=== PATIENT | male | born 1955 | race Caucasian/White ===

== ENCOUNTER → 2018-02-06 | Outpatient (CLI) | payer OTHER ==
[~2018-02-06] MED LIST: BENA10 PO; ESCI5 PO; LIDO5TP TOP; ONDA4 PO; OXYACE5T PO; POTCHL10ER PO
[2018-02-06 11:26] LABS: Microalbumin, Random Urine 10.8 mg/L (0.000-20.000)
[2018-02-06 11:27] LABS: Microalb/Creat Ratio UR, Rand 5.482 mg/g (0.000-30.000)
== END | disposition home or self-care (01) ==
LOC: LAB SHORT 08:08 → LAB EV 08:08
PROVIDERS: Hospitalist
DX: E78.4 Other hyperlipidemia (principal); R73.02 Impaired glucose tolerance (oral); I10 Essential (primary) hypertension
CPT/HCPCS: 82043; 82570

== ENCOUNTER → 2019-01-29 | Outpatient (CLI) | payer OTHER | END | disposition home or self-care (01) | LOC: LAB SHORT 16:41 → LAB 16:41 | DX: F19.10 Other psychoactive substance abuse, uncomplicated (principal) ==

== ENCOUNTER 2019-04-22 02:05 | Observation (INO) | payer OTHER ==
[~2019-04-22] VITALS: Ht 182.9 cm; Wt 154.0 kg
[~2019-04-22 02:05] MED LIST changes: -BENA10 PO; +ESCI20 PO; -ESCI5 PO; +Lotensin40 MG PO
[2019-04-22 03:53] LABS: BASOPHILS ABSOLUTE AUTO 0.05 K/mm3 (0.00-0.23); BASOPHILS PERCENT AUTO 0 % (0-2); EOSINOPHILS ABSOLUTE AUTO 0.26 K/mm3 (0.00-0.68); EOSINOPHILS PERCENT AUTO 2 % (0-6); Hematocrit 33.7 % (37.0-53.0); Hemoglobin 10.6 g/dL (13.5-17.5); IMMATURE GRAN ABSOLUTE AUTO 0.04 K/mm3 (0.00-0.10); IMMATURE GRAN PERCENT AUTO 0 % (0-1); LYMPHOCYTES ABSOLUTE AUTO 1.16 K/mm3 (0.84-5.20); LYMPHOCYTES PERCENT AUTO 10 % (21-46); MONOCYTES ABSOLUTE AUTO 0.83 K/mm3 (0.16-1.47); MONOCYTES PERCENT AUTO 7 % (4-13); Mean Corpuscular HGB 29.9 pg (26.0-34.0); Mean Corpuscular HGB Conc 31.5 g/dL (31.5-36.5); Mean Corpuscular Volume 95 fL (80-100); Mean Platelet Volume 9.9 fL (9.1-12.4); NEUTROPHILS ABSOLUTE AUTO 9.36 K/mm3 (1.96-9.15); NEUTROPHILS PERCENT AUTO 80 % (41-73); Platelet Count 256 K/mm3 (150-400); RDW Coefficient Variation 13.3 % (11.7-14.2); RDW Standard Deviation 47.3 fL (35.1-46.3); Red Blood Cell Count 3.54 M/mm3 (4.30-5.90)
[2019-04-22 04:17] LABS: Alanine Aminotransfer (ALT/SGP 21 U/L (12-78); Albumin/Globulin Ratio 0.9 (0.8-1.8); Alk Phos 89 U/L (50-136); Anion Gap 5 mmol/L (6-16); Aspartate Aminotrans (AST/SGOT 64 U/L (12-37); Bilirubin, Total 0.4 mg/dL (0.1-1.0); Blood Urea Nitrogen 15 mg/dL (8-24); Bun/Creatinine Ratio 16.8 (12.0-20.0); CO2, Blood 28 mmol/L (21-32); Calcium, Blood 8.6 mg/dL (8.5-10.1); Chloride, Blood 108 mmol/L (98-108); Creatinine, Blood 0.89 mg/dL (0.60-1.20); Globulin, Blood 3.3 g/dL (2.2-4.0); Glomerular Filtration Rate >60 (60-); Glucose, Blood 114 mg/dL (70-99); Potassium, Blood 4.9 mmol/L (3.5-5.5); Sodium, Blood 141 mmol/L (136-145); Total Protein, Blood 6.3 g/dL (6.4-8.2); Troponin I 0.015 ng/mL (0.000-0.040)
[2019-04-22 07:40] LABS: Source, Urine Clean Catch
[2019-04-22 07:45] LABS: Bilirubin, Urine Neg (Neg); Blood, Urine Neg (Neg); Glucose Qualitative, Urine Neg (Neg); Ketones, Urine Neg (Neg); Leukocyte Esterase, Urine 1+ (Neg); Nitrite, Urine Neg (Neg); Protein, Urine 1+ (Neg); Specific Gravity, Urine 1.015 (1.003-1.022); Urobilinogen, Urine NORM (Normal)
[2019-04-22 07:52] LABS: Appearance, Urine Clear (Clear); Color, Urine Yellow (P-Yellow)
[2019-04-22 07:54] LABS: Red Blood Cells, Urine 0-2 /hpf (0-2)
[2019-04-22 07:55] LABS: Bacteria Rare /hpf; Squamous Epithelial Cells Rare /hpf (Few)
--- NOTE | 2019-04-22 14:42 | NUR ---
PT. SITTING ON EDGE OF BED, DRESSING ON LUMBAR SURGICAL INCISION STARTING TO ROLL UP. STRAIGHTENED IT OUT AND REINFORCED THE BOTTOM OF DRESSING. DSG ON DRAIN SITE SATURATED WITH ROSS FLUID. REMOVED DRESSING AND CLEANED AREA WITH SKINTEGRITY AND REPLACED WITH MEPILEX DRSG.
--- NOTE | 2019-04-22 18:16 | NUR ---
PT. OUT WALKING IN MONREAL WITH CANE, TOLERATING WELL . PT. HAS BACK BRACE IN PLACE. NO NOTEABLE CHANGES THIS SHIFT. RT HAS CHECKED OUT HIS CPAP AND SET IT UP.
[2019-04-23 05:07] LABS: BASOPHILS ABSOLUTE AUTO 0.02 K/mm3 (0.00-0.23); BASOPHILS PERCENT AUTO 0 % (0-2); EOSINOPHILS ABSOLUTE AUTO 0.56 K/mm3 (0.00-0.68); EOSINOPHILS PERCENT AUTO 7 % (0-6); Hematocrit 29.4 % (37.0-53.0); IMMATURE GRAN ABSOLUTE AUTO 0.03 K/mm3 (0.00-0.10); IMMATURE GRAN PERCENT AUTO 0 % (0-1); LYMPHOCYTES ABSOLUTE AUTO 1.15 K/mm3 (0.84-5.20); LYMPHOCYTES PERCENT AUTO 13 % (21-46); MONOCYTES ABSOLUTE AUTO 0.53 K/mm3 (0.16-1.47); MONOCYTES PERCENT AUTO 6 % (4-13); Mean Corpuscular HGB 29.7 pg (26.0-34.0); Mean Corpuscular HGB Conc 30.6 g/dL (31.5-36.5); Mean Corpuscular Volume 97 fL (80-100); NEUTROPHILS ABSOLUTE AUTO 6.27 K/mm3 (1.96-9.15); NEUTROPHILS PERCENT AUTO 73 % (41-73); Platelet Count 245 K/mm3 (150-400); RDW Coefficient Variation 13.4 % (11.7-14.2); RDW Standard Deviation 48.1 fL (35.1-46.3); Red Blood Cell Count 3.03 M/mm3 (4.30-5.90); White Blood Cell Count 8.56 K/mm3 (4.00-11.30)
[2019-04-23 05:30] LABS: Anion Gap 5 mmol/L (6-16); Blood Urea Nitrogen 15 mg/dL (8-24); Bun/Creatinine Ratio 16.3 (12.0-20.0); CO2, Blood 28 mmol/L (21-32); Chloride, Blood 107 mmol/L (98-108); Creatinine, Blood 0.92 mg/dL (0.60-1.20); Glomerular Filtration Rate >60 (60-); Glucose, Blood 119 mg/dL (70-99); Potassium, Blood 4.4 mmol/L (3.5-5.5); Sodium, Blood 140 mmol/L (136-145)
--- NOTE | 2019-04-23 06:27 | NUR ---
SHIFT SUMMARY PATIENT IS ALERT AND ORIENTED. AMBULATED THROUGH THE MONREAL WITH BACK BRACE ON. PATIENT DID NOT BEND, TWIST OR LIFT ANYTHING HEAVIER THAN 5LBS. PATIENT DID COMPLAIN OF PAIN AND INFORMED ME THAT THE SURGEON WANTED HIM TO BE GETTING HIS PAIN MEDICATIONS Q3 FOR 11 DAYS. PATIENTS ORDERS WERE FOR Q4H. HOSPITALIST CHANGED THIS TO Q3H. PATIENT SLEPT WITH CPAP ON. USES CALL LIGHT APPROPRIATELY. INDEPENDENT IN ROOM. NO NEW CHANGES THROUGHOUT THE NIGHT. VITALS STABLE. NO COMPLAINTS OF CHEST PAIN OR SOB THROUGHOUT SHIFT. DID COMPLAIN OF RIGHT SHOULDER PAIN THAT IS CHRONIC.
--- NOTE | 2019-04-23 18:44 | NUR ---
PT. SITTING ON EDGE OF BED EATING DINNER. FAMILY AT BEDSIDE. PT. PUT ON A FLUID RESTRICITON TODAY OF 1500 ML. HAS BEEN UP AMBULATING IN MONERAL WITH P.T. AND A CANE. BRACE IN PLACE. NO NOTEABLE CHANGES THIS SHIFT.
[2019-04-23 21:23] LABS: Vancomycin, Trough 18.9 ug/mL (5.0-10.0)
--- NOTE | 2019-04-24 05:32 | NUR ---
SHIFT SUMMARY: 63 Y/O OBESE MALE RESTED COMFORTABLY ALL SHIFT WHILE WEARING C-PAP. PTS VOICED ADEQUATE PAIN CONTROL WITH OXYCODONE FOR BACK DISCOMFORT. PT ALERT AND ORIENTED X 4; ABLE SWALLOW ALL MEDICAITIONS WITHOUT ISSUE. PT WEARING BACK BRACE ALL SHIFT WITH BACK DRESSINGS DRY AND INTACT. TELEMETRY REFLECTS NSR. PTS VANCOMYCIN TROUGH LEVEL WAS 18.9 WITH NEXT LEVEL DUE 04/24. PTS BED LOW POSITION, CALL LIGHT AT SIDE.
[2019-04-24 08:32] LABS: BASOPHILS ABSOLUTE AUTO 0.03 K/mm3 (0.00-0.23); BASOPHILS PERCENT AUTO 1 % (0-2); EOSINOPHILS ABSOLUTE AUTO 0.68 K/mm3 (0.00-0.68); EOSINOPHILS PERCENT AUTO 10 % (0-6); Hemoglobin 9.5 g/dL (13.5-17.5); IMMATURE GRAN ABSOLUTE AUTO 0.02 K/mm3 (0.00-0.10); IMMATURE GRAN PERCENT AUTO 0 % (0-1); LYMPHOCYTES ABSOLUTE AUTO 1.07 K/mm3 (0.84-5.20); LYMPHOCYTES PERCENT AUTO 16 % (21-46); MONOCYTES ABSOLUTE AUTO 0.65 K/mm3 (0.16-1.47); MONOCYTES PERCENT AUTO 10 % (4-13); Mean Corpuscular HGB 29.4 pg (26.0-34.0); Mean Corpuscular HGB Conc 30.6 g/dL (31.5-36.5); Mean Corpuscular Volume 96 fL (80-100); Mean Platelet Volume 9.5 fL (9.1-12.4); NEUTROPHILS ABSOLUTE AUTO 4.06 K/mm3 (1.96-9.15); NEUTROPHILS PERCENT AUTO 62 % (41-73); Platelet Count 275 K/mm3 (150-400); RDW Coefficient Variation 13.2 % (11.7-14.2); Red Blood Cell Count 3.23 M/mm3 (4.30-5.90); White Blood Cell Count 6.51 K/mm3 (4.00-11.30)
[2019-04-24 08:50] LABS: Anion Gap 5 mmol/L (6-16); Blood Urea Nitrogen 10 mg/dL (8-24); Bun/Creatinine Ratio 10.4 (12.0-20.0); CO2, Blood 29 mmol/L (21-32); Calcium, Blood 8.4 mg/dL (8.5-10.1); Chloride, Blood 107 mmol/L (98-108); Creatinine, Blood 0.97 mg/dL (0.60-1.20); Glomerular Filtration Rate >60 (60-); Glucose, Blood 123 mg/dL (70-99); Potassium, Blood 4.2 mmol/L (3.5-5.5); Sodium, Blood 141 mmol/L (136-145)
[2019-04-24] MEDS ORDERED: FLUT1DIS5 INH (08:55)
[2019-04-24] MEDS ORDERED: AMLO5 PO (08:57)
[2019-04-24] MEDS ORDERED: COMBIVENT RESPIM4 GM INH (08:58)
[2019-04-24] MEDS ORDERED: CYCL10 PO (08:59)
[2019-04-24] MEDS ORDERED: FURO40 PO (08:59)
[2019-04-24] MEDS ORDERED: FOLI1 PO (08:59)
[2019-04-24] MEDS ORDERED: GABA300 PO (09:00)
[2019-04-24] MEDS ORDERED: METO25ER PO (09:01)
[2019-04-24] MEDS ORDERED: K-Tab10 MEQ PO (09:02)
[2019-04-24] MEDS ORDERED: Percocet 7.5-31 EACH PO (09:02)
[2019-04-24] MEDS ORDERED: AMOCLA500 PO (11:10)
--- NOTE | 2019-04-24 17:51 | NUR ---
DISCHARGE SUMMARY PATIENT A&O X4. C/O PAIN T/O SHIFT. MEDICATED PER E DEC. DENIES SOB OR NAUSEA. SURGICAL DRESSING IN PLACE TO LOWER BACK, WNL. MEPILEX DRESSING TO OLD DRAIN SITE CHANGE THIS SHIFT, C/D/I NO DRAINAGE PRESENT. ALL DISCHARGE INSTRUCTIONS REVIEWED WITH THE PATIENT. MEDICATIONS FAXED. PATIENT EDUCATION PROVIDED. IV D/C, WNL. PATIENT SENT HOME ON AN 1,800 ML FLUID RESTRICTION. MAGISTRATE JUDGE ESCORTED PATIENT OUT, ALL BELONGINGS IN HAND.
== END 2019-04-24 13:28 | disposition home or self-care (01) ==
LOC: ER 02:05 → MEDS 02:06 → ER 06:39 → MEDS 06:39 → ENPENDDIS 04-24 10:17 → MEDS 04-24 13:28
PROVIDERS: Emergency Medicine; Internal Medicine; ADMIT Hospitalist
DX: J18.1 Lobar pneumonia, unspecified organism (principal); E66.9 Obesity, unspecified; R60.0 Localized edema; G47.33 Obstructive sleep apnea (adult) (pediatric); I10 Essential (primary) hypertension; Z79.899 Other long term (current) drug therapy; Z98.890 Other specified postprocedural states; Z88.5 Allergy status to narcotic agent; Z91.040 Latex allergy status; Z99.89 Dependence on other enabling machines and devices
CPT/HCPCS: 36415; 71046; 71260; 80048; 80053; 80202; 81001; 83690; 83880; 84484; 85025; 87086; 93005; 93010; 93306; 94762; 96365-59; 96366; 96367; 96372; 96375; 96375-59; 96376; 97116; 97161; 97530; 99285-25; G0378; J0456; J0696; J1170; J1650; J1940; J2405; J2543; J3370; J7040; J7050; Q9967

== ENCOUNTER → 2019-07-23 | Outpatient (CLI) | payer OTHER ==
[~2019-07-23] MED LIST changes: +AMLO5 PO; +AMOCLA500 PO; +COMBIVENT RESPIM4 GM INH; +CYCL10 PO; +FLUT1DIS5 INH; +FOLI1 PO; +FURO40 PO; +GABA300 PO; +K-Tab10 MEQ PO; +METO25ER PO; +Percocet 7.5-31 EACH PO
[2019-07-23 16:06] LABS: BASOPHILS ABSOLUTE AUTO 0.08 K/mm3 (0.00-0.23); BASOPHILS PERCENT AUTO 1 % (0-2); EOSINOPHILS ABSOLUTE AUTO 0.46 K/mm3 (0.00-0.68); EOSINOPHILS PERCENT AUTO 6 % (0-6); Hematocrit 36.9 % (37.0-53.0); Hemoglobin 11.5 g/dL (13.5-17.5); IMMATURE GRAN ABSOLUTE AUTO 0.02 K/mm3 (0.00-0.10); IMMATURE GRAN PERCENT AUTO 0 % (0-1); LYMPHOCYTES ABSOLUTE AUTO 2.17 K/mm3 (0.84-5.20); LYMPHOCYTES PERCENT AUTO 26 % (21-46); MONOCYTES ABSOLUTE AUTO 0.82 K/mm3 (0.16-1.47); MONOCYTES PERCENT AUTO 10 % (4-13); Mean Corpuscular HGB 25.9 pg (26.0-34.0); Mean Corpuscular HGB Conc 31.2 g/dL (31.5-36.5); Mean Corpuscular Volume 83 fL (80-100); Mean Platelet Volume 9.4 fL (9.1-12.4); NEUTROPHILS ABSOLUTE AUTO 4.79 K/mm3 (1.96-9.15); NEUTROPHILS PERCENT AUTO 58 % (41-73); Platelet Count 287 K/mm3 (150-400); RDW Coefficient Variation 15.7 % (11.7-14.2); RDW Standard Deviation 47.2 fL (35.1-46.3); Red Blood Cell Count 4.44 M/mm3 (4.30-5.90); White Blood Cell Count 8.34 K/mm3 (4.00-11.30)
[2019-07-23 16:18] LABS: Anion Gap 7 mmol/L (6-16); Blood Urea Nitrogen 10 mg/dL (8-24); Bun/Creatinine Ratio 11.4 (12.0-20.0); CO2, Blood 28 mmol/L (21-32); Calcium, Blood 8.1 mg/dL (8.5-10.1); Chloride, Blood 106 mmol/L (98-108); Creatinine, Blood 0.88 mg/dL (0.60-1.20); Glomerular Filtration Rate >60 (60-); Glucose, Blood 97 mg/dL (70-99); Potassium, Blood 3.8 mmol/L (3.5-5.5); Sodium, Blood 141 mmol/L (136-145); Troponin I <0.017 ng/mL (0.000-0.040)
== END | disposition home or self-care (01) ==
LOC: LAB SHORT 16:02 → LAB EV 16:02
PROVIDERS: Physician Assistant Surgical
DX: R06.00 Dyspnea, unspecified (principal)
CPT/HCPCS: 80048; 83880; 84484; 85025

== ENCOUNTER → 2020-03-10 | Outpatient (CLI) | payer OTHER | END | disposition home or self-care (01) | LOC: LAB 14:14 → LAB SHORT 14:14 | DX: J45.909 Unspecified asthma, uncomplicated (principal) | CPT/HCPCS: 87070; 87077; 87186; 87205 ==

== ENCOUNTER → 2020-03-31 | Outpatient (CLI) | payer OTHER | END | disposition home or self-care (01) | LOC: LAB 08:37 → LAB SHORT 08:37 | DX: J44.9 Chronic obstructive pulmonary disease, unspecified (principal) | CPT/HCPCS: 87070; 87077; 87186; 87205 ==

== ENCOUNTER 2022-07-29 19:04 | Emergency (ER) | payer OTHER ==
[~2022-07-29] VITALS: Ht 182.9 cm; Wt 136.1 kg
== END 2022-07-29 19:52 | disposition home or self-care (01) ==
LOC: ER 19:04
DX: S01.01XA Laceration without foreign body of scalp, initial encounter (principal); I10 Essential (primary) hypertension; W22.09XA Striking against other stationary object, initial encounter; Z91.040 Latex allergy status; Z88.5 Allergy status to narcotic agent; Z79.899 Other long term (current) drug therapy; Z96.649 Presence of unspecified artificial hip joint; Z96.612 Presence of left artificial shoulder joint; Z87.891 Personal history of nicotine dependence
CPT/HCPCS: 12001; 99282-25

== ENCOUNTER → 2022-11-23 | Outpatient (CLI) | payer OTHER ==
[2022-11-23 12:56] LABS: Creatinine, Urine Random 29.1 mg/dL (27.00-270.00)
[2022-11-23 12:59] LABS: Microalb/Creat Ratio UR, Rand 82.131 mg/g (0.000-30.000); Microalbumin, Random Urine 23.9 mg/L (0.000-20.000)
== END | disposition home or self-care (01) ==
LOC: LAB 08:47 → LAB SHORT 08:47
PROVIDERS: Hospitalist
DX: I10 Essential (primary) hypertension (principal); R60.9 Edema, unspecified
CPT/HCPCS: 82043; 82570

== ENCOUNTER 2022-12-13 21:31 | Inpatient (IN) | payer OTHER ==
[~2022-12-13] VITALS: Ht 182.9 cm; Wt 145.2 kg
[2022-12-13 23:14] LABS: BASOPHILS ABSOLUTE AUTO 0.08 K/mm3 (0.00-0.23); BASOPHILS PERCENT AUTO 1 % (0-2); EOSINOPHILS ABSOLUTE AUTO 0.29 K/mm3 (0.00-0.68); EOSINOPHILS PERCENT AUTO 3 % (0-6); Hematocrit 47.7 % (37.0-53.0); Hemoglobin 15.8 g/dL (13.5-17.5); IMMATURE GRAN ABSOLUTE AUTO 0.07 K/mm3 (0.00-0.10); IMMATURE GRAN PERCENT AUTO 1 % (0-1); LYMPHOCYTES ABSOLUTE AUTO 3.59 K/mm3 (0.84-5.20); LYMPHOCYTES PERCENT AUTO 38 % (21-46); MONOCYTES ABSOLUTE AUTO 1.06 K/mm3 (0.16-1.47); MONOCYTES PERCENT AUTO 11 % (4-13); Mean Corpuscular HGB Conc 33.1 g/dL (31.5-36.5); Mean Corpuscular Volume 100 fL (80-100); Mean Platelet Volume 9.6 fL (9.1-12.4); NEUTROPHILS ABSOLUTE AUTO 4.37 K/mm3 (1.96-9.15); NEUTROPHILS PERCENT AUTO 46 % (41-73); Platelet Count 247 K/mm3 (150-400); RDW Coefficient Variation 14.5 % (11.7-14.2); RDW Standard Deviation 53.6 fL (35.1-46.3); Red Blood Cell Count 4.79 M/mm3 (4.30-5.90); White Blood Cell Count 9.46 K/mm3 (4.00-11.30)
[2022-12-13 23:36] LABS: Magnesium, Blood 2.6 mg/dL (1.6-2.4)
[2022-12-13 23:38] LABS: Base Excess Venous 1.1 mmol/L; Bicarbonate Venous 24.1 mmol/L (24.0-30.0); pH Blood Venous 7.32 (7.34-7.37)
[2022-12-14 00:14] LABS: Albumin, Blood 3.5 g/dL (3.4-5.0); Albumin/Globulin Ratio 0.9 (0.8-1.8); Bilirubin, Total 0.5 mg/dL (0.1-1.0); Bun/Creatinine Ratio 27.2 (12.0-20.0); Calcium, Blood 8.6 mg/dL (8.5-10.1); Creatinine, Blood 0.96 mg/dL (0.60-1.20); Globulin, Blood 4.1 g/dL (2.2-4.0); Potassium, Blood 4.2 mmol/L (3.5-5.5); Total Protein, Blood 7.6 g/dL (6.4-8.2)
[2022-12-14 00:59] LABS: Influenza A, PCR NEGATIVE (NEGATIVE); Influenza B, PCR NEGATIVE (NEGATIVE); Resp Syncytial Virus, PCR NEGATIVE (NEGATIVE); SARS-Cov-2 (COVID-19) PCR, MMC NEGATIVE (NEGATIVE)
[2022-12-14 05:48] LABS: BASOPHILS ABSOLUTE AUTO 0.08 K/mm3 (0.00-0.23); BASOPHILS PERCENT AUTO 1 % (0-2); EOSINOPHILS ABSOLUTE AUTO 0.18 K/mm3 (0.00-0.68); EOSINOPHILS PERCENT AUTO 2 % (0-6); Hematocrit 44.6 % (37.0-53.0); Hemoglobin 14.4 g/dL (13.5-17.5); IMMATURE GRAN ABSOLUTE AUTO 0.07 K/mm3 (0.00-0.10); IMMATURE GRAN PERCENT AUTO 1 % (0-1); LYMPHOCYTES PERCENT AUTO 27 % (21-46); MONOCYTES ABSOLUTE AUTO 1.07 K/mm3 (0.16-1.47); MONOCYTES PERCENT AUTO 12 % (4-13); Mean Corpuscular HGB 32.1 pg (26.0-34.0); Mean Corpuscular HGB Conc 32.3 g/dL (31.5-36.5); Mean Corpuscular Volume 100 fL (80-100); Mean Platelet Volume 9.3 fL (9.1-12.4); NEUTROPHILS ABSOLUTE AUTO 5.02 K/mm3 (1.96-9.15); NEUTROPHILS PERCENT AUTO 57 % (41-73); Platelet Count 235 K/mm3 (150-400); RDW Coefficient Variation 14.7 % (11.7-14.2); RDW Standard Deviation 53.9 fL (35.1-46.3); Red Blood Cell Count 4.48 M/mm3 (4.30-5.90); White Blood Cell Count 8.82 K/mm3 (4.00-11.30)
--- NOTE | 2022-12-14 06:00 | NUR ---
END OF SHIFT NURSING REPORT - PM Patient admitted for acute respiratory failure with eTOH 363 and states drinking wiskey last night. CIWA 7 and medicated with Librium. BP 180/74 , medicated with hydralazine as ordered. Hx of sleep apnea, facility provided CPAP initiated upon arrival. He declines pain, but states headache and feeling anxious. 2 nurse skin assessment completed. Abdomen round and distended, abdominal sounds active in all quadrants. Opted IN for Flu Vaccine and administered to left deltoid.
[2022-12-14 07:24] LABS: Albumin, Blood 3.3 g/dL (3.4-5.0); Albumin/Globulin Ratio 0.8 (0.8-1.8); Bilirubin, Total 0.3 mg/dL (0.1-1.0); Bun/Creatinine Ratio 27.7 (12.0-20.0); Calcium, Blood 8.2 mg/dL (8.5-10.1); Creatinine, Blood 0.83 mg/dL (0.60-1.20); Potassium, Blood 4.1 mmol/L (3.5-5.5); Total Protein, Blood 7.3 g/dL (6.4-8.2)
[2022-12-14] MEDS ORDERED: FORMOTEROL20 MCG/2 M INH (10:45)
[2022-12-14] MEDS ORDERED: BUDESONIDE1 MG/2 M1 INH (10:46)
[2022-12-14] MEDS ORDERED: ATROVENT HFA12.9 GM INH (10:47)
[2022-12-14] MEDS ORDERED: BUPRENO-NALOX1 EACH SL (11:08)
[2022-12-14] MEDS ORDERED: INDERAL XL80 MG PO (11:09)
[2022-12-14] MEDS ORDERED: POTCHL10ER PO (11:10)
[2022-12-14] MEDS ORDERED: IBUP800 PO (11:14)
[2022-12-14] MEDS ORDERED: MAGNESIUM OXID500 MG PO (11:14)
[2022-12-14] MEDS ORDERED: Prinivil10 MG PO (11:15)
[2022-12-14] MEDS ORDERED: PANT40 PO (11:16)
[2022-12-14] MEDS ORDERED: AMOX-CLAV 875-1 EAC5 PO (11:17)
[2022-12-14] MEDS ORDERED: ALPR.25 PO (11:18)
[2022-12-14] MEDS ORDERED: ESCI20 PO (11:19)
[2022-12-14] MEDS ORDERED: ALBU90OI INH (11:19)
[2022-12-14] MEDS ORDERED: GABA300 PO (11:20)
[2022-12-14] MEDS ORDERED: XARELTO20 MG PO (11:21)
[2022-12-14] MEDS ORDERED: Buspirone HCl15 MG PO (11:22)
[2022-12-14] MEDS ORDERED: CYCL10 PO (11:23)
[2022-12-14] MEDS ORDERED: CATAPRES0.1 MG PO (11:40)
[2022-12-14] MEDS ORDERED: LASIX40 MG PO (11:41)
[2022-12-14] MEDS ORDERED: SPIR50 PO (11:42)
[2022-12-14] MEDS ORDERED: OLME20 PO (11:42)
--- NOTE | 2022-12-14 17:03 | NUR ---
PT IS A/OX4, PLEASANT AND COOPERATIVE. FLUSHED LOOK. PT IS UP WITH ASSIST TO THE BATHROOM. PT IS SHAKEY AND HAS MILD HALUCINATIONS AT TIMES. ATIVAN AND LIBRIUM GIVEN FOR WD SYMPTOMS. THE PT WAS GIVEN PRN HYDRAZOLINE FOR ELEVATED BP TODAY. PT IS ON TELE. PT MEDICATED FOR PAIN X2 SO FAR TODAY. CALL LIGHT IN REACH. WILL CONTINUE TO MONITOR AND ASSESS FOR CHANGES.
--- NOTE | 2022-12-15 05:41 | NUR ---
PT IS A&O4, SB TO THE BR, USES CPAP @NIGHT, CIWAS <7 OVERNIGHT, PT STATES FEELS MUCH BETTER, NO COMPLAINTS OF PAIN OR DISCOMFORT,CONTINUE POC
--- NOTE | 2022-12-15 18:15 | NUR ---
PT IS A/OX4, PLEASANT AND COOPERATIVE. THE PT IS UP IND IN HIS ROOM TO THE BATHROOM. TODAY THE PT SEEMED TO HAVE LESS TREMOR COMPARED TO YESTERDAY. THE PT DENIED ANY HALUCINATIONS TODAY. PT WAS GIVEN LIBRIUM X2 SO FAR TODAT. PT WAS MEDICATED FOR CHRONIC BACK PAIN X3 SO FAR TODAY. PT RECIEVED BREATHING TX'S T/O THE DAY. PT IS ON 02 1L/MIN PT WERE CPAP WHILE NAPPING. CALL LIGHT IN REWACH. WILL CONTINUE TO MONITOR AND ASSESS FOR CHANGES
[2022-12-16 04:48] LABS: BASOPHILS ABSOLUTE AUTO 0.01 K/mm3 (0.00-0.23); BASOPHILS PERCENT AUTO 0 % (0-2); EOSINOPHILS PERCENT AUTO 0 % (0-6); Hematocrit 45.6 % (37.0-53.0); Hemoglobin 15.2 g/dL (13.5-17.5); IMMATURE GRAN ABSOLUTE AUTO 0.07 K/mm3 (0.00-0.10); IMMATURE GRAN PERCENT AUTO 1 % (0-1); LYMPHOCYTES PERCENT AUTO 12 % (21-46); MONOCYTES ABSOLUTE AUTO 0.59 K/mm3 (0.16-1.47); MONOCYTES PERCENT AUTO 6 % (4-13); Mean Corpuscular HGB 32.8 pg (26.0-34.0); Mean Corpuscular HGB Conc 33.3 g/dL (31.5-36.5); Mean Corpuscular Volume 98 fL (80-100); Mean Platelet Volume 9.9 fL (9.1-12.4); NEUTROPHILS ABSOLUTE AUTO 8.57 K/mm3 (1.96-9.15); NEUTROPHILS PERCENT AUTO 82 % (41-73); Platelet Count 234 K/mm3 (150-400); RDW Coefficient Variation 14.2 % (11.7-14.2); RDW Standard Deviation 51.5 fL (35.1-46.3); Red Blood Cell Count 4.64 M/mm3 (4.30-5.90); White Blood Cell Count 10.44 K/mm3 (4.00-11.30)
[2022-12-16 05:09] LABS: Albumin, Blood 3.5 g/dL (3.4-5.0); Albumin/Globulin Ratio 0.9 (0.8-1.8); Bilirubin, Direct 0.1 mg/dL (0.0-0.3); Bilirubin, Indirect 0.6 mg/dL (0.1-0.7); Bilirubin, Total 0.7 mg/dL (0.1-1.0); Bun/Creatinine Ratio 41.7 (12.0-20.0); Calcium, Blood 8.9 mg/dL (8.5-10.1); Creatinine, Blood 0.98 mg/dL (0.60-1.20); Globulin, Blood 3.9 g/dL (2.2-4.0); Phosphorus, Blood 3.9 mg/dL (2.5-4.9); Potassium, Blood 4.9 mmol/L (3.5-5.5); Total Protein, Blood 7.4 g/dL (6.4-8.2)
--- NOTE | 2022-12-16 06:12 | NUR ---
SHIFT SUMMARY; NO ACUTE CHANGES OVERNIGHT. THE PT IS AXO X4 AND INDEPENDENT TO THE BATHROOM. THE PT USES CPAP AT NIGHT WITH 3L BLEED IN, O2 SATS WERE >92%. TELE IS IN PLACE, SINUS MOHIT IN THE 50'S T/O THE NIGHT. THE OPT REQUESTED PRN PAIN MEDICATION TWICE FOR CHRONIC PAIN LAST NIGHT. THE PT WAS HYPERTENSIVE LAST, HYDRALAZINE WAS GIVEN TWICE. THIS AM THE PTS B/P REMAINED UNCHANGED FROM RECIEVEING HYDRALAZINE. CURRENTLY THE PT IS RESTING IN BED WITH NO ACUTE COMPLAINTS, THE BED IS IN THE LOWEST POSITION AND THE CALL LIGHT IS AT BEDSIDE.
--- NOTE | 2022-12-16 14:59 | NUR ---
O2 OFF. PER MD ORDER, TURNED PT'S O2 OFF TO TRIAL ON RA WHILE IN BED RESTING. O2 SATS ARE REMAINING >95% ON RA WHILE IN BED RESTING.
--- NOTE | 2022-12-16 18:54 | NUR ---
SHIFT SUMMARY A&O X 4. VSS. INDEPENDENT IN THE ROOM FOR RESTROOM USE. MEDICATED FOR C/O CHRONIC BACK PAIN PER EMAR WITH GOOD RELIEF STATED BY PT. PT IS MAINTAINING O2 SATS >95% ON RA. WEARS C-PAP AT NOC WITH 2 L'S O2 BLEED IN. NEW PIV STARTED IN L AC WITH 20 G X 1 ATTEMPT. PIV IN R AC LEAKING, DC'D WITH CATH TIP INTACT, NO REDNESS OE SWELLING NOTED. PT PLEASANT & COOPERATIVE WITH ALL CARE.
[2022-12-17 04:57] LABS: BASOPHILS ABSOLUTE AUTO 0.01 K/mm3 (0.00-0.23); BASOPHILS PERCENT AUTO 0 % (0-2); EOSINOPHILS PERCENT AUTO 0 % (0-6); Hematocrit 42.4 % (37.0-53.0); Hemoglobin 14.2 g/dL (13.5-17.5); IMMATURE GRAN ABSOLUTE AUTO 0.08 K/mm3 (0.00-0.10); IMMATURE GRAN PERCENT AUTO 1 % (0-1); LYMPHOCYTES PERCENT AUTO 12 % (21-46); MONOCYTES ABSOLUTE AUTO 0.29 K/mm3 (0.16-1.47); MONOCYTES PERCENT AUTO 4 % (4-13); Mean Corpuscular HGB 32.9 pg (26.0-34.0); Mean Corpuscular HGB Conc 33.5 g/dL (31.5-36.5); Mean Corpuscular Volume 98 fL (80-100); Mean Platelet Volume 10.3 fL (9.1-12.4); NEUTROPHILS ABSOLUTE AUTO 7.01 K/mm3 (1.96-9.15); NEUTROPHILS PERCENT AUTO 84 % (41-73); Platelet Count 211 K/mm3 (150-400); RDW Coefficient Variation 14.1 % (11.7-14.2); RDW Standard Deviation 51.4 fL (35.1-46.3); Red Blood Cell Count 4.31 M/mm3 (4.30-5.90); White Blood Cell Count 8.39 K/mm3 (4.00-11.30)
[2022-12-17 05:20] LABS: Albumin, Blood 3.2 g/dL (3.4-5.0); Anion Gap 5 mmol/L (6-16); Blood Urea Nitrogen 56 mg/dL (8-24); Bun/Creatinine Ratio 49.1 (12.0-20.0); CO2, Blood 24 mmol/L (21-32); Calcium, Blood 8.3 mg/dL (8.5-10.1); Chloride, Blood 103 mmol/L (98-108); Creatinine, Blood 1.14 mg/dL (0.60-1.20); Glomerular Filtration Rate 71 (60-); Glucose, Blood 218 mg/dL (70-99); Phosphorus, Blood 4.5 mg/dL (2.5-4.9); Potassium, Blood 4.9 mmol/L (3.5-5.5); Sodium, Blood 132 mmol/L (136-145)
--- NOTE | 2022-12-17 06:45 | NUR ---
LYING IN SEMI FOWLERS WITH EYES OPEN WHILE EATING A SNACK AND WATCHING TV. HAS RESTED MINIMALLY THIS SHIFT. HE WAS ABLE TO SLEEP FROM 11M TO 5AM. ONCE HE WOKE UP HE WAS UPSET THAT NURSING DIDN'T WAKE HIM UP TO MEDICATE HIM FOR PAIN. NURSING REITERATED THAT PRN MEDS ARE GIVEN WHEN ASKED FOR AND SCHEDULED MEDS ARE GIVEN WHEN SCHEDULED. AND THAT HIS PAIN MEDS ARE PRN. HE VOICED UNDERSTANDING FOR THE SECOND TIME, BUT STATED THAT HE BELIEVED THAT HIS PAIN MEDS SHOULD BE SCHEDULED. CONTINENT OF BOWEL AND BLADDER, ABLE TO AMBULATE TO BATHROOM. CURRENTLY DENIES PAIN, DISCOMFORT, OR FURTHER NEEDS. SAFETY MEASURES IN PLACE. WILL GIVE HAND OFF TO ONCOMING SHIFT USING SBAR DURING BEDSIDE REPORT. WILL CONTINUE TO MONITOR AND ADDRESS NEEDS THEY ARISE.
--- NOTE | 2022-12-17 18:19 | NUR ---
SHIFT SUMMARY PT HAS NOT HAD A BM FOR 4 DAYS, BOWEL CARE ONGOING SINCE YESTERDAY WITH NO RESULTS. PROVIDED MORE ORDERS FOR MOM & MAG CITRATE WELL SENOKOT, COLACE & MIRALAX. PT HAS BEEN UP & AMBULATING HALLS. IS ON RA WITH SATS MAINTAINING >94%. WEARS C-PAP AT [facility] WITH BLEED IN OF 2 L'S O2. CONT BI-OX IS WORN AT [facility]. PT IS A&O X 4, INDEPENDENT, IS PLEASANT & COOPERATIVE WITH ALL CARE.
--- NOTE | 2022-12-18 04:14 | NUR ---
SHIFT SUMMARY; NO ACUTE CHANGES OVERNIGHT. THE PT RESTED IN BED T/O THE NIGHT. THE PT IS AXO X4 AND INDEPENDENT IN THE ROOM. THE PT WAS MEDICATED WITH FLEXIRIL AND PERCOCET FOR CHRONIC PAIN OVER THE NIGHT. TELE IS IN PLACE, SINUS MOHIT 40/50'S T/O THE NIGHT. THE PT SLEPT WITH HIS CPAP ON, 2L BLEED IN WITH O2 SATS >95%. CURRENTLY THE PT IS RESTING IN BED WITH THE BED IN THE LOWEST POSITION AND THE CALL LIGHT AT BEDSIDE.
[2022-12-18 05:22] LABS: BASOPHILS ABSOLUTE AUTO 0.02 K/mm3 (0.00-0.23); BASOPHILS PERCENT AUTO 0 % (0-2); EOSINOPHILS ABSOLUTE AUTO 0.01 K/mm3 (0.00-0.68); EOSINOPHILS PERCENT AUTO 0 % (0-6); Hematocrit 42.6 % (37.0-53.0); Hemoglobin 14.2 g/dL (13.5-17.5); IMMATURE GRAN ABSOLUTE AUTO 0.09 K/mm3 (0.00-0.10); IMMATURE GRAN PERCENT AUTO 1 % (0-1); LYMPHOCYTES ABSOLUTE AUTO 2.19 K/mm3 (0.84-5.20); LYMPHOCYTES PERCENT AUTO 20 % (21-46); MONOCYTES ABSOLUTE AUTO 1.31 K/mm3 (0.16-1.47); MONOCYTES PERCENT AUTO 12 % (4-13); Mean Corpuscular HGB 32.8 pg (26.0-34.0); Mean Corpuscular HGB Conc 33.3 g/dL (31.5-36.5); Mean Corpuscular Volume 98 fL (80-100); Mean Platelet Volume 10.1 fL (9.1-12.4); NEUTROPHILS ABSOLUTE AUTO 7.24 K/mm3 (1.96-9.15); NEUTROPHILS PERCENT AUTO 67 % (41-73); Platelet Count 200 K/mm3 (150-400); RDW Coefficient Variation 14.1 % (11.7-14.2); RDW Standard Deviation 51.3 fL (35.1-46.3); Red Blood Cell Count 4.33 M/mm3 (4.30-5.90); White Blood Cell Count 10.86 K/mm3 (4.00-11.30)
[2022-12-18 05:42] LABS: Albumin, Blood 3.1 g/dL (3.4-5.0); Anion Gap 2 mmol/L (6-16); Blood Urea Nitrogen 49 mg/dL (8-24); CO2, Blood 27 mmol/L (21-32); Calcium, Blood 8.5 mg/dL (8.5-10.1); Chloride, Blood 107 mmol/L (98-108); Creatinine, Blood 1.02 mg/dL (0.60-1.20); Glomerular Filtration Rate 82 (60-); Glucose, Blood 158 mg/dL (70-99); Phosphorus, Blood 3.8 mg/dL (2.5-4.9); Potassium, Blood 5.2 mmol/L (3.5-5.5); Sodium, Blood 136 mmol/L (136-145)
--- NOTE | 2022-12-18 09:37 | NUR ---
SIMRAN ELDER GAVE VERBAL OK TO GIVE ALL AM MEDS. MD MORRIS PT'S HR WAS 52.
[2022-12-18] MEDS ORDERED: BUPR150ER PO (18:20)
[2022-12-18] MEDS ORDERED: PRED20 PO (18:21)
[2022-12-18] MEDS ORDERED: ACAMPROSATE CA333 MG PO (18:22)
[2022-12-18] MEDS ORDERED: Percocet 10-321 EACH PO (18:22)
--- NOTE | 2022-12-18 18:49 | NUR ---
PT BROUGHT DOWN TO ER ENTRANCE AND PICKED UP BY JOSÉ MIGUEL-FRIEND TO BRING HIM HOME. PT STABLE. PT LEFT WITH ALL BELONGINGS AND SIGNED ALL REQUIRED PAPERWORK.
== END 2022-12-18 19:09 | disposition home or self-care (01) | DRG 189 ==
LOC: ER 21:31 → MEDS 12-14 02:52
PROVIDERS: Internal Medicine Endocrinology, Diabetes & Metabolism; Student in an Organized Health Care Education/Training Program; ADMIT Internal Medicine
PROC: 3E02340 Introduction of Influenza Vaccine into Muscle, Percutaneous Approach (ICD-10-PCS; principal; 2022-12-14)
PROC: 5A09457 Assistance with Respiratory Ventilation, 24-96 Consecutive Hours, Continuous Positive Airway Pressure (ICD-10-PCS; 2022-12-14)
DX: J96.01 Acute respiratory failure with hypoxia (principal); J82.83 Eosinophilic asthma; F10.239 Alcohol dependence with withdrawal, unspecified; J45.901 Unspecified asthma with (acute) exacerbation; E87.29 Other acidosis; E87.1 Hypo-osmolality and hyponatremia; R65.10 Systemic inflammatory response syndrome (SIRS) of non-infectious origin without acute organ dysfunction; R74.01 Elevation of levels of liver transaminase levels; I10 Essential (primary) hypertension; F41.1 Generalized anxiety disorder; R94.31 Abnormal electrocardiogram [ECG] [EKG]; I48.0 Paroxysmal atrial fibrillation; F41.0 Panic disorder [episodic paroxysmal anxiety]; G89.4 Chronic pain syndrome; K59.00 Constipation, unspecified; G47.33 Obstructive sleep apnea (adult) (pediatric); B96.20 Unspecified Escherichia coli [E. coli] as the cause of diseases classified elsewhere; B96.1 Klebsiella pneumoniae [K. pneumoniae] as the cause of diseases classified elsewhere; Z20.822 Contact with and (suspected) exposure to COVID-19; Z96.643 Presence of artificial hip joint, bilateral; Z96.612 Presence of left artificial shoulder joint; Z98.890 Other specified postprocedural states; Z87.891 Personal history of nicotine dependence; Z23 Encounter for immunization; Z88.5 Allergy status to narcotic agent; Z91.040 Latex allergy status; Z79.899 Other long term (current) drug therapy; Z79.52 Long term (current) use of systemic steroids; Z79.01 Long term (current) use of anticoagulants; Z79.891 Long term (current) use of opiate analgesic; Z79.2 Long term (current) use of antibiotics; Z99.81 Dependence on supplemental oxygen
CPT/HCPCS: 0241U; 36415; 71045; 76705; 80053; 80069; 82248; 82803; 83605; 83735; 83880; 84100; 84145; 84484; 85025; 87040; 87070; 87077; 87186; 87205; 90686; 93005; 93010; 94640; 94644; 94645; 94660; 94664; 94760; 94762; 96365; 96375; 99285-25; A9270; G0480; J0360; J0456; J0696; J1650; J2060; J2920; J2930; J3475; J7030; J7050; J7060; J7626

== ENCOUNTER 2023-05-23 21:51 | Emergency (ER) | payer SELFPAY ==
[~2023-05-23] VITALS: Ht 175.3 cm; Wt 145.2 kg
[~2023-05-23 21:51] MED LIST changes: +ACAMPROSATE CA333 MG PO; +ALBU90OI INH; +ALPR.25 PO; +AMOX-CLAV 875-1 EAC5 PO; +ATROVENT HFA12.9 GM INH; +BUDESONIDE1 MG/2 M1 INH; +BUPR150ER PO; +BUPRENO-NALOX1 EACH SL; +Buspirone HCl15 MG PO; +CATAPRES0.1 MG PO; +FORMOTEROL20 MCG/2 M INH; +IBUP800 PO; +INDERAL XL80 MG PO; +LASIX40 MG PO; +MAGNESIUM OXID500 MG PO; +OLME20 PO; +PANT40 PO; +PRED20 PO; +Percocet 10-321 EACH PO; +Prinivil10 MG PO; +SPIR50 PO; +XARELTO20 MG PO
[2023-05-23 22:12] LABS: Base Excess Venous -0.2 mmol/L; Bicarbonate Venous 23.4 mmol/L (24.0-30.0); PCO2 Venous 52.4 mmHg (38-42); pH Blood Venous 7.31 (7.34-7.37)
[2023-05-23 22:13] LABS: BASOPHILS ABSOLUTE AUTO 0.05 K/mm3 (0.00-0.23); BASOPHILS PERCENT AUTO 1 % (0-2); EOSINOPHILS ABSOLUTE AUTO 0.24 K/mm3 (0.00-0.68); EOSINOPHILS PERCENT AUTO 3 % (0-6); Hematocrit 38.8 % (37.0-53.0); Hemoglobin 12.2 g/dL (13.5-17.5); IMMATURE GRAN ABSOLUTE AUTO 0.02 K/mm3 (0.00-0.10); IMMATURE GRAN PERCENT AUTO 0 % (0-1); LYMPHOCYTES ABSOLUTE AUTO 2.37 K/mm3 (0.84-5.20); LYMPHOCYTES PERCENT AUTO 31 % (21-46); MONOCYTES PERCENT AUTO 9 % (4-13); Mean Corpuscular HGB Conc 31.4 g/dL (31.5-36.5); Mean Corpuscular Volume 102 fL (80-100); Mean Platelet Volume 9.4 fL (9.1-12.4); NEUTROPHILS ABSOLUTE AUTO 4.25 K/mm3 (1.96-9.15); NEUTROPHILS PERCENT AUTO 56 % (41-73); Platelet Count 229 K/mm3 (150-400); RDW Coefficient Variation 16.9 % (11.7-14.2); RDW Standard Deviation 62.2 fL (35.1-46.3); Red Blood Cell Count 3.81 M/mm3 (4.30-5.90); White Blood Cell Count 7.63 K/mm3 (4.00-11.30)
[2023-05-23 22:56] LABS: Bilirubin, Total 0.3 mg/dL (0.1-1.0); Calcium, Blood 7.6 mg/dL (8.5-10.1); Creatinine, Blood 1.62 mg/dL (0.60-1.20); Potassium, Blood 3.8 mmol/L (3.5-5.5)
[2023-05-24 01:30] VITALS: BP 155/126
== END 2023-05-24 02:11 | disposition home or self-care (01) ==
LOC: ER 21:51
PROVIDERS: Student in an Organized Health Care Education/Training Program
DX: J44.1 Chronic obstructive pulmonary disease with (acute) exacerbation (principal); N17.9 Acute kidney failure, unspecified; R14.0 Abdominal distension (gaseous); I10 Essential (primary) hypertension; Z91.040 Latex allergy status; Z88.5 Allergy status to narcotic agent; Z79.52 Long term (current) use of systemic steroids; Z79.51 Long term (current) use of inhaled steroids; Z79.01 Long term (current) use of anticoagulants; Z79.899 Other long term (current) drug therapy; Z87.891 Personal history of nicotine dependence
CPT/HCPCS: 71046; 80053; 82803; 83880; 84484; 85025; 93005; 93010; 94640; 94664; 96374; 99284-25; J2930

== ENCOUNTER 2023-07-15 16:49 | Inpatient (IN) | payer MEDICARE ==
[~2023-07-15] VITALS: Ht 182.9 cm; Wt 160.2 kg
[2023-07-15 17:41] LABS: BASOPHILS ABSOLUTE AUTO 0.08 K/mm3 (0.00-0.23); BASOPHILS PERCENT AUTO 1 % (0-2); EOSINOPHILS ABSOLUTE AUTO 0.02 K/mm3 (0.00-0.68); EOSINOPHILS PERCENT AUTO 0 % (0-6); Hematocrit 42.2 % (37.0-53.0); Hemoglobin 14.7 g/dL (13.5-17.5); IMMATURE GRAN ABSOLUTE AUTO 0.08 K/mm3 (0.00-0.10); IMMATURE GRAN PERCENT AUTO 1 % (0-1); LYMPHOCYTES PERCENT AUTO 25 % (21-46); MONOCYTES ABSOLUTE AUTO 0.93 K/mm3 (0.16-1.47); MONOCYTES PERCENT AUTO 10 % (4-13); Mean Corpuscular HGB 35.6 pg (26.0-34.0); Mean Corpuscular HGB Conc 34.8 g/dL (31.5-36.5); Mean Corpuscular Volume 102 fL (80-100); NEUTROPHILS ABSOLUTE AUTO 5.64 K/mm3 (1.96-9.15); NEUTROPHILS PERCENT AUTO 62 % (41-73); NRBC ABSOLUTE 0.03 K/mm3 (0.00-0.02); NRBC Auto 0.3 /100 WBC (0.0-0.2); Platelet Count 285 K/mm3 (150-400); RDW Coefficient Variation 18.6 % (11.7-14.2); RDW Standard Deviation 69.2 fL (35.1-46.3); Red Blood Cell Count 4.13 M/mm3 (4.30-5.90); White Blood Cell Count 9.05 K/mm3 (4.00-11.30)
[2023-07-15 18:14] LABS: Albumin, Blood 3.5 g/dL (3.4-5.0); Albumin/Globulin Ratio 0.9 (0.8-1.8); Bilirubin, Total 0.6 mg/dL (0.1-1.0); Bun/Creatinine Ratio 14.6 (12.0-20.0); Calcium, Blood 8.7 mg/dL (8.5-10.1); Creatinine, Blood 0.89 mg/dL (0.60-1.20); Globulin, Blood 3.8 g/dL (2.2-4.0); Potassium, Blood 2.4 mmol/L (3.5-5.5); Total Protein, Blood 7.3 g/dL (6.4-8.2)
[2023-07-15] MEDS ORDERED: TORSE20 PO (18:16)
[2023-07-15] MEDS ORDERED: LAMO25 PO (18:17)
[2023-07-15] MEDS ORDERED: OXYACE7.5T PO (18:18)
[2023-07-15] MEDS ORDERED: FLUT1DIS2 BC (18:23)
[2023-07-15 22:22] LABS: Magnesium, Blood 2.8 mg/dL (1.6-2.4)
[2023-07-15 22:44] LABS: Potassium, Blood 2.4 mmol/L (3.5-5.5)
--- NOTE | 2023-07-15 22:47 | NUR ---
CALLED ED AND RECEIVED REPORT FROM CARRIE FRANKLIN.
--- NOTE | 2023-07-15 23:09 | NUR ---
PT'S HOME MEDS SENT TO PHARMACY PER ED NURSE.
--- NOTE | 2023-07-15 23:15 | NUR ---
PT ARRIVED TO 351 VIA GURNEY FROM THE ER. A/O X 4. ABLE TO TRANSFER SELF TO BED. PT CAN STAND AND MOVE INDEPENDENTLY. WILL CONTINUE TO PROVIDE CARE T/O SHIFT. CALL LT IN REACH.
[2023-07-15 23:18] VITALS: BP 195/115
[2023-07-16] VITALS (12 sets, daily range): BP systolic 125–186; BP diastolic 82–137
--- NOTE | 2023-07-16 02:23 | NUR ---
CPAP IN PLACE. CONT OXIMETER ON, SATS 93%. NS INFUSING AT 100 MLS/HR, FOLIC ACID INFUSING, KCL IVPB INFUSING. CALL LT IN REACH.
--- NOTE | 2023-07-16 04:15 | NUR ---
NOTIFIED DR THAT PT WAS UNABLE TO VOID AND REQUEST A PENA CATHETER. ORDER GIVEN. 16 COUDE PENA PLACED FOR RETENTION USING STERILE TECHNIQUE. IMMEDIATELY AFTER INSERTION GREAT RETURN OF YELLOW URINE FLOWED INTO BAG. PT STATES FEELING RELIEF. PT HAD TRIED TO VOID BEFORE CATHETER PLACEMENT AND HEART RATE BECAME ELEVATED. DR WAS NOTIFIED OF ELEVATED HEART RATE. ORDER TO DO AN EKG WAS RECEIVED WELL IV LOPRESSOR. PT IS ON TELE.
[2023-07-16 05:28] LABS: U Amphetamine Screen Not Detected; U Barbituate Screen Not Detected; U Benzodiazapine Screen DETECTED; U Methamphetamine Screen Not Detected; U Oxycodone Screen DETECTED
[2023-07-16 05:29] LABS: U Buprenorphine Screen Not Detected; U Cannabinoids Screen Not Detected; U Cocaine Screen Not Detected; U Methadone Screen Not Detected; U Opiates Screen Not Detected; U Phencyclidine Screen Not Detected; U Propoxyphene Screen Not Detected
--- NOTE | 2023-07-16 05:47 | NUR ---
AFTER GIVING 5 MG IV LOPRESSOR FOR HR SUSTAINED ABOVE 120 PT IS NOW 80'S SINUS RHYTHM.
[2023-07-16 06:13] LABS: BASOPHILS ABSOLUTE AUTO 0.02 K/mm3 (0.00-0.23); BASOPHILS PERCENT AUTO 0 % (0-2); EOSINOPHILS PERCENT AUTO 0 % (0-6); Hematocrit 40.4 % (37.0-53.0); Hemoglobin 13.6 g/dL (13.5-17.5); IMMATURE GRAN ABSOLUTE AUTO 0.04 K/mm3 (0.00-0.10); IMMATURE GRAN PERCENT AUTO 1 % (0-1); LYMPHOCYTES ABSOLUTE AUTO 0.63 K/mm3 (0.84-5.20); LYMPHOCYTES PERCENT AUTO 9 % (21-46); MONOCYTES ABSOLUTE AUTO 0.19 K/mm3 (0.16-1.47); MONOCYTES PERCENT AUTO 3 % (4-13); Mean Corpuscular HGB 34.9 pg (26.0-34.0); Mean Corpuscular HGB Conc 33.7 g/dL (31.5-36.5); Mean Corpuscular Volume 104 fL (80-100); Mean Platelet Volume 8.8 fL (9.1-12.4); NEUTROPHILS ABSOLUTE AUTO 5.79 K/mm3 (1.96-9.15); NEUTROPHILS PERCENT AUTO 87 % (41-73); Platelet Count 242 K/mm3 (150-400); RDW Coefficient Variation 18.7 % (11.7-14.2); RDW Standard Deviation 70.7 fL (35.1-46.3); White Blood Cell Count 6.67 K/mm3 (4.00-11.30)
[2023-07-16 06:27] LABS: Source, Urine Foley catheter
[2023-07-16 06:31] LABS: Appearance, Urine Clear (Clear); Bilirubin, Urine Neg (Neg); Blood, Urine Neg (Neg); Color, Urine Yellow (P-Yellow); Glucose Qualitative, Urine Neg (Neg); Ketones, Urine 4+ (Neg); Leukocyte Esterase, Urine Neg (Neg); Nitrite, Urine Neg (Neg); Protein, Urine 2+ (Neg); Urobilinogen, Urine NORM (Normal)
[2023-07-16 06:38] LABS: Albumin, Blood 3.2 g/dL (3.4-5.0); Albumin/Globulin Ratio 0.9 (0.8-1.8); Bilirubin, Total 0.8 mg/dL (0.1-1.0); Bun/Creatinine Ratio 17.3 (12.0-20.0); Calcium, Blood 8.3 mg/dL (8.5-10.1); Creatinine, Blood 0.87 mg/dL (0.60-1.20); Globulin, Blood 3.6 g/dL (2.2-4.0); Potassium, Blood 2.7 mmol/L (3.5-5.5); Total Protein, Blood 6.8 g/dL (6.4-8.2)
[2023-07-16 06:40] LABS: Bacteria Not Seen /hpf; Mucus Light (0-Heavy); Red Blood Cells, Urine 0-2 /hpf (0-2); Squamous Epithelial Cells Not Seen /hpf (Few); White Blood Cells, Urine 0-2 /hpf (0-5)
[2023-07-16 06:41] LABS: Transitional Epithelial Cells Rare /hpf (0-Rare)
[2023-07-16 07:20] LABS: Adenovirus Not Detected (NOT DETECT); Bordetella pertussis Not Detected (NOT DETECT); Chlamydophila pneumoniae Not Detected (NOT DETECT); Coronavirus 229E Not Detected (NOT DETECT); Coronavirus HKU1 Not Detected (NOT DETECT); Coronavirus NL63 Not Detected (NOT DETECT); Coronavirus OC43 Not Detected (NOT DETECT); Human Metapneumovirus Not Detected (NOT DETECT); Human Rhinovirus/Enterovirus Not Detected (NOT DETECT); Influenza A/2009-H1 Not Detected (NOT DETECT); Influenza A/H1 Not Detected (NOT DETECT); Influenza A/H3 Not Detected (NOT DETECT); Influenza B Not Detected (NOT DETECT); Mycoplasma pneumoniae Not Detected (NOT DETECT); Parainfluenza Virus 1 Not Detected (NOT DETECT); Parainfluenza Virus 2 Not Detected (NOT DETECT); Parainfluenza Virus 3 Not Detected (NOT DETECT); Parainfluenza Virus 4 Not Detected (NOT DETECT); Respiratory Syncytial Virus Not Detected (NOT DETECT); SARS-Cov-2 (COVID-19), BioFire Not Detected (NOT DETECT)
--- NOTE | 2023-07-16 10:53 | NUR ---
NOTE: NOTIFED BY TELE OF PT SUSTAINING 130'S-160'S, PROVIDER NOTIFIED. IV LOPRESSOR ADMINISTERED, PT'S HR NOW AT 87.
--- NOTE | 2023-07-16 11:50 | NUR ---
TRANSFER NOTE TRANSFERRED TO PCU 4, REPORT GIVEN AT THE BS TO PCU NURSE.
--- NOTE | 2023-07-16 12:20 | NUR ---
ASSUMPTION OF CARE PT ARRIVED TO UNIT VIA HOSPITAL BED AT APPROX 1145. BEDSIDE REPORT COMPLETED. AOX4, COOPERATIVE W/ CARE AND RECEPTIVE TO EDUCATION. ACUTE ETOH, DENIES VISUAL HALLUCINATIONS AT THIS TIME. BED ALARM ON. SEE WITHDRAWAL DOCUMENTATION. VSS. TELEMETRY SHOWING SR 70'S. DENIES CP/PRESSURE. CURRENTLY ON RM AIR, SATS >90%. BIPAP PRESENT AT BEDSIDE. PT AMBULATES W/ SBA FWW TO RESTROOM, REPORTS CONSTIPATION, PROVIDED PRUNE JUICE. WILL CONTINUE TO MONITOR. PENA CATHETER IN PLACE DRAINING TO GRAVITY, DRAINING CHELSEA URINE. IS ABLE TO INDEPENDENTLY CHANGE POSITION IN BED. CALL LIGHT IN REACH.
--- NOTE | 2023-07-16 17:25 | NUR ---
SHIFT SUMMARY VSS. ON RM AIR, SATS >90%. TELEMETRY SHOWING SR 80'S. NO REPORT OF CHEST PAIN/PRESSURE. AOX3-4. CIWA'S RANGING 4-18. CURRENTLY EXPERIENCING ANXIETY AND VISUAL HALLUCINATIONS. BED ALARM IN PLACE. ADMINISTERED TOTAL OF 4MG IV ATIVAN AND 50MG LIBRIUM. WILL CONTINUE TO MONITOR. PT REPORTED ONGOING CONSTIPATION, DESPITE ORAL SOFTENERS ADMINISTERED PRIOR TO TRANSFER TO UNIT. PRUNE JUICE PROVIDED W/ NO RELIEF. AT PT REQUEST, ADMINISTERED DULCALOX PER EMAR, MULTIPLE LOOSE BM'S SINCE. AMBULATING TO RESTROOM W/ SBA FWW. CATHETER IN PLACE DRAINING CHELSEA, RED-TINGED URINE. WILL REPORT TO ONCOMING RN.
[2023-07-16 22:17] LABS: Magnesium, Blood 2.6 mg/dL (1.6-2.4)
[2023-07-16 22:18] LABS: Calcium, Blood 8.5 mg/dL (8.5-10.1); Potassium, Blood 2.6 mmol/L (3.5-5.5)
[2023-07-17] VITALS (40 sets, daily range): BP systolic 117–197; BP diastolic 56–108
--- NOTE | 2023-07-17 00:11 | NUR ---
AOC: PATIENT ON ASSUMPTION WAS MINIMALLY WITHDRAWALING, THEN THE SHIFT PROGRESSED AROUND 1999 STARTED TO GO THROUGH INCREASED MENTATION, WITH UNSAFE BEHAVIORS, LEAVING THE BED, TRYING TO FALL OFF THE RAILING. PULLING AT LINES, CORDS, PENA. VISUALIZED PATIENT HAVING HALLUCINATIONS. PATIENT ALERT TO SELF AND PLACE( AT TIMES ), CHRONIC FOEY WAS PINK DUE TO HIM PULLING AT CATH, SITTING ON CATHETER, PULLING. IS STARTING TO MINIMALLY LIGHTENING TO CHELSEA. PATIENT SINCE THE BEGINNING OF THE SHIFT HAS RECIEVED 50 OF LIBRIUM AND 14mg OF ATIVAN, PATIENT I DO NOT BELIEVE WOULD BE CAPABLE OF ALERTLY SWALLOWING. PATIENT RUPA IS WEARING CPAP, SPO2 >94% BED ALARM ON PALLET SORTER HAS ALREADY INSPECTED PATIENT. POWERGLIDE WAS PLACED. PATIENT STILL PREFORMING UNSAFE BEHAVIORS SOON THE ATIVAN WEARS OFF.
--- NOTE | 2023-07-17 06:53 | NUR ---
EOS: PATIENT WITH MUCH IMPROVEMENT WITH ALMOST MAXED OUT ATIVAN FOR 24 HOUR, URINE CHELSEA LESSENING PINK. CURRENLTY ON CPAP OR BIPAP RT INVOLVED WITH SATURATING WELL. PATIENT WAS BATHED PLACED ON GREEN LIFT SHEET, AND WAS EDUCTED, AND ALMOST 1:1 FOR MULTIPLE HOURS THROUGH THE NIGHT, CURRENTLY RESTING WELL SATURATING WELL. VSS IMPROVING CLONIDINE .1mg PATCH PLACED CHARLINE. HYPERTENSIVE AND MODERATELY IMPROVED THIS AM.
--- NOTE | 2023-07-17 07:45 | NUR ---
PT TRANSFERRED TO ICU VIA BED D/T WORSENING WITHDRAWAL, BEDSIDE REPORT GIVEN TO ACCEPTING RN.
--- NOTE | 2023-07-17 08:23 | NUR ---
ASSUMED CARE PATIENT ARRIVED TO ICU FROM PCU @ 0740. PATIENT IS LAYING IN BED WITH EYES CLOSED ON ROOM AIR. SPO2 GREATER THAN 90%. PATIENT ANSWERS QUESTIONS WITH SLURRED SPEECH AND WHISPERING. NO FAMILY AT BEDSIDE. BELONGINGS PALCED IN CUPBOARD IN ROOM. CIWA 14 AT TIME OF ARRIVAL, PRECEDEX STARTED @ 0.3MCG/KG/HR. PADDING APPLIED TO BED SIDERAILS FOR SEIZRURE PRECAUTIONS AND SUCTION AT BEDSIDE. PENA PATENT AND DRAINING DARK ORANGE URINE TO GRAVITY. BEDSIDE REPORT RECEIVED FROM CARRIE JACINTO.
[2023-07-17 08:43] LABS: Albumin, Blood 2.8 g/dL (3.4-5.0); Albumin/Globulin Ratio 0.8 (0.8-1.8); Bilirubin, Total 0.8 mg/dL (0.1-1.0); Bun/Creatinine Ratio 31.1 (12.0-20.0); Calcium, Blood 7.3 mg/dL (8.5-10.1); Creatinine, Blood 0.64 mg/dL (0.60-1.20); Globulin, Blood 3.5 g/dL (2.2-4.0); Potassium, Blood 4.2 mmol/L (3.5-5.5); Total Protein, Blood 6.3 g/dL (6.4-8.2)
[2023-07-17 08:47] LABS: BASOPHILS ABSOLUTE AUTO 0.02 K/mm3 (0.00-0.23); BASOPHILS PERCENT AUTO 0 % (0-2); EOSINOPHILS PERCENT AUTO 0 % (0-6); Hematocrit 40.2 % (37.0-53.0); Hemoglobin 13.5 g/dL (13.5-17.5); IMMATURE GRAN ABSOLUTE AUTO 0.07 K/mm3 (0.00-0.10); IMMATURE GRAN PERCENT AUTO 1 % (0-1); LYMPHOCYTES ABSOLUTE AUTO 1.26 K/mm3 (0.84-5.20); LYMPHOCYTES PERCENT AUTO 8 % (21-46); MONOCYTES ABSOLUTE AUTO 0.91 K/mm3 (0.16-1.47); MONOCYTES PERCENT AUTO 6 % (4-13); Mean Corpuscular HGB 35.7 pg (26.0-34.0); Mean Corpuscular HGB Conc 33.6 g/dL (31.5-36.5); Mean Corpuscular Volume 106 fL (80-100); Mean Platelet Volume 10.1 fL (9.1-12.4); NEUTROPHILS ABSOLUTE AUTO 12.69 K/mm3 (1.96-9.15); NEUTROPHILS PERCENT AUTO 85 % (41-73); NRBC ABSOLUTE 0.02 K/mm3 (0.00-0.02); NRBC Auto 0.1 /100 WBC (0.0-0.2); Platelet Count 202 K/mm3 (150-400); RDW Coefficient Variation 18.9 % (11.7-14.2); RDW Standard Deviation 74.5 fL (35.1-46.3); Red Blood Cell Count 3.78 M/mm3 (4.30-5.90); White Blood Cell Count 14.95 K/mm3 (4.00-11.30)
--- NOTE | 2023-07-17 09:14 | NUR ---
PROLONGED QTC. PATIENT QTC ON MONITOR SHOWS PROLONGATION OVER 600. EKG COMPLETED AND SHOWED QTC OF 652. PRECEDEX PLACED ON SB AND CALL PLACED TO DR. FELIPE TO NOTIFY. DR. FELIPE TO COME SEE PATIENT AT BEDSIDE.
--- NOTE | 2023-07-17 13:14 | NUR ---
ATIVAN ORDERS CURRENT CIWA 15. ORDERS IN EMAR ARE FOR PO ATIVAN BUT PATIENT IS AN ASPIRATION RISK R/T AMS. CALL MADE TO DR. FELIPE FOR UPDATED ATIVAN ORDERS TO BE IV. TELEPHONE ORDERS RECEIVED.
--- NOTE | 2023-07-17 13:38 | NUR ---
EKG RECHECK EKG PERFORMED TO RECHECK QTC AFTER CALCIUM GLUCONATE INF. NEW QTC 554MS DOWN FROM 652MS THIS MORNING. DR. FELIPE NOTIFIED.
--- NOTE | 2023-07-17 18:48 | NUR ---
SHIFT SUMMARY PATIENT REMAINED OFF PRECEDEX FOR MOST OF THE SHIFT D/T PROLONGED QTC AND CIWA APPROPRIATE FOR ATIVAN. MEDICATED WITH ATIVAN PER EMAR. PATIENT HAD ONE RUN OF SVT BUT CONVERTED BACK TO SINUS RHYTHM. PERIODS OF IRREGULAR TACHY RHYTHM ON MONITOR. METOPROLOL 5MG IV PUSH Q5M X [address] DOS[address] BY [address] FELIPE IF NEEDED. BIPAP PLACED ON PATIENT AT 16/7 WITH SPO2 LOW TO MID 90'S. PENA PATENT AND DRAINING TO GRAVITY. NO OTHER CHANGES DURING SHIFT.
--- NOTE | 2023-07-17 21:03 | NUR ---
PATIENT RESTLESS AND MOANING, OPENS EYES TO VERBAL, MOANING WHEN ASKED QUESTIONS, BIPAP OFF AND ORAL CARE DONE PATIENT RESP 30'S AND CONTINUES TO BE RESTLESS. PRECEDEX 0.2 STARTED AND ORDER FOR IV PAIN CONTROL OBTAINED DUE TO ASPIRATION RISK.
[2023-07-18] VITALS (78 sets, daily range): BP systolic 107–178; BP diastolic 52–139
--- NOTE | 2023-07-18 01:29 | NUR ---
AFTER REPOSITIONING PATIENT VERBALIZED I NEED TO GET UP, SAYING YES TO PAIN. PT UNABLE TO EXPLAIN WHERE HE WAS HURTING. PATIENT RELAXING AFTER FENTANYL IV. PRECEDEX 0.2 CONTINUES
--- NOTE | 2023-07-18 06:19 | NUR ---
SUMMARY PATIENT MORE AWAKE NIGHT PROGRESSED. ABLE TO FOLLOW SIMPLE DIRECTIONS, BUT HAVING CONFUSED CONVERSATIONS. PRECEDEX 0.2 MCG INFUSING. FENTANYL GIVEN FOR PAIN AND ATIVAN GIVEN WHEN HAVING INCREASED AGITATION, AND ANXIETY. ATTEMPTING TO PROVIDE MINIMAL SEDATION DUE TO PROLONGED QT. HOLDING PO MEDICATIONS DUE TO ASPIRATION RISK. PENA REMAINS IN PLACE DRAINING DARK ORANGE URINE HAS LIGHTENED SLIGHTLY NIGHT PROGRESSED.
[2023-07-18 11:54] LABS: BASOPHILS ABSOLUTE AUTO 0.02 K/mm3 (0.00-0.23); BASOPHILS PERCENT AUTO 0 % (0-2); EOSINOPHILS ABSOLUTE AUTO 0.02 K/mm3 (0.00-0.68); EOSINOPHILS PERCENT AUTO 0 % (0-6); Hematocrit 40.1 % (37.0-53.0); Hemoglobin 13.7 g/dL (13.5-17.5); IMMATURE GRAN ABSOLUTE AUTO 0.14 K/mm3 (0.00-0.10); IMMATURE GRAN PERCENT AUTO 1 % (0-1); LYMPHOCYTES ABSOLUTE AUTO 1.52 K/mm3 (0.84-5.20); LYMPHOCYTES PERCENT AUTO 11 % (21-46); MONOCYTES ABSOLUTE AUTO 0.79 K/mm3 (0.16-1.47); MONOCYTES PERCENT AUTO 6 % (4-13); Mean Corpuscular HGB Conc 34.2 g/dL (31.5-36.5); Mean Corpuscular Volume 105 fL (80-100); Mean Platelet Volume 9.6 fL (9.1-12.4); NEUTROPHILS ABSOLUTE AUTO 11.91 K/mm3 (1.96-9.15); NEUTROPHILS PERCENT AUTO 83 % (41-73); Platelet Count 169 K/mm3 (150-400); RDW Coefficient Variation 18.8 % (11.7-14.2); RDW Standard Deviation 74.1 fL (35.1-46.3); Red Blood Cell Count 3.81 M/mm3 (4.30-5.90)
[2023-07-18 12:20] LABS: Albumin, Blood 2.6 g/dL (3.4-5.0); Albumin/Globulin Ratio 0.7 (0.8-1.8); Bilirubin, Total 1.3 mg/dL (0.1-1.0); Bun/Creatinine Ratio 16.8 (12.0-20.0); Calcium, Blood 7.4 mg/dL (8.5-10.1); Creatinine, Blood 0.84 mg/dL (0.60-1.20); Globulin, Blood 3.5 g/dL (2.2-4.0); Total Protein, Blood 6.1 g/dL (6.4-8.2)
[2023-07-18 15:57] LABS: Potassium, Blood 2.4 mmol/L (3.5-5.5)
--- NOTE | 2023-07-18 19:20 | NUR ---
SHIFT SUMMARY PATIENT PRECEDEX TITRATED UP TO 0.3MCG/KG/HR AND NS @ 100ML/HR. MEDICATED WITH ATIVAN FOR CIWA 14-15 PER EMAR. KCL 40MEQ INF NOW FOR POTASSIUM OF 2.4. ADDITIONAL 20MEQ ORDERED FOR A TOTAL OF 60MEQ TO BE GIVEN. PATIENT WAS ABLE TO CONVERSE WITH STAFF, BUT IS STILL CONFUSED AND NOT ORIENTED. BIPAP UTILIZED INTERMITTENTLY T/O DAY. PATIENT FREQUENTLY PULLING OFF MASK. PATIENT REMAINS NPO D/T ASP RISK. NO BM THIS SHIFT. 2L OUT OF PENA. NO OTHER CHANGES DURING SHIFT.
--- NOTE | 2023-07-18 21:08 | NUR ---
ASSESSMENT: PT CONFUSED AND ORIENTED ONLY TO SELF. SPEECH IS GARBLED WITH SOME SENSICAL WORDS, BUT PHRASES DON'T PERTAIN TO THE QUESTION ASKED. LS DIMINISHED T/O WITH BIOX 93-97% ON RA. KEPT PULLING AT BIPAP MASK; SO KEPT IT OFF FOR NOW, WILL TRY AGAIN LATER. HEART SOUNDS IRREGULAR WITH MONITOR SHOWING SR WITH PAC'S WITH HR 90-110. SKIN PINK, WARM AND DRY. PPP BILAT AND STRONG. BILAT RADIAL PULSES STRONG. 20G IV LFA FLUSHED AND S/L. POWERGLIDE CHARLINE WITH PRECEDEX AT 11.4CC/HR= 0.3MCG/KG/HR WITH A NS @ 10CC/HR. POWERGLIDE DRAWS BACK BLOOD. ABD R/D AND FIRM WITH HYPO BTX4. PENA DRAINING DARK YELLOW URINE.
[2023-07-19] VITALS (72 sets, daily range): BP systolic 134–206; BP diastolic 67–161
[2023-07-19 05:31] LABS: BASOPHILS ABSOLUTE AUTO 0.03 K/mm3 (0.00-0.23); BASOPHILS PERCENT AUTO 0 % (0-2); EOSINOPHILS ABSOLUTE AUTO 0.15 K/mm3 (0.00-0.68); EOSINOPHILS PERCENT AUTO 1 % (0-6); Hematocrit 39.5 % (37.0-53.0); Hemoglobin 13.3 g/dL (13.5-17.5); IMMATURE GRAN ABSOLUTE AUTO 0.08 K/mm3 (0.00-0.10); IMMATURE GRAN PERCENT AUTO 1 % (0-1); LYMPHOCYTES ABSOLUTE AUTO 1.15 K/mm3 (0.84-5.20); LYMPHOCYTES PERCENT AUTO 8 % (21-46); MONOCYTES ABSOLUTE AUTO 1.05 K/mm3 (0.16-1.47); MONOCYTES PERCENT AUTO 7 % (4-13); Mean Corpuscular HGB 36.2 pg (26.0-34.0); Mean Corpuscular HGB Conc 33.7 g/dL (31.5-36.5); Mean Corpuscular Volume 108 fL (80-100); Mean Platelet Volume 10.1 fL (9.1-12.4); NEUTROPHILS ABSOLUTE AUTO 12.42 K/mm3 (1.96-9.15); NEUTROPHILS PERCENT AUTO 84 % (41-73); Platelet Count 168 K/mm3 (150-400); RDW Coefficient Variation 18.3 % (11.7-14.2); RDW Standard Deviation 73.7 fL (35.1-46.3); Red Blood Cell Count 3.67 M/mm3 (4.30-5.90); White Blood Cell Count 14.88 K/mm3 (4.00-11.30)
--- NOTE | 2023-07-19 05:47 | NUR ---
SHIFT SUMMARY: PT HAS BEEN CONFUSED AND RESTLESS THORUGHOUT THE NIGHT. NOT REALLY TOLERATING THE BIPAP UNTIL THIS AM. HAS BEEN MEDICATED WITH ATIVAN TWICE THROUGHOUT THE NIGHT; PRECEDEX CONTINUES TO RUN. UNABLE TO TAKE PO MEDICATIONS SAFELY. EKG OBTAINED THIS AM SHOWS IMPROVED QT 388 AND QTC 466.
[2023-07-19 05:57] LABS: Albumin, Blood 2.4 g/dL (3.4-5.0); Albumin/Globulin Ratio 0.6 (0.8-1.8); Bilirubin, Total 1.2 mg/dL (0.1-1.0); Bun/Creatinine Ratio 17.6 (12.0-20.0); Calcium, Blood 7.1 mg/dL (8.5-10.1); Creatinine, Blood 0.74 mg/dL (0.60-1.20); Globulin, Blood 3.9 g/dL (2.2-4.0); Potassium, Blood 2.7 mmol/L (3.5-5.5); Total Protein, Blood 6.3 g/dL (6.4-8.2)
--- NOTE | 2023-07-19 07:35 | NUR ---
TACHYCARDIA PATIENT WAS LYING IN BED @ 0719 WHEN HE CONVERTED INTO A POSSIBLE SVT RHYTHM. RATE 160'S AT HIGHEST, QRS 0.07. PATIENT WOULD NOT VERBALLY RESPOND TO STAFF. SPO2 MAINTAINED. PATIENT BED SAT UPRIGHT AND BIPAP REMOVED. PATIENT WAS ORALLY SUCTIONED BY ANOTHER NURSE AND WAS CONVERTED BACK TO SINUS RHYTHM WITH RATE 90'S. DR. FELIPE NOTIFIED OF EVENT AND MORNING LABS SHOWING POTASSIUM OF 2.7, CALCIUM 7.1, AND ALBUMIN OF 2.4. ORDERS RECEIVED FOR TOOL SPECIALIST CONSULT, MAG BLOOD CHECK. AWAITING FOR CALCIUM AND POTASSIUM REPLACEMENTS.
--- NOTE | 2023-07-19 18:27 | NUR ---
SHIFT SUMMARY NO ACUTE EVENTS THIS SHIFT AFTER MORNING EPISODE OF SVT. PATIENT RECEIVED A TOTAL OF 80 MEQ POTASSIUM IV, 1G CALCIUM GLUCONATE IV, AND 2G MAG SULFATE IV. REPEAT POTASSIUM LAB DRAWN, BUT NOT RESULTED YET. PRECEDEX TITRATED OFF. PATIENT PASSED BEDSIDE SWALLOW EVAL AND IS NOW ABLE TO TAKE PO MEDS. MEDICATED WITH ATIVAN, LIBRIUM, AND OXYCODONE TODAY PER EMAR. PATIENT IS A&O X 3. INTERMITTENTLY CONFUSED ON PREVIOUS CONVERSATIONS HAD, BUT KNOWS PLACE, YEAR, AND SITUATION. REMAINS ON 2LPM VIA NC T/O SHIFT WITH SPO2 HIGH 90'S AND NO APNEIC OR OBSTRUCTIVE EPISODES. PENA PATENT AND DRAINED OVER 1600ML URINE. NO BM THIS SHIFT. ECHO COMPLETED.
--- NOTE | 2023-07-19 21:25 | NUR ---
SHIFT ASSESSMENT: PT A&O X4. HAS SOME CONFUSED CONVERSATION, BUT HE'S APPROPRIATE WITH CARE. C/O PAIN IN SHOULDERS AND BACK; STATES HE'S USED TO WALKING AND NOT BEING IN A BED ALL DAY. LS CLEAR WITH WHEEZES IN UPPER LOBES, BUT DIMINISHED IN BASES WITH BIOX 98% ON 2L N/C. KEEPS C/O SOB BUT STATES HE'S NOT READY TO WEAR HIS BIPAP. HEART SOUNDS IRREGULAR WITH MONIOTR SHOWING SR WITH PAC'S WITH HR 80-120'S. PPP BILAT AND STRONG. BILAT RADIAL PULSES STRONG. POWERGLIDE CHARLINE WITH NS@ 10CC/HR. ABD R/D AND FIRM WITH HYPO BT X4. PENA DRAINING CHELSEA URINE.
[2023-07-20] VITALS (25 sets, daily range): BP systolic 124–188; BP diastolic 64–133
[2023-07-20 04:59] LABS: BASOPHILS ABSOLUTE AUTO 0.02 K/mm3 (0.00-0.23); BASOPHILS PERCENT AUTO 0 % (0-2); EOSINOPHILS ABSOLUTE AUTO 0.17 K/mm3 (0.00-0.68); EOSINOPHILS PERCENT AUTO 1 % (0-6); Hematocrit 39.9 % (37.0-53.0); Hemoglobin 13.6 g/dL (13.5-17.5); IMMATURE GRAN ABSOLUTE AUTO 0.22 K/mm3 (0.00-0.10); IMMATURE GRAN PERCENT AUTO 2 % (0-1); LYMPHOCYTES ABSOLUTE AUTO 1.16 K/mm3 (0.84-5.20); LYMPHOCYTES PERCENT AUTO 8 % (21-46); MONOCYTES ABSOLUTE AUTO 1.56 K/mm3 (0.16-1.47); MONOCYTES PERCENT AUTO 11 % (4-13); Mean Corpuscular HGB 36.2 pg (26.0-34.0); Mean Corpuscular HGB Conc 34.1 g/dL (31.5-36.5); Mean Corpuscular Volume 106 fL (80-100); Mean Platelet Volume 9.7 fL (9.1-12.4); NEUTROPHILS ABSOLUTE AUTO 10.78 K/mm3 (1.96-9.15); NEUTROPHILS PERCENT AUTO 78 % (41-73); Platelet Count 217 K/mm3 (150-400); RDW Coefficient Variation 18.5 % (11.7-14.2); RDW Standard Deviation 72.9 fL (35.1-46.3); Red Blood Cell Count 3.76 M/mm3 (4.30-5.90); White Blood Cell Count 13.91 K/mm3 (4.00-11.30)
[2023-07-20 05:21] LABS: Albumin, Blood 2.3 g/dL (3.4-5.0); Albumin/Globulin Ratio 0.6 (0.8-1.8); Bun/Creatinine Ratio 18.1 (12.0-20.0); Calcium, Blood 7.6 mg/dL (8.5-10.1); Creatinine, Blood 0.72 mg/dL (0.60-1.20); Globulin, Blood 4.1 g/dL (2.2-4.0); Potassium, Blood 2.9 mmol/L (3.5-5.5); Total Protein, Blood 6.4 g/dL (6.4-8.2)
--- NOTE | 2023-07-20 05:33 | NUR ---
SHIFT SUMMARY: PT HAS BEEN MORE ALERT AND TALKATIVE THRU THE NIGHT WITH BOUTS OF CONFUSED TALK. MULTIPLE ATTEMPTS TO PUT BIPAP ON, BUT PT KEEPS TAKING IT OFF. PT'S RHYTHM IS SO IRREGULAR THRU THE NIGHT; EKG OBTAINED AND SHOWING SR WITH PAC'S AND PVC'S. CALLED MD WITH ORDER TO GIVE CARDIZEM IVP AND TO START THE GTT. CARDIZEM GTT AT 20MG/HR. K+ LOW AGAIN THIS AM; ORDER OBTAINED FOR MORE K+ IV.
--- NOTE | 2023-07-20 16:33 | NUR ---
SHIFT SUMMARY PT INITIALLY AWAKE, AND ALERT THIS MORNING. PT WAS ABLE TO ANSWER SIMPLE QUESTIONS, BUT FORGETFUL. PT CONTINUED TO BECOME INCREASINGLY CONFUSED AND NOT ABLE TO BE REDIRECTABLE. PT MED WITH ATIVAN AND LIBRIUM PER EMAR. PRECEDEX RESTARTED THIS SHIFT AND TITRATED UP TO 0.5 MCG/KG/HR AT THIS TIME. PT IS RESTING COMFORTABLY AT THIS TIME. NS INFUSING AT 100 ML/HR. PT ABLE TO TAKE PO INTAKE THIS MORNING WHEN AWAKE. VITAL SIGNS STABLE AT THIS TIME. CARDIZEM GTT TIRATED OFF THIS AFTERNOON. PENA REMAINS IN PLACE WITH DARK YELLOW OUTPUT NOTED. PT SPOUSE UPDATED VIA PHONE THIS SHIFT. WILL CONTINUE TO MONITOR AND REPORT OFF TO ONCOMING RN.
--- NOTE | 2023-07-20 19:15 | NUR ---
ASSUMED CARE OF PT AT 1900. VITALS WNL AT THIS TIME. PRECEDEX AT 0.5 MCG. PT SLEEPING IN BED. SEE FULL ASSESSMENT FOR FURTHER INFORMATION.
--- NOTE | 2023-07-20 20:00 | NUR ---
PRECEDEX PUT ON STAND BY AT THIS TIME. PT CAN NOT WAKE UP ENOUGH TO SWALLOW PILLS. WILL MONITOR AND TRY NIGHT MEDICATIONS WHEN PT IS MORE AWAKE.
--- NOTE | 2023-07-20 23:16 | NUR ---
PT ON CPAP AT THIS TIME.
[2023-07-21] VITALS (22 sets, daily range): BP systolic 125–161; BP diastolic 60–123
[2023-07-21 03:38] LABS: BASOPHILS ABSOLUTE AUTO 0.03 K/mm3 (0.00-0.23); BASOPHILS PERCENT AUTO 0 % (0-2); EOSINOPHILS ABSOLUTE AUTO 0.17 K/mm3 (0.00-0.68); EOSINOPHILS PERCENT AUTO 2 % (0-6); Hematocrit 36.8 % (37.0-53.0); Hemoglobin 12.2 g/dL (13.5-17.5); IMMATURE GRAN PERCENT AUTO 1 % (0-1); LYMPHOCYTES ABSOLUTE AUTO 1.03 K/mm3 (0.84-5.20); LYMPHOCYTES PERCENT AUTO 10 % (21-46); MONOCYTES ABSOLUTE AUTO 1.38 K/mm3 (0.16-1.47); MONOCYTES PERCENT AUTO 14 % (4-13); Mean Corpuscular HGB 35.9 pg (26.0-34.0); Mean Corpuscular HGB Conc 33.2 g/dL (31.5-36.5); Mean Corpuscular Volume 108 fL (80-100); Mean Platelet Volume 10.2 fL (9.1-12.4); NEUTROPHILS ABSOLUTE AUTO 7.27 K/mm3 (1.96-9.15); NEUTROPHILS PERCENT AUTO 73 % (41-73); Platelet Count 216 K/mm3 (150-400); RDW Coefficient Variation 18.3 % (11.7-14.2); RDW Standard Deviation 73.7 fL (35.1-46.3); White Blood Cell Count 9.98 K/mm3 (4.00-11.30)
[2023-07-21 04:21] LABS: Albumin, Blood 2.1 g/dL (3.4-5.0); Albumin/Globulin Ratio 0.6 (0.8-1.8); Bilirubin, Total 0.5 mg/dL (0.1-1.0); Bun/Creatinine Ratio 20.8 (12.0-20.0); Calcium, Blood 7.8 mg/dL (8.5-10.1); Creatinine, Blood 0.77 mg/dL (0.60-1.20); Globulin, Blood 3.8 g/dL (2.2-4.0); Potassium, Blood 3.5 mmol/L (3.5-5.5); Total Protein, Blood 5.9 g/dL (6.4-8.2)
--- NOTE | 2023-07-21 05:02 | NUR ---
PT HAS BEEN OFF OF PRECEDEX SINCE 423 THIS MORNING. PT IS WATCHING TELEVISION AND USING CALL LIGHT APPROPRIATELY. REQUESTED BREATHING TREATMENT. RT CALLED INTO ROOM. PT BOOSTED IN BED AND GIVEN SMALL SIPS OF WATER. ANSWERING QUESTIONS APPROPRIATELY. A/O X4 AT THIS TIME.
--- NOTE | 2023-07-21 05:29 | NUR ---
END OF SHIFT SUMMARY NEURO- PT A/O X4 AT THIS TIME. CPAP WORN MOST OF THIS SHIFT UNTIL PRECEDEX WAS PUT ON SB AT 0430. CARDIAC- HR 60-80'S THROUGHOUT SHIFT. BP STABLE THROUGHOUT SHIFT WELL. AFTER PRECEDEX PUT ON SB BOTH BP AND HR INCREASED SLIGHTLY. RESP-PT NOT ON OXYGEN SUPPLEMENT AT THIS TIME AND IS HOLDING SPO2 >95%. GI,- PENA DRAINING TO GRAVITY WITH SMALL URINE OUTPUT. (SEE I/O CHARTING) IV- NS AT 100 MLS/HR TO PG IN LEFT UPPER ARM. WILL CONTINUE TO MONITOR UNTIL REPORT GIVEN TO AM RN.
--- NOTE | 2023-07-21 06:03 | NUR ---
PT REQUESTING RT FOR BREATHING TREATMENT AGAIN. PT INFORMED Q4 RT PRN TREATMENTS. PT PUT ON 2 LPM NC FOR COMFORT.
--- NOTE | 2023-07-21 15:46 | NUR ---
SHIFT SUMMARY PT HAS REMAINED CONFUSED AND FORGETFUL THROUGHOUT THE DAY. PT IS ABLE TO ANSWER SOME QUESTIONS APPROPRIATELY, BUT SPEECH IS MOSTLY NONSENSICAL. PT SEDATED WITH PRECEDEX AT 0.5 MCG/KG/HR. PT MED WITH ATIVAN AND LIBRIUM PER EMAR. NS INFUSING AT 100 ML/HR. PT ON 2L O2 NC. PT WITH SPO2 >90% ON ROOM AIR, BUT PT REPORTS SOB AND INCREASED WORK OF BREATHING ON RA. VITAL SIGNS STABLE. PENA REMAINS IN PLACE WITH CLOUDY YELLOW URINE OUTPUT NOTED. PT ABLE TO SHIFT SELF IN BED WITH MINIMAL ASSISTANCE. PT SPOUSE UPDATED VIA PHONE. WILL CONTINUE TO MONITOR AND REPORT OFF TO ONCOMING RN.
--- NOTE | 2023-07-21 19:00 | NUR ---
ASSUMED CARE OF PT AT 1900 PT AWAKE IN ROOM TALKING TO NO ONE. PT CONFUSED DURING SHIFT REPORT. VITALS WNL FOR BASELINE AT HOME. 2 LPM NC FOR COMFORT. NS AT 100 MLS/HR PRECEDEX 0.5 MCG SEE FULL ASSESSMENT FOR FURTHER INFORMATION.
--- NOTE | 2023-07-21 20:45 | NUR ---
PT NOT COMPLIANT WITH CPAP MACHINE AND MASK AT THIS TIME.
[2023-07-22] VITALS (26 sets, daily range): BP systolic 143–203; BP diastolic 57–162
[2023-07-22 03:38] LABS: Hematocrit 37.5 % (37.0-53.0); Hemoglobin 12.6 g/dL (13.5-17.5); Mean Corpuscular HGB 36.3 pg (26.0-34.0); Mean Corpuscular HGB Conc 33.6 g/dL (31.5-36.5); Mean Corpuscular Volume 108 fL (80-100); Mean Platelet Volume 10.1 fL (9.1-12.4); Platelet Count 255 K/mm3 (150-400); RDW Coefficient Variation 18.6 % (11.7-14.2); RDW Standard Deviation 74.9 fL (35.1-46.3); Red Blood Cell Count 3.47 M/mm3 (4.30-5.90); White Blood Cell Count 11.14 K/mm3 (4.00-11.30)
[2023-07-22 04:10] LABS: Albumin, Blood 2.1 g/dL (3.4-5.0); Albumin/Globulin Ratio 0.5 (0.8-1.8); Bilirubin, Total 0.6 mg/dL (0.1-1.0); Bun/Creatinine Ratio 18.6 (12.0-20.0); Creatinine, Blood 0.75 mg/dL (0.60-1.20); Globulin, Blood 4.2 g/dL (2.2-4.0); Potassium, Blood 3.6 mmol/L (3.5-5.5); Total Protein, Blood 6.3 g/dL (6.4-8.2)
[2023-07-22 04:28] LABS: BAND PERCENT MAN 14 % (0-8); BASOPHILS PERCENT MAN 0 % (0-2); EOSINOPHILS ABSOLUTE MAN 0.44 K/mm3 (0.00-0.68); EOSINOPHILS PERCENT MAN 4 % (0-6); LYMPHOCYTES ABSOLUTE MAN 0.55 K/mm3 (0.84-5.20); LYMPHOCYTES PERCENT MAN 5 % (21-46); MONOCYTES ABSOLUTE MAN 1.22 K/mm3 (0.16-1.47); MONOCYTES PERCENT MAN 11 % (4-13); NEUTROPHILS ABSOLUTE MAN 8.91 K/mm3 (1.96-9.15); SEG NEUTROPHILS PERCENT MAN 66 % (41-73); TOTAL CELLS COUNTED 100
--- NOTE | 2023-07-22 06:18 | NUR ---
END OF SHIFT SUMMARY PT RESTED MOST OF THE NIGHT ON PRECEDEX 0.5 MCG. PT WAKING UP THIS AM AND PRECEDEX ON STANDBY SINCE 0500 THIS AM. PT IS FOLLOWING COMMANDS AND HAS ASKED FOR BLANKETS HE IS FEELING COLD. CPAP WORN FOR THE LAST 5 HOURS. NS AT 100 MLS/HR. PRECEDEX SB. PENA CATHETER DC'S D/T PT PULLED TUBING OUT. PT HAS NOT ASKED TO USE URINAL. 2 BED CHANGES DONE THIS SHIFT WITH ONLY URINE SATURATION. NO BM THIS SHIFT. PLAN THIS AM IS TO HAVE PT OFF OF PRECEDEX AND BACK TO BASELINE. WILL CONTINUE TO MONITOR UNTIL DAY RN IS GIVEN REPORT.
--- NOTE | 2023-07-22 07:28 | NUR ---
ASSUMED CARE ASSUMED CARE OF THIS PATIENT AT 0715. PATIENT IS LYING IN BED WITH BIPAP IN PLACE 16/7 FIO2 21%. PRECEDEX OFF AND NS @ 100ML/HR INF. NO FAMILY OR VISITORS AT BEDSIDE. ATTENDS IN PLACE WITH NO PENA. MONITOR SHOWS SR WITH PAC'S AND PVC'S, RATE 80'S-90'S. SPO2 MID 90'S. REPORT RECEIVED FROM CARRIE LOMELI.
--- NOTE | 2023-07-22 09:51 | NUR ---
HTN PATIENT BP 196/118 MAP 142 MEDICATED WITH HYDRALAZINE 10MG IV AND BIPAP PLACED BACK ON PATIENT WHILE PATIENT IS ASLEEP.
--- NOTE | 2023-07-22 17:22 | NUR ---
SHIFT SUMMARY PATIENT MAINOR REMAINED OFF T/O SHIFT. MEDICATED WITH ATIVAN AND LIBRIUM PER EMAR FOR ETOH WITHDRAWAL. HIGHEST CIWA OF 9 THIS SHIFT. INTERMITTENT VISUAL HALLUCINATIONS AND BOUTS OF CONFUSION, BUT OVERALL MOSTLY ORIENTED KNOWING PLACE AND YEAR. PENA REMAINS OUT TO PREVENT INFECTION WITH ATTENDS IN PLACE. ONE INCONTINENT VOID THIS SHIFT. PATIENT WAS ABLE TO TAKE PO MEDS AND NUTRITION T/O SHIFT. NO BM, BOWEL CARE ADMINISTERED PER EMAR. MEDICATED WITH HYDRALAZINE FOR HTN TWICE PER EMAR. NO OTHER CHANGES THIS SHIFT.
--- NOTE | 2023-07-22 21:30 | NUR ---
SHIFT ASSESSMENT: PT A&O X4; STATES HE'S IN [place], THEN CHNAGES HIS STORY AND STATES HE'S IN [place] AND THAT HE WAS JUST JOKING. HARD TO TELL IF HE'S JOKING OR COVERING UP THAT HE'S A BIT CONFUSED STILL. LS CLEAR WITH EXP WHEEZES T/O WITH BIOX 94% ON RA. RT AT BEDSIDE TO GIVE A NEB TX. ORAL CARE DONE, THEN I PLACED BIPAP IN PT. HEART SOUNDS IRREGULAR WITH MONIOTR SHOWING SR WITH PAC'S WITH HR 90-120. PPP BILAT AND STRONG. BILAT RADIAL PULSES STRONG. POWERGLIDE CHARLINE WITH NS @ 100CC/HR. ABD R/D AND VERY FIRM. HYPO BTX4. VOIDS PER ATTNEDS; EACH VOID HE SOAKS THE ATTENDS AND THE LINENS. LINENS CHANGED.
[2023-07-23] VITALS (22 sets, daily range): BP systolic 126–184; BP diastolic 67–106
[2023-07-23 04:17] LABS: Hemoglobin 12.2 g/dL (13.5-17.5); Mean Corpuscular HGB 35.5 pg (26.0-34.0); Mean Corpuscular Volume 108 fL (80-100); Mean Platelet Volume 10.2 fL (9.1-12.4); Platelet Count 323 K/mm3 (150-400); RDW Coefficient Variation 18.7 % (11.7-14.2); RDW Standard Deviation 75.5 fL (35.1-46.3); Red Blood Cell Count 3.44 M/mm3 (4.30-5.90)
[2023-07-23 04:35] LABS: Albumin, Blood 1.8 g/dL (3.4-5.0); Albumin/Globulin Ratio 0.4 (0.8-1.8); Bilirubin, Total 0.6 mg/dL (0.1-1.0); Bun/Creatinine Ratio 14.8 (12.0-20.0); Creatinine, Blood 0.74 mg/dL (0.60-1.20); Globulin, Blood 4.1 g/dL (2.2-4.0); Potassium, Blood 3.3 mmol/L (3.5-5.5); Total Protein, Blood 5.9 g/dL (6.4-8.2)
[2023-07-23 04:47] LABS: BAND PERCENT MAN 13 % (0-8); BASOPHILS PERCENT MAN 0 % (0-2); EOSINOPHILS ABSOLUTE MAN 0.15 K/mm3 (0.00-0.68); EOSINOPHILS PERCENT MAN 1 % (0-6); LYMPHOCYTES % ATYPICAL MANUAL 1 % (0-0); LYMPHOCYTES ABSOLUTE MAN 1.37 K/mm3 (0.84-5.20); LYMPHOCYTES PERCENT MAN 8 % (21-46); MONOCYTES ABSOLUTE MAN 1.53 K/mm3 (0.16-1.47); MONOCYTES PERCENT MAN 10 % (4-13); MYELOCYTE ABSOLUTE MAN 0.15 K/mm3 (0.00-0.00); MYELOCYTE PERCENT MAN 1 % (0-0); NEUTROPHILS ABSOLUTE MAN 12.08 K/mm3 (1.96-9.15); SEG NEUTROPHILS PERCENT MAN 66 % (41-73); TOTAL CELLS COUNTED 100
--- NOTE | 2023-07-23 06:11 | NUR ---
SHIFT SUMMARY: PT SLEPT WELL ALL NIGHT; WAS MEDICATED ONCE WITH ATIVAN AND LIBRIUM. WORE BIPAP ALL NIGHT WITHOUT ANY ISSUES. ATTENDS CHANGED THROUGHOUT THE NIGHT.
--- NOTE | 2023-07-23 13:20 | NUR ---
TRANSFER NOTE- PT TRANSFERED TO MEDICAL FLOOR FROM ICU. PER REPORT THE PT HAS HAD NEGATIVE CIWAS T/O THE DAY. PT ARRIVED ON MEDICAL FLOOR ON CPAP, RT AT THE BEDSIDE SETTING UP THE BIOX AND CPAP MACHINE IN THE ROOM. PT UNRESPONSIVE TO STAFF ATTEMPTS TO COMMUICATE. PER REPORT THIS IS NOT ABNORMAL BEHAVIOR FOR THIS PT. VITALS HOW A VEWS SCORE OF 4 RESP RATE 32 ON CPAP, SATS GREATER THAN 90% TELE SINUS WITH PAC'S. NO S&S OF DISTRESS NOTED JUST A HIGHER RATE OF SHALLOW BREATHS.
--- NOTE | 2023-07-23 14:26 | NUR ---
ATTEMPTED TO MEDICATE THE PT- PT HAS ORDER FOR SPIRONOLACTONE HOWEVER HE OPENS ONE EYE WHEN STERNAL RUB IS PERFORMED, UNABLE TO ROUSE FURTHER. UNABLE TO MEDICATE D/T ASPIRATION RISK.
--- NOTE | 2023-07-23 14:53 | NUR ---
CALLED DR LEES- PT REMAINS UNRESPONSIVE TO STAFF VOICES. STERNAL RUB GARNERS A LEFT EYE CRACKED OPEN BUT NO APPEARANCE OF UNDERSTANDING. CALED DR LEES AND SPOKE TO HER ABOUT THE PT AND THE ELEVATED RESP RATE OF 32 ON LAST VITALS. RECIEVED ORDER FOR ABG NOW.
[2023-07-23 15:12] LABS: PCO2 Arterial 39.7 mmHg (35-45); PO2 Arterial 81.7 mmHg (80-100); pH Blood Arterial 7.39 (7.35-7.45)
--- NOTE | 2023-07-23 15:58 | NUR ---
CALLED DR LEES- WAITING FOR A CALL BACK- ABG RESULTS CAME BACK WITH NO ABNORMAL VALUES. PT DIDN'T FLINCH AT ALL WHEN ABG WAS PERFORMED. PT DID WAKE SEVERAL MINUTES AFTER THE ABG WAS PERFORMED AND MUMBLE CRY INTO HIS CPAP MASK, ATTEMPTED TO TAKE THE MASK OFF TO ALLOW THE PT TO COMMUNICATE, THIS DID NOT MAKE HIS SPEECH SOUND ANY MORE CLEAR THOUGH. AWAITING A CALL BACK FROM DR LEES. PT DID AGREE THAT HE HUNGRY BUT HE FELL BACK ASLEEP BEFORE STAFF COULD ATEMPT TO GIVE HIM FOOD. FOOD HELD AT THIS TIME FOR LETHARGYTO PREVENT ASPIRATION.
--- NOTE | 2023-07-23 18:18 | NUR ---
SHIFT SUMMARY- PT HAS BEEN MUMBLING INCOHERENT WORDS AND SOUNDS, STAFF ARE NOT ABLE TO UNDERSTAND HIM AT THIS TIME. MD AWARE PT HAS NOT BEEN ABLE TO EAT DUE TO BEING TOO TIRED WITH SLURRED SPEECH. MD ORDERED IVF FOR THE PT TO MAINTAIN HYDRATION WHILE HE IS NPO. PT HAD A SMALL RUN OF ELEVATED HR THIS EVENING, NO S&S OF DISTRESS, VSS. VS HAVE BEEN DONE Q2 THE PT WAS HAVING VEWS SCORE OF 4. PT HAS AN ELEVATED RESP RATE IN THE 30'S. MD IS AWARE, THIS IS NOT NEW, SEE VITALS FOR TREND. PT IN BED, BIPAP IN PLACE WITH 2L BLEED IN, ON CONT BIOX AND TELE NSR WITH PACS IN THE 80'S. NO CURRENT S&S OF DISTRESS, WILL PASS ON TO NIGHT RN IN BEDSIDE REPORT.
[2023-07-24] VITALS (13 sets, daily range): BP systolic 135–173; BP diastolic 77–104
--- NOTE | 2023-07-24 04:46 | NUR ---
SHIFT SUMMARY PT DROWSY AT TIMES, AWAKENS TO VERBAL STIMULI BUT APPEARS CONFUSED. CURRENTLY WEARING BIPAP AND SLEEPING OFF AND ON MUCH OF THE NIGHT. CONT O2 MONITORING, SATS ABOVE 92% AND PT TOLERATING WELL. INCONTINENT OF URINE WITH ATTENDS IN PLACE. POWERGLIDE IN CHARLINE. TELEMETRY: SR W/PAC'S @96. LR INFUSING @100 ML/HR. REPLACED CLONIDINE PATCH ON LEFT SHOULDER. CALL LIGHT KEPT WITHIN REACH WITH BED ALARM IN PLACE. WILL CONTINUE TO MONITOR UNTIL END OF SHIFT.
[2023-07-24 06:05] LABS: BASOPHILS ABSOLUTE AUTO 0.05 K/mm3 (0.00-0.23); BASOPHILS PERCENT AUTO 0 % (0-2); Hematocrit 38.3 % (37.0-53.0); Hemoglobin 12.8 g/dL (13.5-17.5); LYMPHOCYTES ABSOLUTE AUTO 1.48 K/mm3 (0.84-5.20); LYMPHOCYTES PERCENT AUTO 8 % (21-46); MONOCYTES ABSOLUTE AUTO 1.54 K/mm3 (0.16-1.47); MONOCYTES PERCENT AUTO 9 % (4-13); Mean Corpuscular HGB 35.7 pg (26.0-34.0); Mean Corpuscular HGB Conc 33.4 g/dL (31.5-36.5); Mean Corpuscular Volume 107 fL (80-100); Mean Platelet Volume 10.5 fL (9.1-12.4); Platelet Count 388 K/mm3 (150-400); RDW Coefficient Variation 18.1 % (11.7-14.2); RDW Standard Deviation 73.1 fL (35.1-46.3); Red Blood Cell Count 3.59 M/mm3 (4.30-5.90); White Blood Cell Count 17.58 K/mm3 (4.00-11.30)
[2023-07-24 06:11] LABS: EOSINOPHILS ABSOLUTE AUTO 0.13 K/mm3 (0.00-0.68); EOSINOPHILS PERCENT AUTO 1 % (0-6); IMMATURE GRAN ABSOLUTE AUTO 0.17 K/mm3 (0.00-0.10); IMMATURE GRAN PERCENT AUTO 1 % (0-1); NEUTROPHILS ABSOLUTE AUTO 14.21 K/mm3 (1.96-9.15); NEUTROPHILS PERCENT AUTO 81 % (41-73)
[2023-07-24 06:31] LABS: Albumin, Blood 1.8 g/dL (3.4-5.0); Albumin/Globulin Ratio 0.4 (0.8-1.8); Bilirubin, Total 0.5 mg/dL (0.1-1.0); Bun/Creatinine Ratio 18.2 (12.0-20.0); Calcium, Blood 8.3 mg/dL (8.5-10.1); Creatinine, Blood 0.72 mg/dL (0.60-1.20); Globulin, Blood 4.5 g/dL (2.2-4.0); Potassium, Blood 3.5 mmol/L (3.5-5.5); Total Protein, Blood 6.3 g/dL (6.4-8.2)
[2023-07-24 06:32] LABS: BAND PERCENT MAN 2 % (0-8); BASOPHILS PERCENT MAN 0 % (0-2); EOSINOPHILS ABSOLUTE MAN 0.35 K/mm3 (0.00-0.68); EOSINOPHILS PERCENT MAN 2 % (0-6); LYMPHOCYTES ABSOLUTE MAN 1.05 K/mm3 (0.84-5.20); LYMPHOCYTES PERCENT MAN 6 % (21-46); MONOCYTES ABSOLUTE MAN 0.87 K/mm3 (0.16-1.47); MONOCYTES PERCENT MAN 5 % (4-13); NEUTROPHILS ABSOLUTE MAN 15.29 K/mm3 (1.96-9.15); SEG NEUTROPHILS PERCENT MAN 85 % (41-73); TOTAL CELLS COUNTED 100
--- NOTE | 2023-07-24 07:52 | NUR ---
ASSUMED CARE OF PT- REPORT RECIEVED FROM NIGHT RN, PT HAS NOT BEEN AWAKE T/O THE NIGHT. HE APPEARED TO WAKE FOR A FEW MINUTES, AT WHICH TIME HE REQUESTED WATER, HE WAS ASSISTED TO SIT UP AND DRINK A SINGLE SIP OF WATER. PER REPORT HE WENT BACK TO SLEEP DIRECTLY AFTER THAT. PT LAYING IN BED, BIPAP IN PLACE AT THE TIME OF BEDSIDE REPORT. ON ASSESSMENT NOTED LUNG SOUNDS TO BE WET RALES AND RHONCHI, DIM IN THE BASES, BT VERY HYPOACTIVE. PUPIL RESPONSE SLUGGISH SMALL AMOUNT OF OCCULAR EDEMA ON THE RIGHT NOTED. BIPAP MASK MOIST ON THE INSIDE CALLED RT WHO CAME TO THE BEDSIDE. WHILE CHECKING PUPIL RESPONSE THE PT UDDERED THE FIRST CLEAR WORDS THIS RN HAS HEARD HIM SAY "NOBODY HERE BUT US REINDEER." PT RETURNED TO HIS PREVIOUS NON-VERBAL STATE. CALLED DR LEES, ABX ALREADY ORDERED WELL BLOOD, URINE AND SPUTUM CULTURES. SPOKE ABOUT WET LUNG SOUNDS AND ELEVATED RESP RATE. CHEST XRAY ORDER PENDING WELL HEAD CT. CURRENTLY PT IN BED WITH NO S&S OF DISTRESS.
--- NOTE | 2023-07-24 13:16 | NUR ---
ASSUMPTION OF CARE PT TRANSFERRED TO UNIT VIA HOSPITAL BED AT APPROX 1050. BEDSIDE REPORT PERFORMED. PT AOX1-2. LETHARGIC. AROUSABLE TO VERBAL AND PAINFUL STIMULI. PT IS VERBALLY COMMUNICATING W/ WORDS, DIFFICULTY COMMUNICATING NEEDS. THIS RN ABLE TO UNDERSTAND INTERMITTENTLY. UNABLE TO ENGAGE IN A FULL CONVERSATION. ANSWERS QUESTIONS W/ ONE WORD RESPONSES TO THE BEST OF HIS ABILITY. ORIENTED TO PERSON, BIRTHDATE, AND MONTH. REQUIRES REORIENTATION TO LOCATION. PT EXPERIENCING VISUAL HALLUCINATIONS - STATING THAT HIS WAS PRESENT AT BEDSIDE. COOPERATIVE W/ CARE. TELEMETRY SHOWING SR W/ PAC'S AND PVC'S, 80'S-90'S. INTERMITTENT EPISODES OR IRREGULARITY AND PULSE INCREASE. HR INCREASED TO 160, LASTING FOR 8 BEATS, THEN RETURNED TO BASELINE. NO FURTHER EPISODES. SBP >160 UPON ARRIVAL, SUSTAINING. IV HYDRALIZINE ADMINISTERED PER EMAR, SBP CURRENTLY <160. TRANSFERRED TO UNIT ON BIPAP, SATS >95%. ON 2L VIA NC OFF OF BIPAP, SATS >95%. ABLE TO TOLERATE FOR <5 MINUTES, THEN PT BECOMES INCREASINGLY LETHARGIC, DROWSY. CURRENTLY RESTING COMFORTABLY ON BIPAP. DURING BEDSIDE REPORT, THIS RN WAS TOLD THAT THE PT HAD NOT HAD A BM FOR 8 DAYS, WAS TOLD THAT MD IS AWARE. HYPOACTIVE BOWEL TONES AUSCULTATED, ABDOMEN IS FIRM. RCVD IN REPORT THAT PT IS INCONTINENT OF URINE, ATTENDS C/D/I UPON ARRIVAL. BLADDER SCAN PERFORMED, SHOWING 300-400ML. CONTACTED, VD ORDER FOR STRAIGHT CATH PROCEDURE. PROCEDURE PERFORMED AND UA COLLECTED. ATTENDS AND WRAP IN PLACE. SEE ASSESSMENT FOR MORE INFORMATION. WILL CONTINUE TO MONITOR.
--- NOTE | 2023-07-24 17:52 | NUR ---
SHIFT SUMMARY NO FURTHER ACUTE CHANGES SINCE ASSUMPTION OF CARE. REMAINED AOX1-2. DROWSY, SLEPT T/O THE AFTERNOON. AROUSABLE TO VERBAL STIMULI. COMMUNICATING THROUGH ONE WORD STATEMENTS. INCREASED MENTATION THIS AFTERNOON, REQUESTING WATER. W/ HEAD OF BED ELEVATED, SMALL SIPS OF WATER GIVEN VIA SPOON, PT TOLERATED WELL. PO ALDACTONE, PROPANOLOL, AND BUPROPRIONE GIVEN W/ APPLESAUCE. TELEMETRY SHOWING SR W/ PAC'S AND PVC'S, 90'S-110'S. CONTINUED INTERMITTENT EPISODES OF IRREGULARITY AND PULSE INCREASE UP TO 120, HIGHEST 160'S. PT ON BIPAP WHILE SLEEPING, SATS >95%. FAMILY AT BEDSIDE IN THE AFTERNOON, PT ABLE TO TOLERATE 2L VIA NC TO VISIT, SATS >95%. NO VOID SINCE STRAIGHT CATH PROCEDURE. BLADDER SCAN PERFORMED, RETAINING 200ML-300ML. CONTACTED PRIOR TO EVENING DOSE OF LASIX, RCVD ORDER TO PLACE PENA. STRONG URINE ODOR ASSESSED, PENA DRAINING TO GRAVITY. IV ABX INFUSING PER EMAR. PT CURRENTLY RESTING ON BIPAP. CALL LIGHT IN REACH. WILL REPORT TO ONCOMING RN.
--- NOTE | 2023-07-24 22:43 | NUR ---
PATIENT ALERT AND ORIENTED X1-2. PERRLA, GLASSES AT BEDSIDE. MUMBLED SPEECH, AT TIMES HARD TO UNDERSTAND AND FOLLOW PATIENT THOUGHT PROCESS. SPEAKING IN SMALL SENTENCES. LETHARGIC. OPENING EYES AND WAKING EASILY TO TOUCH AND VERBAL STIMULI. FOLLOWING SIMPLE COMMANDS. VERY WEAK THROUGHOUT. DENIES NUMBNESS/TINGLING. PATIENT ON 2L NASAL CANNULA AT START OF SHIFT. TRANSITIONED BACK TO BIPAP WHILE PATIENT IS SLEEPING. WEARING BIPAP AT THIS TIME. LUNGS SOUNDING COARSE AND DIM IN BASES. NO COUGH NOTED. BELLY BREATHING AT TIMES. EVEN RESPIRATIONS. TELE SHOWING SR/ST WITH PAC'S AND PVC'S. DENIES CHEST PAIN/PRESSURE/PALPITATIONS. SBP ELEVATED, PO NIGHT CARDIAC MEDS GIVEN PER EMAR. LOWER EXTREMITY AND GENERALIZED EDEMA. PPP. ABDOMIN DISTENDED, DENIES PAIN. PENA CATH IN PLACE DRAINING CLEAR/YELLOW GRAVITY, CATH CARE COMPLETED. LARGE INCONTINENCE OF STOOL AT START OF SHIFT. ATTENDS IN PLACE. CRAM APPLIED TO COCCYZ AND POSTERIOR SCROTUM. SCROTUM EDEMATOUS. NEW IV PLACED IN RIGHT AC. ABX INFUSING AT THIS TIME PER EMAR. Q2 TURNING AND NEEDED. PATIENT DENIES PAIN. CALL LIGHT IN REACH.
[2023-07-25] VITALS (7 sets, daily range): BP systolic 153–187; BP diastolic 74–98
[2023-07-25 04:08] LABS: BASOPHILS ABSOLUTE AUTO 0.07 K/mm3 (0.00-0.23); BASOPHILS PERCENT AUTO 1 % (0-2); EOSINOPHILS ABSOLUTE AUTO 0.15 K/mm3 (0.00-0.68); EOSINOPHILS PERCENT AUTO 1 % (0-6); Hematocrit 35.8 % (37.0-53.0); Hemoglobin 11.9 g/dL (13.5-17.5); IMMATURE GRAN PERCENT AUTO 1 % (0-1); LYMPHOCYTES ABSOLUTE AUTO 1.31 K/mm3 (0.84-5.20); LYMPHOCYTES PERCENT AUTO 9 % (21-46); MONOCYTES ABSOLUTE AUTO 1.29 K/mm3 (0.16-1.47); MONOCYTES PERCENT AUTO 9 % (4-13); Mean Corpuscular HGB 35.4 pg (26.0-34.0); Mean Corpuscular HGB Conc 33.2 g/dL (31.5-36.5); Mean Corpuscular Volume 107 fL (80-100); Mean Platelet Volume 10.2 fL (9.1-12.4); NEUTROPHILS ABSOLUTE AUTO 12.04 K/mm3 (1.96-9.15); NEUTROPHILS PERCENT AUTO 80 % (41-73); Platelet Count 358 K/mm3 (150-400); RDW Standard Deviation 71.3 fL (35.1-46.3); Red Blood Cell Count 3.36 M/mm3 (4.30-5.90); White Blood Cell Count 15.06 K/mm3 (4.00-11.30)
[2023-07-25 04:32] LABS: Albumin, Blood 1.6 g/dL (3.4-5.0); Albumin/Globulin Ratio 0.4 (0.8-1.8); Bilirubin, Total 0.5 mg/dL (0.1-1.0); Bun/Creatinine Ratio 16.9 (12.0-20.0); Calcium, Blood 8.2 mg/dL (8.5-10.1); Creatinine, Blood 0.65 mg/dL (0.60-1.20); Globulin, Blood 4.2 g/dL (2.2-4.0); Potassium, Blood 3.3 mmol/L (3.5-5.5); Total Protein, Blood 5.8 g/dL (6.4-8.2)
--- NOTE | 2023-07-25 05:57 | NUR ---
SHIFT SUMMARY: PATIENT REMAINS ALERT TO SELF. NO CHANGES TO NEURO. WEARING BIPAP THROUGHOUT THE NIGHT, TAKING BREAKS FOR ORAL CARE AND MEDS. PATIENT CONTINUES TO OPEN EYES AND FOLLOW SIMPLE COMMANDS. WHEN UNBOTHERED PATIENT FALLS ASLEEP QUICKLY. TELE CONTINUES TO SHOW SR/ST WITH PVC'S AND PAC'S. SMALL RUN OF NONSUSTAINED VTACH THIS AM. PATIENT NON SYMPTOMATIC. SEE SAVED TELE STRIPS. 3 MODERATE TO LARGE SOFT BOWEL MOVEMENTS THIS SHIFT. Q2 TURNING AND NEEDED. POSTERIOR SCROTUM WITH SCANT EXCORIATION AND BLEEDING, CREAM APPLIED. TAKING MEDS WHOLE WITH APPLESAUCE. IV ABX INFUSED THROUGHOUT SHIFT. CALL LIGHT IN REACH. PATIENT SLEEPING IN BED WITH LEFT HIP AND ARMS FLOATED.
--- NOTE | 2023-07-25 08:00 | NUR ---
Initial Assessment: This RN entered the room to the Bi-Pap alarming, pt pulled it off and is talking about his car not starting this morning. NC placed. Patient is oriented to self only. He thinks that he is in [place] this morning. He is easily reoriented. He is only able to answer with 1-2 words at a time. He states he is having 8/10 lower back pain, pt repositioned and tylenol given at this time. HR irreg, SR in the 70s with PACs and PVCs. LS DIM T/O with and EXP Wheeze in the right side. He has shallow tachypnec respirations. His biox is low 90s on RA. He is otherwise on the Bi-Pap with saturations in the mid 90s. He has snoring respirations even with the Bi-Pap on. BT Hypoactive, his abd is very distended. He had alot of bowel movements last night after recieving a suppository. He has a lagos cath, patent and draining clear yellow urine. He has an ulcer on the top of his foreskin. He has enlarged testicles with some excoration on the bottom of them. He has attends in place. Patient repositioned to the left side, with the assistance of 3 staff. Patient denies other needs at this time. Call light in reach, will continue to monitor.
--- NOTE | 2023-07-25 10:00 | NUR ---
Update: Dr. Chisholm to the room to have a family discussion regarding goals of care and code status. Patient is changed to DNR status. Patient denies other needs at this time. Family at bedside.
--- NOTE | 2023-07-25 14:30 | NUR ---
Update: Patient was assisted back to bed from the chair with the ceiling lift, he was yelling at staff stating, "there is a bomb in here, I need you to wheel me down the hallway and get me out of here." Shortly after he had gotten back to bed he wanted to try and walk. With the assistance of two staff members he was able to get to the edge of the bed and dangle. He was able to stand twice, but not able to march in place while standing. He was assisted to lie back down. He denies other needs at this time. Call light in reach. Blood pressure has been on the high side, MD aware awaiting new orders.
[2023-07-25 14:46] LABS: Influenza A, PCR NEGATIVE (NEGATIVE); Influenza B, PCR NEGATIVE (NEGATIVE); Resp Syncytial Virus, PCR NEGATIVE (NEGATIVE); SARS-Cov-2 (COVID-19) PCR, MMC NEGATIVE (NEGATIVE)
[2023-07-26 03:31] VITALS: BP 153/67
[2023-07-26 03:57] LABS: BASOPHILS ABSOLUTE AUTO 0.07 K/mm3 (0.00-0.23); BASOPHILS PERCENT AUTO 1 % (0-2); EOSINOPHILS ABSOLUTE AUTO 0.18 K/mm3 (0.00-0.68); EOSINOPHILS PERCENT AUTO 2 % (0-6); Hematocrit 33.8 % (37.0-53.0); Hemoglobin 11.1 g/dL (13.5-17.5); IMMATURE GRAN ABSOLUTE AUTO 0.24 K/mm3 (0.00-0.10); IMMATURE GRAN PERCENT AUTO 2 % (0-1); LYMPHOCYTES ABSOLUTE AUTO 1.37 K/mm3 (0.84-5.20); LYMPHOCYTES PERCENT AUTO 12 % (21-46); MONOCYTES ABSOLUTE AUTO 1.01 K/mm3 (0.16-1.47); MONOCYTES PERCENT AUTO 9 % (4-13); Mean Corpuscular HGB 35.2 pg (26.0-34.0); Mean Corpuscular HGB Conc 32.8 g/dL (31.5-36.5); Mean Corpuscular Volume 107 fL (80-100); Mean Platelet Volume 10.5 fL (9.1-12.4); NEUTROPHILS ABSOLUTE AUTO 8.51 K/mm3 (1.96-9.15); NEUTROPHILS PERCENT AUTO 75 % (41-73); Platelet Count 345 K/mm3 (150-400); RDW Coefficient Variation 17.6 % (11.7-14.2); Red Blood Cell Count 3.15 M/mm3 (4.30-5.90); White Blood Cell Count 11.38 K/mm3 (4.00-11.30)
[2023-07-26 04:23] LABS: Albumin, Blood 1.6 g/dL (3.4-5.0); Albumin/Globulin Ratio 0.4 (0.8-1.8); Bilirubin, Total 0.5 mg/dL (0.1-1.0); Bun/Creatinine Ratio 15.5 (12.0-20.0); Calcium, Blood 8.1 mg/dL (8.5-10.1); Creatinine, Blood 0.64 mg/dL (0.60-1.20); Globulin, Blood 4.1 g/dL (2.2-4.0); Potassium, Blood 3.1 mmol/L (3.5-5.5); Total Protein, Blood 5.7 g/dL (6.4-8.2)
--- NOTE | 2023-07-26 07:41 | NUR ---
SHIFT SUMMARY PATIENT ALERT AND ORIENTED TO SELF. PATIENT AWAKE AND CONVERSING WITH STAFF, ABLE TO FOLLOW DIRECTIONS, MUMBLES. MEDICATED PER EMAR FOR PAIN. ON ROOM AIR WHILE AWAKE AND ON CPAP WHILE SLEEPING, NO COMPLAINTS OF SHORTNESS OF BREATH, PATIENT TACHYPNIC AT TIMES, LUNGS DIMINISHED. SBP IN THE 150'S, HAD TWO RUNS OF VTACH. NO COMPLAINTS OF CHEST PAIN. WILL CONTINUE TO MONITOR. CALL LIGHT WITHIN REACH.
[2023-07-26 08:18] VITALS: BP 162/101
[2023-07-26 09:22] LABS: Vancomycin, Trough 16.3 ug/mL (5.0-10.0)
[2023-07-26 11:48] VITALS: BP 154/67
--- NOTE | 2023-07-26 12:50 | NUR ---
INCREASED TEMPERATURE PT WITH INCREASED TEMP UP TO 101.1; TYLENOL ADMINISTERED PER EMAR. RECTAL THERMOMETER IN PLACE, CURRENT TEMP 100.9. BLANKETS REMOVED, FAN ON PT.
[2023-07-26 13:31] LABS: Bun/Creatinine Ratio 13.8 (12.0-20.0); Calcium, Blood 8.3 mg/dL (8.5-10.1); Creatinine, Blood 0.72 mg/dL (0.60-1.20); Potassium, Blood 3.1 mmol/L (3.5-5.5)
[2023-07-26 15:27] VITALS: BP 155/75
--- NOTE | 2023-07-26 17:05 | NUR ---
END OF SHIFT NOTE PT ALERT AND ORIENTED TO PERSON, PLACE, TIME, AND SITUATION. NO ACUTE CHANGES THIS SHIFT. HR 70'S-90'S W/ WANDERING ATRIAL PACEMAKER AND MULTIPLE RUNS OF SVT. SBP 150-160'S, PT DENIES CP/PRESSURE. SPO2 >92% ON RA, PT DENIES SOB; NO VISIBLE DYSPNEA. RECTAL TEMP PROBE IN PLACE W/ TEMPS 100.7-101.1; TYLENOL ADMINISTERED, BLANKETS REMOVED, FAN ON PT. PENA CATH IN PLACE FOR ACCURATE I&O AND RETENTION; DRAINING CHELSEA URINE TO GRAVITY. NO BM THIS SHIFT. BED BATH COMPLETED. PT UP TO CHAIR W/ LIFT FOR MEALS AND THERAPY. REPOSITIONED T/O SHIFT. ABLE TO SWALLOW MEDS WHOLE WITH APPLESAUCE. PT DENIES OTHER NEEDS AT THIS TIME. CALL LIGHT WITHIN REACH.
[2023-07-26 20:53] VITALS: BP 123/62
[2023-07-26 23:00] VITALS: BP 121/67
[2023-07-27 04:17] LABS: BASOPHILS ABSOLUTE AUTO 0.07 K/mm3 (0.00-0.23); BASOPHILS PERCENT AUTO 1 % (0-2); EOSINOPHILS ABSOLUTE AUTO 0.31 K/mm3 (0.00-0.68); EOSINOPHILS PERCENT AUTO 3 % (0-6); Hematocrit 34.8 % (37.0-53.0); Hemoglobin 11.5 g/dL (13.5-17.5); IMMATURE GRAN ABSOLUTE AUTO 0.46 K/mm3 (0.00-0.10); IMMATURE GRAN PERCENT AUTO 4 % (0-1); LYMPHOCYTES ABSOLUTE AUTO 1.46 K/mm3 (0.84-5.20); LYMPHOCYTES PERCENT AUTO 13 % (21-46); MONOCYTES ABSOLUTE AUTO 0.75 K/mm3 (0.16-1.47); MONOCYTES PERCENT AUTO 7 % (4-13); Mean Corpuscular HGB 35.8 pg (26.0-34.0); Mean Corpuscular Volume 108 fL (80-100); Mean Platelet Volume 10.7 fL (9.1-12.4); NEUTROPHILS ABSOLUTE AUTO 8.02 K/mm3 (1.96-9.15); NEUTROPHILS PERCENT AUTO 72 % (41-73); Platelet Count 339 K/mm3 (150-400); RDW Coefficient Variation 17.4 % (11.7-14.2); RDW Standard Deviation 70.3 fL (35.1-46.3); Red Blood Cell Count 3.21 M/mm3 (4.30-5.90); White Blood Cell Count 11.07 K/mm3 (4.00-11.30)
[2023-07-27 04:37] LABS: Albumin, Blood 1.7 g/dL (3.4-5.0); Albumin/Globulin Ratio 0.4 (0.8-1.8); Bilirubin, Total 0.4 mg/dL (0.1-1.0); Bun/Creatinine Ratio 15.2 (12.0-20.0); Calcium, Blood 8.2 mg/dL (8.5-10.1); Creatinine, Blood 0.92 mg/dL (0.60-1.20); Globulin, Blood 4.2 g/dL (2.2-4.0); Potassium, Blood 2.9 mmol/L (3.5-5.5); Total Protein, Blood 5.9 g/dL (6.4-8.2)
[2023-07-27 04:45] VITALS: BP 139/92
--- NOTE | 2023-07-27 06:17 | NUR ---
SHIFT SUMMARY PATIENT ALERT AND ORIENTED TO SELF. CONFUSION INCREASED OVERNIGHT BUT REMAINED PLEASANT AND COOPORATIVE WITH CARE. PATIENT REQUESTED ON AND OFF THE BIPAP SEVERAL TIMES, OTHERWISE ON ROOM AIR WITH SPO2 IN THE HIGH 90'S. VITAL SIGNS STABLE, SINUS RHYTHM ON TELE, HAD A RUN OF VTACH. WILL CONTINUE TO MONITOR. CALL LIGHT WITHIN REACH.
[2023-07-27 07:53] VITALS: BP 141/90
[2023-07-27 12:15] VITALS: BP 121/56
--- NOTE | 2023-07-27 15:06 | NUR ---
MENTATION CHANGE THIS RN AT PT BEDSIDE TO REASSESS ORIENTATION. THIS AM, PT WAS ABLE TO STATE HIS NAME, BIRTHDATE, YEAR, AND THE PRESIDENT. HE BELIEVED HE WAS AT HOME AT THE TIME OF ASSESSMENT. THIS PM, PT IS ALERT AND ORIENTED ONLY TO HIMSELF. PT BELIEVES HIS IS IN [place] FOR BACK SURGERY/IMAGING. HE STATES THAT THE YEAR IS 1997 AND THE PRESIDENT IS SANTANA DICKSON. THIS RN ALSO OBSERVED PT CALLING FOR HIS , GIVING HER DIRECTIONS TO FOLLOW, BUT SHE WAS NOT PRESENT IN THE ROOM. PT WAS TALKING TO HIS NEPHEW AND PROVIDING INSTRUCTIONS FOR PAPERWORK, BUT HIS NEPHEW WAS NOT PRESENT IN THE ROOM. PT STATES HE IS TIRED AND WANTS TO SLEEP; BIPAP PLACED ON PT.
[2023-07-27 16:10] VITALS: BP 141/97
--- NOTE | 2023-07-27 16:33 | NUR ---
PHYSICIAN CONTACT CALL PLACED TO MD BURDEN REGARDING POTASSIUM REDRAW. ORDERS RECEIVED FOR BMP TO BE DRAWN NOW THE POTASSIUM INFUSION IS COMPLETE. ORDERS RECEIVED FOR LASIX TO BE ADMINISTERED PER EMAR IF POTASSIUM REDRAW IS ABOVE 4.0.
[2023-07-27 17:16] LABS: Bun/Creatinine Ratio 17.2 (12.0-20.0); Calcium, Blood 8.3 mg/dL (8.5-10.1); Creatinine, Blood 0.87 mg/dL (0.60-1.20); Potassium, Blood 3.2 mmol/L (3.5-5.5)
--- NOTE | 2023-07-27 18:34 | NUR ---
END OF SHIFT NOTE PT ALERT, ORIENTED X1-3; SEE PREVIOUS NOTES REGARDING MENTATION CHANGES. ABLE TO CALL APPROPRIATELY AND MAKE NEEDS KNOWN TO STAFF. COOPERATIVE WITH CARE. HR WANDERING ATRIAL PACEMAKER, RATE 70-90'S WITH INCREASES TO 130-170'S AT REST. MULTIPLE RUNS OF SVT AND VTAMD MARY AWARE. SBP 120-140'S, PT DENIES CP/PRESSURE. SPO2 >90% ON RA, BIPAP WHILE SLEEPING. AFEBRILE. PENA CATH IN PLACE DRAINING TEA-COLORED URINE TO GRAVITY; 275ML OUTPUT THIS SHIFT. 1 SMALL SMEAR BM. PT UP TO CHAIR FOR SEVERAL HOURS WITH LIFT. REPOSITIONED FREQUENTLY T/O SHIFT. CALL LIGHT WITHIN REACH, BED IN LOWEST POSITION. BED ALARM ON.
--- NOTE | 2023-07-27 18:51 | NUR ---
FAMILY UPDATE PT'S CALLED FOR UPDATE. DISCUSSED CURRENT CONDITION AND PLAN OF CARE. UPDATED ON MENTATION CHANGES AND HR MANAGEMENT. PT'S VOICED UNDERSTANDING OF THIS.
[2023-07-27 22:07] VITALS: BP 147/78
[2023-07-27 23:46] VITALS: BP 142/82
[2023-07-28 03:37] LABS: BASOPHILS ABSOLUTE AUTO 0.06 K/mm3 (0.00-0.23); BASOPHILS PERCENT AUTO 1 % (0-2); EOSINOPHILS ABSOLUTE AUTO 0.28 K/mm3 (0.00-0.68); EOSINOPHILS PERCENT AUTO 3 % (0-6); Hematocrit 30.8 % (37.0-53.0); Hemoglobin 10.1 g/dL (13.5-17.5); IMMATURE GRAN ABSOLUTE AUTO 0.28 K/mm3 (0.00-0.10); IMMATURE GRAN PERCENT AUTO 3 % (0-1); LYMPHOCYTES ABSOLUTE AUTO 1.29 K/mm3 (0.84-5.20); LYMPHOCYTES PERCENT AUTO 13 % (21-46); MONOCYTES ABSOLUTE AUTO 0.66 K/mm3 (0.16-1.47); MONOCYTES PERCENT AUTO 7 % (4-13); Mean Corpuscular HGB 35.3 pg (26.0-34.0); Mean Corpuscular HGB Conc 32.8 g/dL (31.5-36.5); Mean Corpuscular Volume 108 fL (80-100); NEUTROPHILS ABSOLUTE AUTO 7.06 K/mm3 (1.96-9.15); NEUTROPHILS PERCENT AUTO 73 % (41-73); Platelet Count 308 K/mm3 (150-400); RDW Coefficient Variation 17.5 % (11.7-14.2); RDW Standard Deviation 69.7 fL (35.1-46.3); Red Blood Cell Count 2.86 M/mm3 (4.30-5.90); White Blood Cell Count 9.63 K/mm3 (4.00-11.30)
[2023-07-28 03:40] VITALS: BP 154/101
[2023-07-28 04:26] LABS: Albumin, Blood 2.2 g/dL (3.4-5.0); Albumin/Globulin Ratio 0.6 (0.8-1.8); Bilirubin, Total 0.4 mg/dL (0.1-1.0); Calcium, Blood 8.1 mg/dL (8.5-10.1); Creatinine, Blood 0.78 mg/dL (0.60-1.20); Globulin, Blood 3.5 g/dL (2.2-4.0); Total Protein, Blood 5.7 g/dL (6.4-8.2)
[2023-07-28 04:55] LABS: Base Excess Venous 5.4 mmol/L; Bicarbonate Venous 28.8 mmol/L (24.0-30.0); PCO2 Venous 41.4 mmHg (38-42); pH Blood Venous 7.46 (7.34-7.37)
--- NOTE | 2023-07-28 06:27 | NUR ---
SHIFT SUMMARY PATIENT ALERT AND ORIENTED TO SELF ONLY. HE WAS VERY CONFUSED, HAVING DIFFICULTY FOLLOWING DIRECTIONS, HALLUCINATING, AND FREQUENTLY TRYING TO GET OUT OF BED BY HIMSELF AND AT ONE POINT ALMOST FELL ON THE FLOOR DUE TO THIS, REQUIRED BEING PLACED ON CAMERA MONITORING FOR SAFETY. PATIENT REPORTED THAT HE NEEDED TO HAVE A BOWEL MOVEMENT BUT WAS UNABLE TO, ADMINISTERED A SUPPOSITORY FOR CONSTIPATION. PATIENT DID NOT SLEEP ALL NIGHT. CALLED DR HARRISON TO NOTIFY HER OF THIS STATE OF INCREASED CONFUSION AND NOTED THAT THE PATIENT HAD NOT WORN HIS BIPAP MUCH IN THE LAST COUPLE DAYS. ASKED DR HARRISON FOR A VBG TO SEE IF THIS COULD BE THE REASON FOR THE INCREASED CONFUSION. ALSO NOTIFIED HER THAT THE PATIENT'S POTASSIUM WAS 3.0 THIS MORNING. WILL CONTINUE TO MONITOR. CALL LIGHT WITHIN REACH.
[2023-07-28 07:12] VITALS: BP 172/90
[2023-07-28 12:09] VITALS: BP 171/76
[2023-07-28 12:58] LABS: Source, Urine Foley catheter
[2023-07-28 13:05] LABS: Appearance, Urine Clear (Clear); Bilirubin, Urine Neg (Neg); Blood, Urine 4+ (Neg); Color, Urine Yellow (P-Yellow); Glucose Qualitative, Urine Neg (Neg); Ketones, Urine 1+ (Neg); Leukocyte Esterase, Urine Neg (Neg); Nitrite, Urine Neg (Neg); Protein, Urine 2+ (Neg); Specific Gravity, Urine 1.015 (1.003-1.022); Urobilinogen, Urine 1+ (Normal); pH, Urine 6.5 (5.0-8.0)
[2023-07-28 13:13] LABS: Mucus Heavy (0-Heavy)
[2023-07-28 13:14] LABS: Squamous Epithelial Cells Not Seen /hpf (Few); Transitional Epithelial Cells Few /hpf (0-Rare); White Blood Cells, Urine 0-2 /hpf (0-5)
[2023-07-28 13:15] LABS: Bacteria Few /hpf
[2023-07-28 15:39] VITALS: BP 175/76
--- NOTE | 2023-07-28 16:16 | NUR ---
NEURO UPDATE PT AWOKE AROUND 1500 AND WAS REMOVED FROM BIPAP. PT ABLE TO STATE NAME, BIRTHDATE, MONTH/YEAR, AND PRESIDENT. UNSURE OF PLACE AND WHY HE IS IN THE HOSPITAL. PT ABLE TO FOLLOW MOST COMMANDS AND PARTICIPATE IN CARE. SPEECH REMAINS SLOW. PT ABLE TO COMMUNICATE NEEDS WITH STAFF.
[2023-07-28 17:00] LABS: Bun/Creatinine Ratio 11.6 (12.0-20.0); Calcium, Blood 8.5 mg/dL (8.5-10.1); Creatinine, Blood 0.6 mg/dL (0.60-1.20); Potassium, Blood 3.5 mmol/L (3.5-5.5)
--- NOTE | 2023-07-28 17:08 | NUR ---
END OF SHIFT NOTE: PT ALERT AT TIMES BUT LETHARGIC THE MAJORITY OF SHIFT. ORIENTED TO SELF; ORIENTATION TO TIME/PLACE/SITUATION VARY T/O THE SHIFT. ABLE TO FOLLOW MOST COMMANDS AND COMMUNICATE NEEDS WITH STAFF. HR 60-80'S, WANDERING ATRIAL PACEMAKER. SBP 170'S. SPO2 >92% ON RA WHILE AWAKE; BIPAP WHILE RESTING. TEMP 100.1 THIS AM, FAN APPLIED AND BLANKETS REMOVED. AFEBRILE REMAINDER OF SHIFT. PENA CATH IN PLACE DRAINING YELLOW URINE; URINE SAMPLE COLLECTED AND SENT PER ORDERS. NO BM THIS SHIFT. REPOSITIONED T/O SHIFT. CAMERA MONITORING IN PLACE FOR PT SAFETY D/T CONFUSION. BED ALARM ON. CALL LIGHT WITHIN REACH, BED IN LOWEST POSITION.
[2023-07-28 20:45] VITALS: BP 161/91
[2023-07-29] VITALS (7 sets, daily range): BP systolic 126–183; BP diastolic 61–107
[2023-07-29 05:10] LABS: BASOPHILS ABSOLUTE AUTO 0.07 K/mm3 (0.00-0.23); BASOPHILS PERCENT AUTO 1 % (0-2); EOSINOPHILS ABSOLUTE AUTO 0.31 K/mm3 (0.00-0.68); EOSINOPHILS PERCENT AUTO 3 % (0-6); Hematocrit 33.2 % (37.0-53.0); IMMATURE GRAN ABSOLUTE AUTO 0.37 K/mm3 (0.00-0.10); IMMATURE GRAN PERCENT AUTO 4 % (0-1); LYMPHOCYTES ABSOLUTE AUTO 1.46 K/mm3 (0.84-5.20); LYMPHOCYTES PERCENT AUTO 15 % (21-46); MONOCYTES PERCENT AUTO 7 % (4-13); Mean Corpuscular HGB 35.6 pg (26.0-34.0); Mean Corpuscular HGB Conc 33.1 g/dL (31.5-36.5); Mean Corpuscular Volume 107 fL (80-100); Mean Platelet Volume 10.3 fL (9.1-12.4); NEUTROPHILS ABSOLUTE AUTO 7.14 K/mm3 (1.96-9.15); NEUTROPHILS PERCENT AUTO 71 % (41-73); Platelet Count 337 K/mm3 (150-400); RDW Coefficient Variation 17.4 % (11.7-14.2); RDW Standard Deviation 69.3 fL (35.1-46.3); Red Blood Cell Count 3.09 M/mm3 (4.30-5.90); White Blood Cell Count 10.05 K/mm3 (4.00-11.30)
[2023-07-29 05:37] LABS: Albumin, Blood 2.4 g/dL (3.4-5.0); Albumin/Globulin Ratio 0.7 (0.8-1.8); Bilirubin, Total 0.3 mg/dL (0.1-1.0); Bun/Creatinine Ratio 12.5 (12.0-20.0); Calcium, Blood 8.4 mg/dL (8.5-10.1); Creatinine, Blood 0.72 mg/dL (0.60-1.20); Globulin, Blood 3.6 g/dL (2.2-4.0); Potassium, Blood 3.5 mmol/L (3.5-5.5)
--- NOTE | 2023-07-29 06:14 | NUR ---
End of shift note. Pt has rested for much of the shift. Mentation seems to be about the same as dayshift. Pt is oriented x2, has periods of clarity. Pt was repositioned as tolerated. Oh in place. Pt is able to make needs known, call light is within reach. Camera is in place.
--- NOTE | 2023-07-29 17:47 | NUR ---
SHIFT SUMMARY: PT HAS BEEN ALERT T/OUT THE DAY, ORIENTATION IMPROVES T/OUT THE DAY, PT ANSWERING QUESTIONS APPROPRIATELY AND COOPERATIVE W/CARE, ABLE TO MAKE NEEDS KNOWN. PT DENIES SOB, O2 SATS >93% ON RA WHILE AWAKE, PT USING BIPAP AT NOC, FAINT WHEEZES HEARD THIS AM HAVE CLEARED T/OUT SHIFT. AFIB ON MONITOR W/RATE IN 80s, PT DENIES CP. INDWELLING PENA CATHETER CONTINUES PATENT, DRAINING TO GRAVITY, CATHETER CARE PROVIDED PER PROTOCOL. PT W/MULTIPLE BM ATTEMPTS TODAY W/RESULT BEING MINIMAL OUTPUT/SMEARS. PT DOES EXIT BED W/2 PERSON SBA AND FWW, SPENDS AFTERNOON IN RECLINER. AT THIS TIME, PT IS RESTING IN BED W/DINNER TRAY AND CALL LIGHT WITHIN REACH. ALL ASSESSMENTS FOR IGNITABLE SOURCES HAVE BEEN NEGATIVE. WILL CONTINUE TO MONITOR AND TREAT ACCORDINGLY UNTIL CHANGE OF SHIFT.
[2023-07-30 04:55] VITALS: BP 168/83
[2023-07-30 05:29] LABS: BASOPHILS ABSOLUTE AUTO 0.09 K/mm3 (0.00-0.23); BASOPHILS PERCENT AUTO 1 % (0-2); EOSINOPHILS ABSOLUTE AUTO 0.39 K/mm3 (0.00-0.68); EOSINOPHILS PERCENT AUTO 4 % (0-6); Hematocrit 31.4 % (37.0-53.0); Hemoglobin 10.3 g/dL (13.5-17.5); IMMATURE GRAN ABSOLUTE AUTO 0.36 K/mm3 (0.00-0.10); IMMATURE GRAN PERCENT AUTO 4 % (0-1); LYMPHOCYTES PERCENT AUTO 18 % (21-46); MONOCYTES PERCENT AUTO 8 % (4-13); Mean Corpuscular HGB 34.9 pg (26.0-34.0); Mean Corpuscular HGB Conc 32.8 g/dL (31.5-36.5); Mean Corpuscular Volume 106 fL (80-100); Mean Platelet Volume 10.3 fL (9.1-12.4); NEUTROPHILS ABSOLUTE AUTO 6.13 K/mm3 (1.96-9.15); NEUTROPHILS PERCENT AUTO 65 % (41-73); Platelet Count 339 K/mm3 (150-400); RDW Coefficient Variation 17.2 % (11.7-14.2); RDW Standard Deviation 68.7 fL (35.1-46.3); Red Blood Cell Count 2.95 M/mm3 (4.30-5.90); White Blood Cell Count 9.37 K/mm3 (4.00-11.30)
--- NOTE | 2023-07-30 05:35 | NUR ---
End of shift note. Pt has rested for much of the shift. Pt has removed CPAP multiple times and needs to be reoriented but does go back to sleep. Mentation seems to be about the same. A&Ox2 with periods of clarity. Pt is able to make needs known,call light is within reach. Bed alarm is active. Sitter camera is engaged.
[2023-07-30 06:05] LABS: Albumin, Blood 2.4 g/dL (3.4-5.0); Albumin/Globulin Ratio 0.7 (0.8-1.8); Bilirubin, Total 0.3 mg/dL (0.1-1.0); Bun/Creatinine Ratio 13.4 (12.0-20.0); Calcium, Blood 8.2 mg/dL (8.5-10.1); Creatinine, Blood 0.67 mg/dL (0.60-1.20); Globulin, Blood 3.4 g/dL (2.2-4.0); Potassium, Blood 3.7 mmol/L (3.5-5.5); Total Protein, Blood 5.8 g/dL (6.4-8.2)
[2023-07-30 07:34] VITALS: BP 158/75
--- NOTE | 2023-07-30 09:00 | NUR ---
UPDATE PT AWAKE AND ALERT. PT CONFUSED AT TIMES, BUT REDIRECTABLE. CAMERA MONITORING TURNED OFF THIS AM AND PT CALLING APPROPRIATELY. BED ALARM ON FOR SAFETY. PT REPOSITIONING IN THE BED. O2 SATS >90% ON RA. TELEMETRY DISCONTINUED. PT COMPLAINS OF MILD BACK PAIN. WILL CONTINUE TO MONITOR CLOSELY
[2023-07-30 15:45] VITALS: BP 103/45
--- NOTE | 2023-07-30 16:56 | NUR ---
SHIFT SUMMARY PT'S MENTATION REMAINS THE SAME. PT USING CALL LIGHT THIS SHIFT, BUT BED ALARM IN PLACE FOR SAFETY. VS STABLE. O2 SATS REMAIN ABOVE 90% ON RA. PT COMPLAINS OF PAIN ON AND OFF TO HIS BACK. PT ABLE TO TRANSFER TO RECLINER WITH 2 ASSIST, GB AND FWW. PT UP TO CHAIR FOR LUNCH AND AGAIN FOR DINNER. PT REPORTS FEELING WORN OUT AFTER BEING UP FOR AN HOUR. PT REPOSITIONED Q2H AND MORE OFTEN NEEDED. WILL CONTINUE TO MONITOR AND REPORT TO ONCOMING RN
[2023-07-30 17:04] VITALS: BP 167/89
[2023-07-30 20:45] VITALS: BP 164/100
[2023-07-31] VITALS (7 sets, daily range): BP systolic 131–165; BP diastolic 58–92
[2023-07-31 03:22] LABS: BASOPHILS ABSOLUTE AUTO 0.08 K/mm3 (0.00-0.23); BASOPHILS PERCENT AUTO 1 % (0-2); EOSINOPHILS ABSOLUTE AUTO 0.46 K/mm3 (0.00-0.68); EOSINOPHILS PERCENT AUTO 4 % (0-6); Hematocrit 32.3 % (37.0-53.0); Hemoglobin 10.5 g/dL (13.5-17.5); IMMATURE GRAN ABSOLUTE AUTO 0.43 K/mm3 (0.00-0.10); IMMATURE GRAN PERCENT AUTO 4 % (0-1); LYMPHOCYTES ABSOLUTE AUTO 2.15 K/mm3 (0.84-5.20); LYMPHOCYTES PERCENT AUTO 20 % (21-46); MONOCYTES ABSOLUTE AUTO 0.73 K/mm3 (0.16-1.47); MONOCYTES PERCENT AUTO 7 % (4-13); Mean Corpuscular HGB 35.2 pg (26.0-34.0); Mean Corpuscular HGB Conc 32.5 g/dL (31.5-36.5); Mean Corpuscular Volume 108 fL (80-100); NEUTROPHILS ABSOLUTE AUTO 6.92 K/mm3 (1.96-9.15); NEUTROPHILS PERCENT AUTO 64 % (41-73); Platelet Count 370 K/mm3 (150-400); RDW Coefficient Variation 17.2 % (11.7-14.2); RDW Standard Deviation 68.7 fL (35.1-46.3); Red Blood Cell Count 2.98 M/mm3 (4.30-5.90); White Blood Cell Count 10.77 K/mm3 (4.00-11.30)
[2023-07-31 03:44] LABS: Albumin, Blood 2.5 g/dL (3.4-5.0); Albumin/Globulin Ratio 0.7 (0.8-1.8); Bilirubin, Total 0.3 mg/dL (0.1-1.0); Bun/Creatinine Ratio 13.1 (12.0-20.0); Calcium, Blood 8.3 mg/dL (8.5-10.1); Creatinine, Blood 0.84 mg/dL (0.60-1.20); Globulin, Blood 3.4 g/dL (2.2-4.0); Potassium, Blood 4.2 mmol/L (3.5-5.5); Total Protein, Blood 5.9 g/dL (6.4-8.2)
--- NOTE | 2023-07-31 18:39 | NUR ---
ASSUMED CARE OF PT AT 0700 THIS AM. NO ACUTE EVENTS T/O THE SHIFT. PT WORKED WITH PT/OT AND WALKED IN THE ROOM WITH THE WALKER TO THE RESTROOM AND BACK WITH THIS RN. BATH AND SHAVE TODAY. PLAN IS TO DC TO REHAB WHEN PT IS READY AND BED AVAILABLE. BED/CHAIR ALARM FOR SAFETY. PENA REMOVED TODAY AND PT ABLE TO VOID. PT IS ABLE TO USE CALL LIGHT FOR NEEDS. REPORT CALLED TO YARI BUTLER AND PT MOVED WITH ALL BELONGINGS TO 344. PT'S NOTIFIED OF ROOM CHANGED.
[2023-08-01 03:02] VITALS: BP 187/98
--- NOTE | 2023-08-01 03:48 | NUR ---
SHIFT SUMMARY. PT HAD A FALL EARLY IN SHIFT IN BATHROOM DURING TRANSFER. COMPLETED PROCESS INTERVENTION, COMPLETED IRIS REPORT, AND NOTIFIED HOSPITALIST YELENA. NO ORDERS FROM YELENA UNLESS SPECIFIC PAIN STARTS TO PRESENT AND WE CAN DO XRAY ON THE AREA AND IF THERE ARE ANY CHANGES IN MENTATION WE CAN PERFORM CT. NO SUCH DEVELOPMENTS THUS FAR. POST FALL ASSESSMENT UNCHANGED FROM PRE-FALL. NO CHANGE IN MENTATION. AFTER THAT, PT HAS SLEPT THROUGH MOST OF SHIFT. REINFORCED IMPORTANCE OF CALLING FOR ASSISTANCE BEFORE GETTING OOB TO WHICH PT VOICED UNDERSTANDING, BED ALARM REMAINS IN PLACE FOR SAFETY. CALL LIGHT IN REACH. PT HAS WORN CPAP THROUGHOUT MOST OF SHIFT. WOKE EARLY THIS MORNING SAYING THAT "IT IS TIME FOR HIM TO GO HOME" BUT WAS EASILY REORIENTED/REDIRECTED AND IS NOW RESTING COMFORTABLY IN BED. AOX2-3 THROUGHOUT SHIFT. NO PAIN REPORTED. SATTING WELL WITH CPAP, CONTINUOUS PULSE OX IN PLACE. BED LOCKED IN LOWEST POSITION.CALL LIGHT LEFT WITHIN REACH.
[2023-08-01 06:03] LABS: BASOPHILS ABSOLUTE AUTO 0.08 K/mm3 (0.00-0.23); BASOPHILS PERCENT AUTO 1 % (0-2); EOSINOPHILS ABSOLUTE AUTO 0.55 K/mm3 (0.00-0.68); EOSINOPHILS PERCENT AUTO 5 % (0-6); Hematocrit 37.3 % (37.0-53.0); Hemoglobin 11.9 g/dL (13.5-17.5); IMMATURE GRAN ABSOLUTE AUTO 0.31 K/mm3 (0.00-0.10); IMMATURE GRAN PERCENT AUTO 3 % (0-1); LYMPHOCYTES ABSOLUTE AUTO 2.35 K/mm3 (0.84-5.20); LYMPHOCYTES PERCENT AUTO 22 % (21-46); MONOCYTES ABSOLUTE AUTO 0.82 K/mm3 (0.16-1.47); MONOCYTES PERCENT AUTO 8 % (4-13); Mean Corpuscular HGB 34.8 pg (26.0-34.0); Mean Corpuscular HGB Conc 31.9 g/dL (31.5-36.5); Mean Corpuscular Volume 109 fL (80-100); Mean Platelet Volume 10.2 fL (9.1-12.4); NEUTROPHILS ABSOLUTE AUTO 6.46 K/mm3 (1.96-9.15); NEUTROPHILS PERCENT AUTO 61 % (41-73); Platelet Count 394 K/mm3 (150-400); RDW Coefficient Variation 17.1 % (11.7-14.2); RDW Standard Deviation 69.3 fL (35.1-46.3); Red Blood Cell Count 3.42 M/mm3 (4.30-5.90); White Blood Cell Count 10.57 K/mm3 (4.00-11.30)
[2023-08-01 06:32] LABS: Albumin, Blood 2.8 g/dL (3.4-5.0); Albumin/Globulin Ratio 0.7 (0.8-1.8); Bilirubin, Total 0.4 mg/dL (0.1-1.0); Bun/Creatinine Ratio 12.3 (12.0-20.0); Creatinine, Blood 0.89 mg/dL (0.60-1.20); Globulin, Blood 3.9 g/dL (2.2-4.0); Total Protein, Blood 6.7 g/dL (6.4-8.2)
[2023-08-01 07:35] VITALS: BP 161/81
[2023-08-01 17:17] VITALS: BP 146/77
--- NOTE | 2023-08-01 17:43 | NUR ---
SHIFT SUMMARY: PT HAS BEEN PLEASANT AND COOPERATIVE WITH STAFF. HE IS ALERT AND ORIENTED TO PERSON, PLACE, TIME/DATE, AND SITUATION. HE DOES HAVE EVENTS OF CONFUSION OF SITUATION AND OVER ESTIMATES HIS OWN ABLITIES. HE CONTINUES TO GET UP OUT OF HIS BED/CHAIR TODAY WITHOUT CALLING FOR ASSISTANCE FIRST AND STATED WHEN WE WOULD ADVISE HIM TO USE HIS CALL LIGHT HE STATED THAT WHEN THE ALARMS WENT OFF THAT HIS HOW HE CALLED FOR HELP. HE PARTICIPATED WITH OT AND PT TODAY AND WOULD AMBULATE TO THE RESTROOM. HE IS IN BED, CALL LIGHT WITHIN REACH, NO SIGNS OF SYMPTOMS OF DISTRESS. PLAN OF CARE ONGOING.
[2023-08-01 19:18] VITALS: BP 122/99
--- NOTE | 2023-08-02 04:26 | NUR ---
shift summary. shift has been unremarkable. pt has slept through most of shift after med pass and shift assessment but awakes very frequently to void. steady one person assist to bathroom. does not consistently use call light but bed alarm remains in place for safety. continent thus far this shift. pt was aox3-4 at time of shift assessment but mentation has fluctuated throughout shift, easily reoriented/redirected. satting well on room air while awake and using cpap while sleeping, continuous pulse ox in place. bed locked in lowest position. call light left iwhtin reach.
[2023-08-02 05:17] VITALS: BP 163/84
[2023-08-02 06:40] LABS: BASOPHILS ABSOLUTE AUTO 0.09 K/mm3 (0.00-0.23); BASOPHILS PERCENT AUTO 1 % (0-2); EOSINOPHILS PERCENT AUTO 4 % (0-6); Hematocrit 35.1 % (37.0-53.0); Hemoglobin 11.6 g/dL (13.5-17.5); IMMATURE GRAN ABSOLUTE AUTO 0.16 K/mm3 (0.00-0.10); IMMATURE GRAN PERCENT AUTO 2 % (0-1); LYMPHOCYTES ABSOLUTE AUTO 1.97 K/mm3 (0.84-5.20); LYMPHOCYTES PERCENT AUTO 21 % (21-46); MONOCYTES ABSOLUTE AUTO 0.79 K/mm3 (0.16-1.47); MONOCYTES PERCENT AUTO 9 % (4-13); Mean Corpuscular HGB 35.4 pg (26.0-34.0); Mean Corpuscular Volume 107 fL (80-100); Mean Platelet Volume 10.1 fL (9.1-12.4); NEUTROPHILS ABSOLUTE AUTO 5.92 K/mm3 (1.96-9.15); NEUTROPHILS PERCENT AUTO 63 % (41-73); Platelet Count 416 K/mm3 (150-400); RDW Coefficient Variation 16.9 % (11.7-14.2); RDW Standard Deviation 66.8 fL (35.1-46.3); Red Blood Cell Count 3.28 M/mm3 (4.30-5.90); White Blood Cell Count 9.33 K/mm3 (4.00-11.30)
[2023-08-02 07:16] LABS: Albumin, Blood 2.8 g/dL (3.4-5.0); Albumin/Globulin Ratio 0.8 (0.8-1.8); Bilirubin, Total 0.4 mg/dL (0.1-1.0); Bun/Creatinine Ratio 11.9 (12.0-20.0); Creatinine, Blood 0.92 mg/dL (0.60-1.20); Globulin, Blood 3.6 g/dL (2.2-4.0); Potassium, Blood 4.6 mmol/L (3.5-5.5); Total Protein, Blood 6.4 g/dL (6.4-8.2)
[2023-08-02 07:19] VITALS: BP 161/85
[2023-08-02 13:48] LABS: SARS-Cov-2 (COVID-19) PCR, MMC NEGATIVE (NEGATIVE)
[2023-08-02] MEDS ORDERED: ACET325 PO (15:29)
[2023-08-02] MEDS ORDERED: CARV25 PO (15:30)
[2023-08-02] MEDS ORDERED: FOLI1 PO (15:31)
[2023-08-02] MEDS ORDERED: DOCU100 PO (15:31)
== END 2023-08-02 16:02 | DRG 896 ==
LOC: ER 16:49 → MEDS 16:50 → PCU 07-16 11:46 → ICUE 07-16 15:06 → MEDS 07-16 15:06 → PCU 07-16 15:06 → ICUE 07-17 07:21 → MEDS 07-23 13:00 → PCU 07-24 10:38 → MEDS 07-31 18:25
PROVIDERS: Emergency Medicine; Family Medicine; Hospitalist; ADMIT Internal Medicine
PROC: 5A09357 Assistance with Respiratory Ventilation, Less than 24 Consecutive Hours, Continuous Positive Airway Pressure (ICD-10-PCS; 2023-07-15)
PROC: HZ2ZZZZ Detoxification Services for Substance Abuse Treatment (ICD-10-PCS; principal; 2023-07-17)
PROC: B24BYZZ Ultrasonography of Heart with Aorta using Other Contrast (ICD-10-PCS; 2023-07-19)
PROC: 4A033R1 Measurement of Arterial Saturation, Peripheral, Percutaneous Approach (ICD-10-PCS; 2023-07-23)
DX: F10.239 Alcohol dependence with withdrawal, unspecified (principal); G93.41 Metabolic encephalopathy; J96.01 Acute respiratory failure with hypoxia; I50.33 Acute on chronic diastolic (congestive) heart failure; J18.9 Pneumonia, unspecified organism; J45.901 Unspecified asthma with (acute) exacerbation; I48.21 Permanent atrial fibrillation; Z20.822 Contact with and (suspected) exposure to COVID-19; J82.83 Eosinophilic asthma; I16.1 Hypertensive emergency; I13.0 Hypertensive heart and chronic kidney disease with heart failure and stage 1 through stage 4 chronic kidney disease, or unspecified chronic kidney disease; J44.0 Chronic obstructive pulmonary disease with (acute) lower respiratory infection; Z68.42 Body mass index [BMI] 45.0-49.9, adult; G31.2 Degeneration of nervous system due to alcohol; F41.8 Other specified anxiety disorders; M54.9 Dorsalgia, unspecified; K59.00 Constipation, unspecified; G47.33 Obstructive sleep apnea (adult) (pediatric); H10.89 Other conjunctivitis; E87.6 Hypokalemia; G89.4 Chronic pain syndrome; F41.0 Panic disorder [episodic paroxysmal anxiety]; K76.0 Fatty (change of) liver, not elsewhere classified; R60.0 Localized edema; N18.9 Chronic kidney disease, unspecified; R77.8 Other specified abnormalities of plasma proteins; J06.9 Acute upper respiratory infection, unspecified; B96.20 Unspecified Escherichia coli [E. coli] as the cause of diseases classified elsewhere; T46.5X6A Underdosing of other antihypertensive drugs, initial encounter; T44.7X6A Underdosing of beta-adrenoreceptor antagonists, initial encounter; E66.01 Morbid (severe) obesity due to excess calories; R94.31 Abnormal electrocardiogram [ECG] [EKG]; E83.51 Hypocalcemia; Y95 Nosocomial condition; Z91.138 Patient's unintentional underdosing of medication regimen for other reason; Z88.5 Allergy status to narcotic agent; Z91.040 Latex allergy status; Z79.51 Long term (current) use of inhaled steroids; Z96.643 Presence of artificial hip joint, bilateral; Z96.612 Presence of left artificial shoulder joint; Z87.891 Personal history of nicotine dependence; Z79.01 Long term (current) use of anticoagulants; Z79.52 Long term (current) use of systemic steroids
CPT/HCPCS: 0202U; 0241U; 36415; 36600; 51702; 70450; 71045; 71046; 71260; 80048; 80053; 80202; 81001; 82140; 82607; 82746; 82803; 83605; 83735; 83880; 84132; 84145; 84484; 85025; 87040; 87086; 93005; 93010; 94640; 94660; 94664; 94760; 94762; 96365; 96366; 96367; 96368; 96374-59; 96375; 96375-59; 96376; 97110; 97116; 97162; 97166; 97530; 97535; 99285-25; A9270; A9500; C8929; C9113; G0378; J0295; J0360; J0612; J1650; J1940; J2060; J2930; J3010; J3370; J3411; J3475; J3480; J7030; J7050; J7120; J7512; P9047; Q9957; Q9967; U0002

== ENCOUNTER 2024-06-20 23:41 | Emergency (ER) | payer OTHER ==
[~2024-06-20] VITALS: Ht 182.9 cm; Wt 136.1 kg
[~2024-06-20 23:41] MED LIST changes: +ACET325 PO; +ATHLETE'S FOO35.4 GM TOP; +BUSPIRONE HCL PO; +CARV25 PO; +CARV3.125 PO; +CARV6.25 PO; +DOCU100 PO; +FLUT1DIS2 BC; +JARDIANCE10 MG PO; +LAMO25 PO; +OXYACE7.5T PO; +PANTOPRAZOLE SO40 M2 PO; +TORSE20 PO
[2024-06-20] MEDS ORDERED: FentaNYL Citrate 50 MCG/ML 2 ML Injection IV ONE (23:55)
[2024-06-21 00:27] LABS: BASOPHILS ABSOLUTE AUTO 0.07 K/mm3 (0.00-0.23); BASOPHILS PERCENT AUTO 1 % (0-2); EOSINOPHILS PERCENT AUTO 4 % (0-6); Hematocrit 37.3 % (37.0-53.0); Hemoglobin 12.1 g/dL (13.5-17.5); IMMATURE GRAN ABSOLUTE AUTO 0.04 K/mm3 (0.00-0.10); IMMATURE GRAN PERCENT AUTO 0 % (0-1); LYMPHOCYTES ABSOLUTE AUTO 3.54 K/mm3 (0.84-5.20); LYMPHOCYTES PERCENT AUTO 36 % (21-46); MONOCYTES PERCENT AUTO 9 % (4-13); Mean Corpuscular HGB Conc 32.4 g/dL (31.5-36.5); Mean Corpuscular Volume 93 fL (80-100); Mean Platelet Volume 9.1 fL (9.1-12.4); NEUTROPHILS ABSOLUTE AUTO 5.02 K/mm3 (1.96-9.15); NEUTROPHILS PERCENT AUTO 50 % (41-73); Platelet Count 226 K/mm3 (150-400); RDW Coefficient Variation 12.9 % (11.7-14.2); RDW Standard Deviation 43.9 fL (35.1-46.3); Red Blood Cell Count 4.03 M/mm3 (4.30-5.90); White Blood Cell Count 9.97 K/mm3 (4.00-11.30)
[2024-06-21 00:47] LABS: Albumin, Blood 3.2 g/dL (3.4-5.0); Albumin/Globulin Ratio 0.8 (0.8-1.8); Bilirubin, Total 0.3 mg/dL (0.1-1.0); Bun/Creatinine Ratio 14.2 (12.0-20.0); Calcium, Blood 8.6 mg/dL (8.5-10.1); Creatinine, Blood 0.98 mg/dL (0.60-1.20); Globulin, Blood 3.8 g/dL (2.2-4.0); Potassium, Blood 4.4 mmol/L (3.5-5.5)
[2024-06-21 02:00] VITALS: BP 160/69
[2024-06-21] MEDS ORDERED: Lidocaine 4% 1 Patch TOP ONE (02:00)
[2024-06-21] MEDS ORDERED: Ketorolac Tromethamine 30mg Vial IV ONE (02:00)
== END 2024-06-21 02:17 | disposition home or self-care (01) ==
LOC: ER 23:41
PROVIDERS: Student in an Organized Health Care Education/Training Program
DX: M25.511 Pain in right shoulder (principal); R42 Dizziness and giddiness; R00.1 Bradycardia, unspecified; W07.XXXA Fall from chair, initial encounter; Z91.040 Latex allergy status; Z88.5 Allergy status to narcotic agent; Z79.899 Other long term (current) drug therapy; I10 Essential (primary) hypertension; G47.33 Obstructive sleep apnea (adult) (pediatric); F10.20 Alcohol dependence, uncomplicated
CPT/HCPCS: 73030; 80053; 83880; 85025; 93005; 93010; 96374; 96375; 99284; A9270; J1885; J3010

== ENCOUNTER → 2024-09-22 | Outpatient (CLI) | payer OTHER | END | disposition home or self-care (01) | LOC: LAB 22:00 → LAB SHORT 22:00 | DX: J82.83 Eosinophilic asthma (principal) | CPT/HCPCS: 87070; 87205 ==

== ENCOUNTER 2024-12-11 11:29 | Inpatient (IN) | payer OTHER ==
[~2024-12-11] VITALS: Ht 182.9 cm; Wt 140.3 kg
[2024-12-11] VITALS (15 sets, daily range): BP systolic 115–192; BP diastolic 53–95
[2024-12-11] MEDS ORDERED: Lactated Ringer's 1,000 ML IV SCH ×2 (12:00→14:10)
[2024-12-11] MEDS ORDERED: Tranexamic Acid 1,000 MG in NS 100 ML IV SCH (12:00)
[2024-12-11] MEDS ORDERED: CeFAZolin Sodium 2,000 MG in NS 100 ML IV SCH (12:00)
[2024-12-11] MEDS ORDERED: OxyCODONE HCL 10 MG TABCR PO SCH (12:00)
[2024-12-11] MEDS ORDERED: Chlorhexidine Mouth Care 15 ML UDC MT SCH (12:00)
[2024-12-11] MEDS ORDERED: Ropivacaine 0.5% HCl/Pf 123.125 MG,EPINEPHrine HCL 0.25 MG,Ketorolac Tromethamine 15 MG... INFIL SCH (12:00)
[2024-12-11] MEDS ORDERED: Acetaminophen 500 MG Tab PO SCH ×2 (12:00→16:00)
[2024-12-11] MEDS ORDERED: CeFAZolin Sodium 3,000 MG in NS 100 ML IV SCH ×2 (12:05→22:00)
[2024-12-11] MEDS ORDERED: Midazolam HCl 1MG / ML 2ML Vial ONE (12:54)
[2024-12-11] MEDS ORDERED: FentaNYL Citrate 50 MCG/ML 2 ML Injection ONE ×2 (12:54→13:24)
[2024-12-11] MEDS ORDERED: Bupivacaine HCl 0.25% 30 ML Injection ONE (12:59)
--- NOTE | 2024-12-11 13:08 | NUR ---
BRACHIAL PLEXUS BLOCK TIMEOUT [address] BURDICK START:1312 END: 1321 PT FRANCO WELL, PLACED ON 3L O2 THROUGHOUT PROCEDURE. VSS
[2024-12-11] MEDS ORDERED: propofoL 20 ML IV ONE (13:22)
[2024-12-11] MEDS ORDERED: Rocuronium Bromide 10 MG/ML 5ML Injection IV ONE ×2 (13:23)
[2024-12-11] MEDS ORDERED: FLU VACC TS2024-25(6MOS UP)/PF 45 MCG/0.5 ML SYRINGE IM SCH (14:00)
[2024-12-11] MEDS ORDERED: HYDROmorphone HCl/Pf 1MG SYR IV PRN ×2 (14:00→14:40)
[2024-12-11] MEDS ORDERED: Promethazine HCl 25 MG Tab PO PRN (14:00)
[2024-12-11] MEDS ORDERED: Dexamethasone Sod Phos 10 MG/ML 1ML VIAL ONE (14:04)
[2024-12-11] MEDS ORDERED: Ondansetron HCl 2 MG / ML 2ML Vial ONE (14:04)
[2024-12-11] MEDS ORDERED: Bisacodyl 10 MG Supp PR PRN (14:05)
[2024-12-11] MEDS ORDERED: Prochlorperazine Edisylate 10 mg Vial IV PRN ×2 (14:05→14:35)
[2024-12-11] MEDS ORDERED: DiphenhydrAMINE HCL 25 MG Cap PO PRN (14:05)
[2024-12-11] MEDS ORDERED: OxyCODONE HCL 5 MG TAB PO PRN ×2 (14:05)
[2024-12-11] MEDS ORDERED: ePHEDrine Sulfate 50 MG/ML 1ML Injection ONE (14:09)
[2024-12-11] MEDS ORDERED: Magnesium Hydroxide Conc 10 ML UDC PO PRN (14:10)
[2024-12-11] MEDS ORDERED: Metoclopramide HCl 5MG / ML 2ML Vial IV PRN (14:10)
[2024-12-11] MEDS ORDERED: Ondansetron HCl 2 MG / ML 2ML Vial IV PRN ×2 (14:10→14:40)
[2024-12-11] MEDS ORDERED: FentaNYL Citrate 50 MCG/ML 2 ML Injection IV PRN ×3 (14:35)
[2024-12-11] MEDS ORDERED: Albuterol 2.5 MG/3 ML VIAL INH PRN (14:35)
[2024-12-11] MEDS ORDERED: Atropine Sulfate 0.1 MG/ML 10ML SYR IV PRN (14:40)
[2024-12-11] MEDS ORDERED: Tranexamic Acid 100 ML IV SCH (15:00)
[2024-12-11] MEDS ORDERED: Ketorolac Tromethamine 30mg Vial ONE (16:15)
[2024-12-11] MEDS ORDERED: Sugammadex Sodium 200 MG/2ML SDV (100 MG/ML) ONE (16:15)
[2024-12-11] MEDS ORDERED: Carvedilol 3.125 MG Tab PO SCH (17:00)
[2024-12-11] MEDS ORDERED: Ketorolac Tromethamine 15mg Vial IV SCH (18:00)
--- NOTE | 2024-12-11 18:17 | NUR ---
POST-OP PATIENT ARRIVED TO ROOM 219 @ 1730. VITALS STABLE, DRESSING INTACT AND CLEAN. DENIES PAIN, DECERASED SENSATION TO RIGHT SHOULDER AND HUMERUS AREA. UNABLE TO WIGGLE FINGERS. CAP REFILL IS <3. TOLERATING PO INTAKE.CALL LIGHT IN REACH , VISITOR IN ROOM
[2024-12-11] MEDS ORDERED: buPROPion HCL 150 MG TAB.SR.12H PO SCH (21:00)
[2024-12-11] MEDS ORDERED: Docusate Sodium 100 MG Cap PO SCH (21:00)
[2024-12-12 00:36] VITALS: BP 143/63
[2024-12-12 03:43] VITALS: BP 124/57
[2024-12-12 05:44] LABS: BASOPHILS ABSOLUTE AUTO 0.02 K/mm3 (0.00-0.23); BASOPHILS PERCENT AUTO 0 % (0-2); EOSINOPHILS ABSOLUTE AUTO 0.01 K/mm3 (0.00-0.68); EOSINOPHILS PERCENT AUTO 0 % (0-6); Hematocrit 36.7 % (37.0-53.0); Hemoglobin 12.2 g/dL (13.5-17.5); IMMATURE GRAN ABSOLUTE AUTO 0.05 K/mm3 (0.00-0.10); IMMATURE GRAN PERCENT AUTO 0 % (0-1); LYMPHOCYTES ABSOLUTE AUTO 1.28 K/mm3 (0.84-5.20); LYMPHOCYTES PERCENT AUTO 8 % (21-46); MONOCYTES ABSOLUTE AUTO 0.53 K/mm3 (0.16-1.47); MONOCYTES PERCENT AUTO 3 % (4-13); Mean Corpuscular HGB 29.5 pg (26.0-34.0); Mean Corpuscular HGB Conc 33.2 g/dL (31.5-36.5); Mean Corpuscular Volume 89 fL (80-100); Mean Platelet Volume 9.2 fL (9.1-12.4); NEUTROPHILS ABSOLUTE AUTO 13.95 K/mm3 (1.96-9.15); NEUTROPHILS PERCENT AUTO 88 % (41-73); Platelet Count 307 K/mm3 (150-400); RDW Coefficient Variation 13.7 % (11.7-14.2); RDW Standard Deviation 44.5 fL (35.1-46.3); Red Blood Cell Count 4.13 M/mm3 (4.30-5.90); White Blood Cell Count 15.84 K/mm3 (4.00-11.30)
[2024-12-12] MEDS ORDERED: Pantoprazole Sodium 40 MG Tab PO SCH (06:00)
[2024-12-12 06:11] LABS: Bun/Creatinine Ratio 17.2 (12.0-20.0); Calcium, Blood 8.7 mg/dL (8.5-10.1); Creatinine, Blood 0.99 mg/dL (0.60-1.20); Magnesium, Blood 2.3 mg/dL (1.6-2.4); Potassium, Blood 4.2 mmol/L (3.5-5.5)
[2024-12-12 07:27] VITALS: BP 146/62
--- NOTE | 2024-12-12 07:35 | NUR ---
SHIFT SUMMARY POD 1 S/P RIGHT SHOULDER REPAIR. PRINEO DRESSING CDI, NO DRAINAGE NOTED. CRYO AND IMMOBILIZER IN PLACE TO RIGHT SHOULDER T/O SHIFT. PAIN MANAGED PER EMAR AND ICE THERAPY. UP IN ROOM/BATHROOM WITH CANE, GB, SBA. SPO2 ABOVE 95% ON RA, USING CPAP WHILE SLEEPING R/T CARLENE. VOID X 1 POST OP OF 100 ML CHELSEA URINE. BLADDER SCAN AND STRAIGHT CATH COMPLETED PER PROTOCOL. PT ENCOURAGED PO FLUID T/O SHIFT. DENIES N/V, FRANCO REG DIET. PLAN TO WORK WITH THERAPY TODAY. REPORT GIVEN TO DAY RN.
[2024-12-12] MEDS ORDERED: Spironolactone 25 MG Tab PO SCH (09:00)
[2024-12-12] MEDS ORDERED: Furosemide 40 MG Tab PO SCH (09:00)
[2024-12-12] MEDS ORDERED: Citalopram Hydrobromide 20 MG Tab PO SCH (09:00)
[2024-12-12] MEDS ORDERED: Losartan Potassium 50 MG Tab PO SCH (09:00)
--- NOTE | 2024-12-12 14:16 | NUR ---
DISCHARGE PATIENT VOIDIED 500 AND WAS DISCHARGED HOME WITH ALL INSTRUCTIONS, AND BELONGINGS. IV TAKEN OUT INTACT. LEAVES VIA PRIVATE VEHICLE.
== END 2024-12-12 13:46 | disposition home or self-care (01) | DRG 483 ==
LOC: ORSCMMR 11:29 → ORD 13:00 → ORSCMMR 13:00 → SURS 13:00
PROVIDERS: ADMIT Orthopaedic Surgery
PROC: 0LS30ZZ Reposition Right Upper Arm Tendon, Open Approach (ICD-10-PCS; 2024-12-11)
PROC: 0RRJ00Z Replacement of Right Shoulder Joint with Reverse Ball and Socket Synthetic Substitute, Open Approach (ICD-10-PCS; principal; 2024-12-11 13:30)
DX: M19.011 Primary osteoarthritis, right shoulder (principal); I10 Essential (primary) hypertension; Z96.649 Presence of unspecified artificial hip joint; Z79.899 Other long term (current) drug therapy; Z90.89 Acquired absence of other organs; Z87.891 Personal history of nicotine dependence; Z79.51 Long term (current) use of inhaled steroids; Z79.891 Long term (current) use of opiate analgesic; Z91.040 Latex allergy status; Z88.5 Allergy status to narcotic agent; Z91.09 Other allergy status, other than to drugs and biological substances
CPT/HCPCS: 36415; 73030; 80048; 83735; 85025; 94660; 94762; 97110; 97116; 97162; 97165; 97530; 97535; A9270; C1713; C1776; J0171; J0690; J0735; J1100; J1885; J2250; J2405; J2704; J2795; J3010; J7120

== ENCOUNTER 2024-12-19 14:55 | Inpatient (IN) | payer OTHER ==
[~2024-12-19] VITALS: Ht 182.9 cm; Wt 145.0 kg
[2024-12-19 15:39] LABS: BASOPHILS ABSOLUTE AUTO 0.06 K/mm3 (0.00-0.23); BASOPHILS PERCENT AUTO 0 % (0-2); EOSINOPHILS ABSOLUTE AUTO 0.17 K/mm3 (0.00-0.68); EOSINOPHILS PERCENT AUTO 1 % (0-6); Hematocrit 36.7 % (37.0-53.0); Hemoglobin 11.6 g/dL (13.5-17.5); IMMATURE GRAN ABSOLUTE AUTO 0.13 K/mm3 (0.00-0.10); IMMATURE GRAN PERCENT AUTO 1 % (0-1); LYMPHOCYTES ABSOLUTE AUTO 1.05 K/mm3 (0.84-5.20); LYMPHOCYTES PERCENT AUTO 7 % (21-46); MONOCYTES ABSOLUTE AUTO 1.23 K/mm3 (0.16-1.47); MONOCYTES PERCENT AUTO 8 % (4-13); Mean Corpuscular HGB 29.1 pg (26.0-34.0); Mean Corpuscular HGB Conc 31.6 g/dL (31.5-36.5); Mean Corpuscular Volume 92 fL (80-100); Mean Platelet Volume 9.5 fL (9.1-12.4); NEUTROPHILS PERCENT AUTO 83 % (41-73); Platelet Count 308 K/mm3 (150-400); RDW Coefficient Variation 14.1 % (11.7-14.2); RDW Standard Deviation 47.8 fL (35.1-46.3); Red Blood Cell Count 3.99 M/mm3 (4.30-5.90); White Blood Cell Count 15.64 K/mm3 (4.00-11.30)
[2024-12-19 15:59] LABS: Albumin, Blood 3.2 g/dL (3.4-5.0); Albumin/Globulin Ratio 0.8 (0.8-1.8); Bilirubin, Total 0.7 mg/dL (0.1-1.0); Bun/Creatinine Ratio 12.4 (12.0-20.0); Calcium, Blood 9.3 mg/dL (8.5-10.1); Creatinine, Blood 0.97 mg/dL (0.60-1.20); Globulin, Blood 4.1 g/dL (2.2-4.0); Potassium, Blood 4.7 mmol/L (3.5-5.5); Total Protein, Blood 7.3 g/dL (6.4-8.2)
[2024-12-19] MEDS ORDERED: Ipratropium/Albuterol SulF 2.5-0.5MG/3 ML Amp INH ONE (16:20)
[2024-12-19] MEDS ORDERED: Albuterol 2.5 MG/3 ML VIAL INH SCH (16:20)
[2024-12-19] MEDS ORDERED: Acetaminophen 500 MG Tab PO ONE (16:25)
[2024-12-19] MEDS ORDERED: CefTRIAXone Sodium 1,000 MG in NS 100 ML IV ONE (16:30)
[2024-12-19] MEDS ORDERED: NS 1,000 ML IV SCH (16:35)
[2024-12-19 17:21] LABS: Influenza A, PCR NEGATIVE (NEGATIVE); Influenza B, PCR NEGATIVE (NEGATIVE); Resp Syncytial Virus, PCR NEGATIVE (NEGATIVE); SARS-Cov-2 (COVID-19) PCR, MMC NEGATIVE (NEGATIVE)
[2024-12-19] MEDS ORDERED: FLU VACC TS2024-25(6MOS UP)/PF 45 MCG/0.5 ML SYRINGE IM ONE (18:35)
[2024-12-19] MEDS ORDERED: Albuterol 2.5 MG/3 ML VIAL INH PRN (18:35)
[2024-12-19] MEDS ORDERED: HydrALAZINE HCl 20 MG / ML 1ML Vial IV PRN (18:35)
[2024-12-19] MEDS ORDERED: Azithromycin 500 MG in NS 250 ML IV ONE (18:40)
[2024-12-19] MEDS ORDERED: PredniSONE 20 MG Tab PO SCH (19:00)
[2024-12-19] MEDS ORDERED: ATROVENT HFA12.9 GM INH (20:44)
[2024-12-19] MEDS ORDERED: BUSPIRONE HCL30 M1 PO (20:46)
[2024-12-19 20:47] VITALS: BP 141/72
[2024-12-19] MEDS ORDERED: GABA300 PO (20:47)
[2024-12-19] MEDS ORDERED: TORSE20 PO (20:50)
[2024-12-19] MEDS ORDERED: CATAPRES0.2 M1 PO (20:52)
[2024-12-19] MEDS ORDERED: Famotidine 20 MG Tab PO SCH (21:00)
[2024-12-19] MEDS ORDERED: Lactobacil 2-S.Thermo-Bifido 1 1 Cap PO SCH (21:00)
[2024-12-19] MEDS ORDERED: Percocet 10-321 EACH PO (21:54)
[2024-12-19] MEDS ORDERED: OxyCODONE 7.5 mg/Acetam 325 mg TABLET PO PRN (22:10)
[2024-12-19] MEDS ORDERED: OXYACE7.5T PO (22:11)
[2024-12-19 23:14] VITALS: BP 140/62
[2024-12-20 03:07] VITALS: BP 139/69
[2024-12-20 06:06] LABS: Hematocrit 36.1 % (37.0-53.0); Hemoglobin 11.2 g/dL (13.5-17.5); Mean Corpuscular HGB 29.4 pg (26.0-34.0); Mean Corpuscular Volume 95 fL (80-100); Mean Platelet Volume 9.4 fL (9.1-12.4); Platelet Count 283 K/mm3 (150-400); RDW Coefficient Variation 14.2 % (11.7-14.2); RDW Standard Deviation 49.2 fL (35.1-46.3); Red Blood Cell Count 3.81 M/mm3 (4.30-5.90); White Blood Cell Count 10.01 K/mm3 (4.00-11.30)
[2024-12-20 06:42] LABS: Bun/Creatinine Ratio 16.1 (12.0-20.0); Calcium, Blood 9.2 mg/dL (8.5-10.1); Creatinine, Blood 0.87 mg/dL (0.60-1.20); Potassium, Blood 4.6 mmol/L (3.5-5.5)
[2024-12-20 07:22] VITALS: BP 135/61
[2024-12-20] MEDS ORDERED: Nicotine Polacrilex 2 MG Gum PO PRN (08:00)
[2024-12-20 15:42] VITALS: BP 153/68
[2024-12-20] MEDS ORDERED: Ipratropium Bromide INH 0.02% 0.5 mg/2.5ML Vial INH SCH (16:10)
[2024-12-20] MEDS ORDERED: Carvedilol 3.125 MG Tab PO SCH (17:00)
[2024-12-20] MEDS ORDERED: CefTRIAXone Sodium 1,000 MG in NS 100 ML IV SCH (17:00)
[2024-12-20] MEDS ORDERED: NS 250 ML IV PRN (17:00)
--- NOTE | 2024-12-20 17:15 | NUR ---
SHIFT SUMMARY: NO EVENTS OR CHANGES WITH THE PATIENT THROUGHOUT THE SHIFT. HE IS A&OX4/INDEPENDENT, CALLS APPROPRIATELY AND IS PLEASANT AND COOPERATIVE WITH CARE. PATIENT OXYGEN SATURATION GREATER THAN 92% ON ROOM AIR, BUT FEELS MORE COMFORTABLE WEARING THE 1 LITER SO CONTINUES TO WEAR IT FOR COMFORT WHEN FEELS SHORT OF BREATH; MAINLY WITH ACTIVITY. INCENTIVE SPIROMETER AND FLUTTER VALVE PROVIDED AND EDUCATED FOR PNEUMONIA AND PHLEGM. HE IS IN BED, CALL LIGHT WITHIN REACH, NO SIGNS OR SYMPTOMS OF DISTRESS, PLAN OF CARE ONGOING.
[2024-12-20] MEDS ORDERED: buPROPion HCL 150 MG TAB.SR.12H PO SCH (18:00)
[2024-12-20 19:45] VITALS: BP 154/68
[2024-12-20] MEDS ORDERED: Gabapentin 300 MG Cap PO SCH (21:00)
[2024-12-20] MEDS ORDERED: BusPIRone HCl 10 MG Tab PO SCH (21:00)
[2024-12-20] MEDS ORDERED: CloNIDine HCl 0.2 MG Tab PO SCH (21:00)
[2024-12-21 04:16] VITALS: BP 141/73
--- NOTE | 2024-12-21 05:05 | NUR ---
SHIFT SUMMARY: PT AOX4, IND IN THE ROOM, TOLERATING MEDICATIONS WELL. PT ANXIOUS ABOUT NOT HAVING SOME OF HIS BREATHING TREATMENTS/ INHALERS THAT HE TAKES AT HOME IN THE HOSPITAL. RT VISITED WITH THE PT AND PT INSTRUCTED TO HAVE FAMILY OR FRIEND BRING IN MEDICATIONS AND THEN GET THEM VERIFIED WITH PHARMACY. ALSO INSTRUCTED TO DISCUSS THE MEDICATIONS WITH HOSPITALIST BEFORE TAKING THEM. CONCERNED ABOUT FUTURE LUNG HEALTH AND HOW HE ACQUIRED THE PNEUMONIA. PT ANXIOUS AND IN A LOT OF PAIN. MEDICATED PER EMR. STILL PLEASANT AND COOPERATIVE IN CARE. JUST UPSET ABOUT SOME OF THE HICCUPS AND PERCIEVED MISCOMMUNICATIONS. EDUCATED ON USE OF IS AND FLUTTER VALVE. PT TOLERATING MEDICATIONS AND NO ACUTE EVENTS OVERNIGHT. PT RESTING IN BED, BED IN LOWEST POSITION, CALL LIGHT IN REACH. CONTINUING CARE.
[2024-12-21 05:12] LABS: BASOPHILS ABSOLUTE AUTO 0.02 K/mm3 (0.00-0.23); BASOPHILS PERCENT AUTO 0 % (0-2); EOSINOPHILS ABSOLUTE AUTO 0.01 K/mm3 (0.00-0.68); EOSINOPHILS PERCENT AUTO 0 % (0-6); Hematocrit 31.4 % (37.0-53.0); Hemoglobin 9.9 g/dL (13.5-17.5); IMMATURE GRAN ABSOLUTE AUTO 0.14 K/mm3 (0.00-0.10); IMMATURE GRAN PERCENT AUTO 1 % (0-1); LYMPHOCYTES ABSOLUTE AUTO 1.92 K/mm3 (0.84-5.20); LYMPHOCYTES PERCENT AUTO 17 % (21-46); MONOCYTES ABSOLUTE AUTO 1.05 K/mm3 (0.16-1.47); MONOCYTES PERCENT AUTO 9 % (4-13); Mean Corpuscular HGB 29.3 pg (26.0-34.0); Mean Corpuscular HGB Conc 31.5 g/dL (31.5-36.5); Mean Corpuscular Volume 93 fL (80-100); Mean Platelet Volume 9.5 fL (9.1-12.4); NEUTROPHILS ABSOLUTE AUTO 8.12 K/mm3 (1.96-9.15); NEUTROPHILS PERCENT AUTO 72 % (41-73); Platelet Count 263 K/mm3 (150-400); RDW Coefficient Variation 14.1 % (11.7-14.2); RDW Standard Deviation 47.8 fL (35.1-46.3); Red Blood Cell Count 3.38 M/mm3 (4.30-5.90); White Blood Cell Count 11.26 K/mm3 (4.00-11.30)
[2024-12-21 05:50] LABS: Bun/Creatinine Ratio 21.6 (12.0-20.0); Creatinine, Blood 0.83 mg/dL (0.60-1.20); Potassium, Blood 4.8 mmol/L (3.5-5.5)
[2024-12-21 07:39] VITALS: BP 169/76
[2024-12-21] MEDS ORDERED: Furosemide 10 MG / ML 2ML Vial IV SCH (09:00)
[2024-12-21] MEDS ORDERED: Citalopram Hydrobromide 20 MG Tab PO SCH (09:00)
[2024-12-21] MEDS ORDERED: Losartan Potassium 50 MG Tab PO SCH (09:00)
[2024-12-21] MEDS ORDERED: Rivaroxaban 10 MG Tab PO SCH (09:00)
[2024-12-21] MEDS ORDERED: Spironolactone 25 MG Tab PO SCH (09:00)
[2024-12-21] MEDS ORDERED: Azithromycin 250 MG Tab PO ONE (14:30)
[2024-12-21] MEDS ORDERED: PRED20 PO (15:38)
[2024-12-21] MEDS ORDERED: AMOCLA875 PO (15:39)
[2024-12-21] MEDS ORDERED: AZIT250 PO (15:41)
--- NOTE | 2024-12-21 16:40 | NUR ---
PT DISCHARGED HOME. FRIEND AT BEDSIDE WILL DRIVE PT HOME. DISCHARGE INSTRUCTIONS DISCUSSED WITH PT. INSTRUCTED PT TO START NEW MEDICATIONS TOMORROW ORDERED BY DR. ELMORE. PT VERBALIZED UNDERSTANDING, NO QUESTIONS OR CONCERNS AT THIS TIME
== END 2024-12-21 16:15 | disposition home or self-care (01) | DRG 871 ==
LOC: ER 14:55 → ERHOLD 18:30 → MEDS 18:30
PROVIDERS: Internal Medicine; Student in an Organized Health Care Education/Training Program; ADMIT Internal Medicine
DX: A41.9 Sepsis, unspecified organism (principal); I50.33 Acute on chronic diastolic (congestive) heart failure; J18.9 Pneumonia, unspecified organism; J96.01 Acute respiratory failure with hypoxia; Z68.41 Body mass index [BMI] 40.0-44.9, adult; R65.20 Severe sepsis without septic shock; I48.0 Paroxysmal atrial fibrillation; I11.0 Hypertensive heart disease with heart failure; G89.29 Other chronic pain; J45.909 Unspecified asthma, uncomplicated; F41.8 Other specified anxiety disorders; G47.33 Obstructive sleep apnea (adult) (pediatric); E66.9 Obesity, unspecified; Z96.611 Presence of right artificial shoulder joint; Z96.643 Presence of artificial hip joint, bilateral; Z88.5 Allergy status to narcotic agent; Z91.040 Latex allergy status; Z22.359 Carrier of Enterobacterales, unspecified; Z79.01 Long term (current) use of anticoagulants
CPT/HCPCS: 0241U; 36415; 71046; 80048; 80053; 83605; 83880; 84484; 85025; 85027; 93005; 93010; 94640; 94644; 94664; 94760; 94761; 96361; 96374; 99285-25; A9270; J0456; J0696; J1940; J7030; J7050; J7512

== ENCOUNTER 2025-03-07 20:33 | Inpatient (IN) | payer OTHER ==
[~2025-03-07] VITALS: Ht 185.4 cm; Wt 149.5 kg
[~2025-03-07 20:33] MED LIST changes: +AMOCLA875 PO; +AZIT250 PO; +BUSPIRONE HCL30 M1 PO; +CATAPRES0.2 M1 PO
[2025-03-07] MEDS ORDERED: Ipratropium/Albuterol SulF 2.5-0.5MG/3 ML Amp INH PRN ×2 (20:45→22:45)
[2025-03-07 20:53] LABS: BASOPHILS ABSOLUTE AUTO 0.05 K/mm3 (0.00-0.23); BASOPHILS PERCENT AUTO 0 % (0-2); EOSINOPHILS ABSOLUTE AUTO 0.36 K/mm3 (0.00-0.68); EOSINOPHILS PERCENT AUTO 3 % (0-6); Hematocrit 37.9 % (37.0-53.0); Hemoglobin 12.2 g/dL (13.5-17.5); IMMATURE GRAN ABSOLUTE AUTO 0.04 K/mm3 (0.00-0.10); IMMATURE GRAN PERCENT AUTO 0 % (0-1); LYMPHOCYTES ABSOLUTE AUTO 2.03 K/mm3 (0.84-5.20); LYMPHOCYTES PERCENT AUTO 15 % (21-46); MONOCYTES ABSOLUTE AUTO 1.11 K/mm3 (0.16-1.47); MONOCYTES PERCENT AUTO 8 % (4-13); Mean Corpuscular HGB 29.6 pg (26.0-34.0); Mean Corpuscular HGB Conc 32.2 g/dL (31.5-36.5); Mean Corpuscular Volume 92 fL (80-100); NEUTROPHILS ABSOLUTE AUTO 10.16 K/mm3 (1.96-9.15); NEUTROPHILS PERCENT AUTO 74 % (41-73); Platelet Count 236 K/mm3 (150-400); RDW Coefficient Variation 13.9 % (11.7-14.2); Red Blood Cell Count 4.12 M/mm3 (4.30-5.90); White Blood Cell Count 13.75 K/mm3 (4.00-11.30)
[2025-03-07 21:18] LABS: Albumin, Blood 3.4 g/dL (3.4-5.0); Bilirubin, Total 0.4 mg/dL (0.1-1.0); Bun/Creatinine Ratio 18.9 (12.0-20.0); Calcium, Blood 8.4 mg/dL (8.5-10.1); Creatinine, Blood 1.11 mg/dL (0.60-1.20); Globulin, Blood 3.5 g/dL (2.2-4.0); Potassium, Blood 4.3 mmol/L (3.5-5.5); Total Protein, Blood 6.9 g/dL (6.4-8.2)
[2025-03-07] MEDS ORDERED: NS IV ONE (21:40)
[2025-03-07] MEDS ORDERED: Cefepime HCl 2,000 MG in NS 50 ML IV ONE (21:40)
[2025-03-07] MEDS ORDERED: VANCOMYCIN HCL IV ONE (21:40)
[2025-03-07 22:03] LABS: Magnesium, Blood 1.9 mg/dL (1.6-2.4); Phosphorus, Blood 3.4 mg/dL (2.5-4.9)
[2025-03-07] MEDS ORDERED: Vancomycin HCL 2,500 MG in NS 500 ML IV ONE (22:10)
[2025-03-07] MEDS ORDERED: Acetaminophen 325 MG TABLET PO PRN (22:40)
[2025-03-07] MEDS ORDERED: Ondansetron HCl 2 MG / ML 2ML Vial IV PRN (22:45)
[2025-03-07] MEDS ORDERED: Azithromycin 500 MG in NS 250 ML IV SCH (22:50)
[2025-03-07] MEDS ORDERED: MethylPREDNISolone Sod Succ 125 MG Vial IV SCH (23:00)
[2025-03-07] MEDS ORDERED: Enoxaparin 40 MG/0.4 ML SYR SC SCH (23:00)
[2025-03-07] MEDS ORDERED: NS 250 ML IV PRN (23:30)
[2025-03-08] VITALS (7 sets, daily range): BP systolic 118–149; BP diastolic 62–76
[2025-03-08 00:05] LABS: Influenza A, PCR NEGATIVE (NEGATIVE); Influenza B, PCR NEGATIVE (NEGATIVE); Resp Syncytial Virus, PCR NEGATIVE (NEGATIVE); SARS-Cov-2 (COVID-19) PCR, MMC NEGATIVE (NEGATIVE)
[2025-03-08] MEDS ORDERED: OxyCODONE 7.5 mg/Acetam 325 mg TABLET PO PRN (01:45)
[2025-03-08] MEDS ORDERED: Nicotine Polacrilex 2 MG Gum PO PRN ×2 (01:45→11:25)
[2025-03-08 05:43] LABS: BASOPHILS ABSOLUTE AUTO 0.03 K/mm3 (0.00-0.23); BASOPHILS PERCENT AUTO 0 % (0-2); EOSINOPHILS ABSOLUTE AUTO 0.01 K/mm3 (0.00-0.68); EOSINOPHILS PERCENT AUTO 0 % (0-6); Hematocrit 37.8 % (37.0-53.0); Hemoglobin 11.8 g/dL (13.5-17.5); IMMATURE GRAN ABSOLUTE AUTO 0.05 K/mm3 (0.00-0.10); IMMATURE GRAN PERCENT AUTO 0 % (0-1); LYMPHOCYTES ABSOLUTE AUTO 1.09 K/mm3 (0.84-5.20); LYMPHOCYTES PERCENT AUTO 10 % (21-46); MONOCYTES ABSOLUTE AUTO 0.14 K/mm3 (0.16-1.47); MONOCYTES PERCENT AUTO 1 % (4-13); Mean Corpuscular HGB 29.3 pg (26.0-34.0); Mean Corpuscular HGB Conc 31.2 g/dL (31.5-36.5); Mean Corpuscular Volume 94 fL (80-100); Mean Platelet Volume 9.5 fL (9.1-12.4); NEUTROPHILS ABSOLUTE AUTO 10.08 K/mm3 (1.96-9.15); NEUTROPHILS PERCENT AUTO 88 % (41-73); Platelet Count 220 K/mm3 (150-400); RDW Coefficient Variation 13.8 % (11.7-14.2); Red Blood Cell Count 4.03 M/mm3 (4.30-5.90)
[2025-03-08] MEDS ORDERED: CefTRIAXone Sodium 1,000 MG in NS 100 ML IV SCH (06:00)
[2025-03-08 06:06] LABS: Albumin, Blood 3.1 g/dL (3.4-5.0); Albumin/Globulin Ratio 0.9 (0.8-1.8); Bilirubin, Total 0.5 mg/dL (0.1-1.0); Bun/Creatinine Ratio 20.3 (12.0-20.0); Calcium, Blood 8.4 mg/dL (8.5-10.1); Creatinine, Blood 0.99 mg/dL (0.60-1.20); Globulin, Blood 3.6 g/dL (2.2-4.0); Potassium, Blood 4.2 mmol/L (3.5-5.5); Total Protein, Blood 6.7 g/dL (6.4-8.2)
--- NOTE | 2025-03-08 06:29 | NUR ---
308 SHIFT SUMMARY PT ARRIVED FROM ED APPROX 2357. ADMITTED FOR RLL PNA. PT USES CPAP AT NIGHT. HR DROPS TO LOW 40 S. PT STATES THIS IS NORMAL FOR HIM. PT ALSO USES 80MG NICOTINE GUM PER DAY. CALLED HOSPITALIST TO MAKE HIM AWARE. VERY LOW DOSE IN COMPARISON ORDERED FOR PT OF 2MG Q2HR FOR TOTAL OF 24MG PER DAY. DISCUSSED THIS WITH PHARMACY. PT HAS HIS 4MG NICOTINE GUM IN HIS SHIRT POCKET. PT STATED HE WOULD ONLY GIVE UP HIS GUM IF PHARMACY WAS PUTTING A LABEL ON IT TO ADMINISTER TO HIM. PT EDUCATED ON HIGH NICOTINE LEVELS. PT AGREES NOT TO TAKE HIS GUM UNTIL MATTER CAN BE RESOLVED. WILL PASS ON TO DAY SHIFT. PT SWEATING PROFUSELY.
[2025-03-08] MEDS ORDERED: Clotrimazole 1% Cream 15 GM Tube TOP PRN (06:30)
[2025-03-08] MEDS ORDERED: Ipratropium Bromide INH 0.02% 0.5 mg/2.5ML Vial INH SCH (06:35)
[2025-03-08] MEDS ORDERED: Carvedilol 3.125 MG Tab PO SCH (08:00)
[2025-03-08] MEDS ORDERED: CloNIDine HCl 0.2 MG Tab PO SCH (09:00)
[2025-03-08] MEDS ORDERED: Citalopram Hydrobromide 20 MG Tab PO SCH (09:00)
[2025-03-08] MEDS ORDERED: Losartan Potassium 50 MG Tab PO SCH (09:00)
[2025-03-08] MEDS ORDERED: BusPIRone HCl 10 MG Tab PO SCH (09:00)
[2025-03-08] MEDS ORDERED: Rivaroxaban 10 MG Tab PO SCH (09:00)
[2025-03-08] MEDS ORDERED: Gabapentin 300 MG Cap PO SCH ×2 (09:00→21:00)
[2025-03-08] MEDS ORDERED: buPROPion HCL 150 MG TAB.SR.12H PO SCH (09:00)
[2025-03-08] MEDS ORDERED: Spironolactone 50 MG Tab PO SCH (09:00)
[2025-03-08] MEDS ORDERED: Torsemide 20 MG TAB PO SCH (09:00)
[2025-03-08] MEDS ORDERED: AMLO10 PO (09:14)
--- NOTE | 2025-03-08 18:28 | NUR ---
ASSUMED CARE OF PT, A/O X 4, PT HAS BEEN VERY LOUD AND PLEASENT TODAY, NO CHANGE IN PT CONDITION AND HAS BEEN MEDICALLY STABLE, WOUNDS TO RIGHT FT AND LEFT CALF WERE CHANGED PER MD AND PT MEDICATED FOR PAIN. PT REMAIN IND IN ROOM AND HAS BEEN CALL APPROPRIATLY. TODAY PT HAD VISIT FROM AN INTERVIEWER FROM A [facility] IN [place]. WITH 2 MIN PT WAS SCREAMING AND YELLING AT INTERVIEWER . PT WAS VERY UP SET THAT INTERVIEWER WAS ACCUSING HIM OF BEING HOMELESS AND HAD HISTORY OF BEING KICKED OUT OF SEVERAL [employer] HOMES IN THE [place]. INTERVIEWER LEFT VERY UPSET AND PT CONTINUED TO EXPRESS HIS ANGER UNTIL I WAS ABLE TO CALM HIM AND REDIRECT HIS FOCUS. FOR THE NEXT SERVERAL HOURS PT WAS UPSET AND LISTENED TO MUSIC IN HIS ROOM FOR SELF SOOTHING. PT IS NOW CALM AND COOPERATIVE. CALL LIGHT WITHIN REACH
--- NOTE | 2025-03-08 18:52 | NUR ---
ASSUMED CARE OF PT. UNEVENTFUL DAY FOR PT, IND IN CALL APPROPRIATLY AND MAKES NEEDS KNOWN. PT BREATHING MUCH BETTER AND HAS BEEN MAINTAINING WNL OFF O2. PT PUT O2 ON FOR COMFORT WHEN LAYING IN BED. RT TREATMENT THROUGHOUT SHIFT. NICOTINE GUM ORDERED FOR PT. PT IS AWARE HE CAN ASK FOR THE GUM.
[2025-03-08] MEDS ORDERED: Lactobacil 2-S.Thermo-Bifido 1 1 Cap PO SCH (21:00)
[2025-03-09 03:24] VITALS: BP 130/68
[2025-03-09 05:25] LABS: BASOPHILS ABSOLUTE AUTO 0.01 K/mm3 (0.00-0.23); BASOPHILS PERCENT AUTO 0 % (0-2); EOSINOPHILS PERCENT AUTO 0 % (0-6); Hematocrit 34.5 % (37.0-53.0); Hemoglobin 11.1 g/dL (13.5-17.5); IMMATURE GRAN ABSOLUTE AUTO 0.08 K/mm3 (0.00-0.10); IMMATURE GRAN PERCENT AUTO 1 % (0-1); LYMPHOCYTES ABSOLUTE AUTO 1.52 K/mm3 (0.84-5.20); LYMPHOCYTES PERCENT AUTO 11 % (21-46); MONOCYTES PERCENT AUTO 5 % (4-13); Mean Corpuscular HGB 29.5 pg (26.0-34.0); Mean Corpuscular HGB Conc 32.2 g/dL (31.5-36.5); Mean Corpuscular Volume 92 fL (80-100); Mean Platelet Volume 9.2 fL (9.1-12.4); NEUTROPHILS ABSOLUTE AUTO 11.25 K/mm3 (1.96-9.15); NEUTROPHILS PERCENT AUTO 83 % (41-73); Platelet Count 217 K/mm3 (150-400); RDW Coefficient Variation 13.7 % (11.7-14.2); RDW Standard Deviation 46.5 fL (35.1-46.3); Red Blood Cell Count 3.76 M/mm3 (4.30-5.90); White Blood Cell Count 13.56 K/mm3 (4.00-11.30)
[2025-03-09 05:55] LABS: Bun/Creatinine Ratio 29.1 (12.0-20.0); Calcium, Blood 8.9 mg/dL (8.5-10.1); Creatinine, Blood 0.79 mg/dL (0.60-1.20); Potassium, Blood 4.6 mmol/L (3.5-5.5)
--- NOTE | 2025-03-09 06:16 | NUR ---
SHIFT SUMMARY PT PLEASANT AND COOPERATIVE. NOW INDEPENDENT IN ROOM. PT TOOK WALK UP AND DOWN HALLWAY BEFORE EVENING MED PASS. HE APPLIED HIS CPAP ONCE HE WAS READY FOR BED, AND SLEPT THROUGH SHIFT. PT PULSE OX ALARMED HR <45 MULTIPLE TIMES, BUT HELD STEADY MOSTLY IN THE LOW 50'S. PT AWAKE AND WATCHING TV CURRENTLY. REQUESTED PAIN MEDICATION. MEDICATED PER EMAR.
[2025-03-09 07:25] VITALS: BP 132/54
[2025-03-09] MEDS ORDERED: Furosemide 40 MG Tab PO SCH (09:00)
[2025-03-09] MEDS ORDERED: AmLODIPine Besylate 5 MG Tab PO SCH (09:00)
--- NOTE | 2025-03-09 10:28 | NUR ---
ASSUMED CARE PT UP TO CHAIR HAVING CONVERATION WITH SPEECH THERAPIST STATES HE FEELS FINE TODAY HAS NO DISTRESS AND STRESSES THAT HE WILL BE SENT HOME TOO SOON.
[2025-03-09 11:23] VITALS: BP 116/59
--- NOTE | 2025-03-09 14:34 | NUR ---
PT WILL BE STAYING FOR CONT CARE SO IS FEELING BETTER, LESS ANXIOUS. NO CHANGE IN CONDITION VSS, AT BEDSIDE
[2025-03-09 15:55] VITALS: BP 134/73
[2025-03-09] MEDS ORDERED: MethylPREDNISolone Sod Succ 40 MG VIAL IV SCH (16:00)
--- NOTE | 2025-03-09 17:40 | NUR ---
PT DOING WELL NO CHANGE CALL LIGHT WITHIN REACH MAKES NEEDS KNOWN.
[2025-03-09 19:22] VITALS: BP 140/75
[2025-03-09 23:22] VITALS: BP 148/68
[2025-03-10 03:30] VITALS: BP 156/104
--- NOTE | 2025-03-10 03:58 | NUR ---
LEATHER DRIER SHIFT SUMMARY PATIENT ADMITTED FOR BILATERAL PNEUMONIA. ALERT AND ORIENTED X4. INDEPENDENT IN ROOM, UP AD MARK. VITAL SIGNS STABLE WITH EXCEPTION OF BLOOD PRESSURE TAKEN AT 0330. PATIENT TAKES ANTIHYPERTENSIVE MEDICATION IN THE MORNING ASYMPTOMATIC AT THIS TIME. TELE SHOWS SINUS RHYTHM 78. PATIENT STATES HE HAS A HX OF PNEUMONIA SINCE 2019. PATIENT HAS +2 EDEMA IN LOWER EXTREMITIES. CONTINUOUS PULSE OX USED DURING HS READING AT 97%. PATIENT RESTING QUIETLY WITH FEW INTERRUPTIONS. BED RAILS UP X2. BED IN LOWEST POSITION FOR SAFETY. WILL CONTINUE TO MONITOR.
--- NOTE | 2025-03-10 04:06 | NUR ---
NURSE STUDENT PRECEPTOR NOTE I HAVE WORKED ALONG SIDE OF/WITH STUDENT AND HAVE READ AND AGREE WITH HER DOCUMENTATION.
[2025-03-10 05:25] LABS: BASOPHILS ABSOLUTE AUTO 0.01 K/mm3 (0.00-0.23); BASOPHILS PERCENT AUTO 0 % (0-2); EOSINOPHILS PERCENT AUTO 0 % (0-6); Hematocrit 37.5 % (37.0-53.0); Hemoglobin 12.3 g/dL (13.5-17.5); IMMATURE GRAN ABSOLUTE AUTO 0.08 K/mm3 (0.00-0.10); IMMATURE GRAN PERCENT AUTO 1 % (0-1); LYMPHOCYTES ABSOLUTE AUTO 0.97 K/mm3 (0.84-5.20); LYMPHOCYTES PERCENT AUTO 8 % (21-46); MONOCYTES ABSOLUTE AUTO 0.14 K/mm3 (0.16-1.47); MONOCYTES PERCENT AUTO 1 % (4-13); Mean Corpuscular HGB Conc 32.8 g/dL (31.5-36.5); Mean Corpuscular Volume 92 fL (80-100); Mean Platelet Volume 9.7 fL (9.1-12.4); NEUTROPHILS ABSOLUTE AUTO 10.63 K/mm3 (1.96-9.15); NEUTROPHILS PERCENT AUTO 90 % (41-73); Platelet Count 248 K/mm3 (150-400); RDW Coefficient Variation 13.7 % (11.7-14.2); RDW Standard Deviation 46.3 fL (35.1-46.3); White Blood Cell Count 11.83 K/mm3 (4.00-11.30)
[2025-03-10 05:45] LABS: Bun/Creatinine Ratio 28.8 (12.0-20.0); Calcium, Blood 8.9 mg/dL (8.5-10.1); Creatinine, Blood 0.8 mg/dL (0.60-1.20); Potassium, Blood 4.5 mmol/L (3.5-5.5)
[2025-03-10 08:28] VITALS: BP 159/79
[2025-03-10 11:33] VITALS: BP 156/82
--- NOTE | 2025-03-10 13:25 | NUR ---
PT AMBULATING IN [place] AND IS SOB WITH ACTIVITY. 1L NC PLACED FOR COMOFORT BUT IS SATTING GREATER THAN 95%.
--- NOTE | 2025-03-10 13:57 | NUR ---
PER NOTE, NOTICED PATIENT CHEWS NICOTINE GUM AT HOME PRETTY REGULARLY. BUT HAS NOT ASKED FOR ANY HERE, EVEN WITH IT AVAILABLE. EDUCATED PATIENT ON REASONING ON WHY HE CANT CHEW HIS GUM FROM HOME. PT PROVIDED WITH NICOTINE GUM PER EMAR.
[2025-03-10 15:12] VITALS: BP 159/77
[2025-03-10 19:22] VITALS: BP 161/99
[2025-03-10] MEDS ORDERED: HydrALAZINE HCl 25 MG Tab PO ONE (20:05)
[2025-03-10] MEDS ORDERED: HydrALAZINE HCl 25 MG Tab PO PRN ×2 (20:05→20:10)
[2025-03-10 21:17] VITALS: BP 159/89
[2025-03-11] VITALS: BP 142/91
--- NOTE | 2025-03-11 03:02 | NUR ---
TRUCK REPAIR SERVICE ESTIMATOR SHIFT SUMMARY PATIENT ADMITTED FOR PNEUMONIA. VITAL SIGNS STABLE. ALERT AND ORIENTED X4. INDEPENDENT IN ROOM. TELE SHOWS AFIB A 73. PATIENT COMPLAINS OF SOB ON EXERTION. LUNG SOUNDS CLEAR IN UPPER LOBES AND CRACKLES HEARD IN LOWER LOBES. PATIENT IS ON SP02 AT HS, READING AT 97%. PATIENT REQUIRING FREQUENT IV DRESSING CHANGES DUE TO BLOOD COMING FROM HIS IV SITE ALTHOUGH IV IS STILL PATENT. RESTING QUIETLY INTERMITTENLY. CALL LIGHT WITHIN REACH. BED RAILS UP X2. BED IN LOWEST POSITION FOR SAFETY. WILL CONTINUE TO MONITOR.
--- NOTE | 2025-03-11 03:30 | NUR ---
NURSE STUDENT PRECEPTOR NOTE I HAVE WORKED ALONG SIDE OF/WITH STUDENT AND HAVE READ AND AGREE WITH HER DOCUMENTATION.
[2025-03-11 04:08] VITALS: BP 167/101
[2025-03-11 05:13] LABS: BASOPHILS ABSOLUTE AUTO 0.01 K/mm3 (0.00-0.23); BASOPHILS PERCENT AUTO 0 % (0-2); EOSINOPHILS PERCENT AUTO 0 % (0-6); Hematocrit 37.7 % (37.0-53.0); Hemoglobin 12.3 g/dL (13.5-17.5); IMMATURE GRAN ABSOLUTE AUTO 0.09 K/mm3 (0.00-0.10); IMMATURE GRAN PERCENT AUTO 1 % (0-1); LYMPHOCYTES ABSOLUTE AUTO 1.31 K/mm3 (0.84-5.20); LYMPHOCYTES PERCENT AUTO 15 % (21-46); MONOCYTES ABSOLUTE AUTO 0.25 K/mm3 (0.16-1.47); MONOCYTES PERCENT AUTO 3 % (4-13); Mean Corpuscular HGB 29.7 pg (26.0-34.0); Mean Corpuscular HGB Conc 32.6 g/dL (31.5-36.5); Mean Corpuscular Volume 91 fL (80-100); Mean Platelet Volume 9.5 fL (9.1-12.4); NEUTROPHILS ABSOLUTE AUTO 7.37 K/mm3 (1.96-9.15); NEUTROPHILS PERCENT AUTO 82 % (41-73); Platelet Count 254 K/mm3 (150-400); RDW Coefficient Variation 13.7 % (11.7-14.2); RDW Standard Deviation 45.6 fL (35.1-46.3); Red Blood Cell Count 4.14 M/mm3 (4.30-5.90); White Blood Cell Count 9.03 K/mm3 (4.00-11.30)
[2025-03-11 05:33] LABS: Bun/Creatinine Ratio 32.3 (12.0-20.0); Calcium, Blood 8.7 mg/dL (8.5-10.1); Creatinine, Blood 0.74 mg/dL (0.60-1.20); Potassium, Blood 4.5 mmol/L (3.5-5.5)
[2025-03-11 07:47] VITALS: BP 126/96
[2025-03-11] MEDS ORDERED: AMOCLA875 PO (13:10)
[2025-03-11] MEDS ORDERED: PRED20 PO (13:12)
[2025-03-11] MEDS ORDERED: VISBIOME 112.51 EACH PO (13:12)
== END 2025-03-11 14:13 | disposition home or self-care (01) | DRG 193 ==
LOC: ER 20:33 → MEDS 22:10
PROVIDERS: Family Medicine; Internal Medicine; Student in an Organized Health Care Education/Training Program; ADMIT Internal Medicine
PROC: 5A09357 Assistance with Respiratory Ventilation, Less than 24 Consecutive Hours, Continuous Positive Airway Pressure (ICD-10-PCS; principal; 2025-03-08)
DX: J18.9 Pneumonia, unspecified organism (principal); J96.01 Acute respiratory failure with hypoxia; J45.901 Unspecified asthma with (acute) exacerbation; I50.32 Chronic diastolic (congestive) heart failure; Z68.41 Body mass index [BMI] 40.0-44.9, adult; I48.0 Paroxysmal atrial fibrillation; I11.0 Hypertensive heart disease with heart failure; G89.29 Other chronic pain; F41.8 Other specified anxiety disorders; G47.33 Obstructive sleep apnea (adult) (pediatric); E66.9 Obesity, unspecified; F10.91 Alcohol use, unspecified, in remission; Z96.643 Presence of artificial hip joint, bilateral; Z96.612 Presence of left artificial shoulder joint; Z96.611 Presence of right artificial shoulder joint; Z91.041 Radiographic dye allergy status; Z88.5 Allergy status to narcotic agent; Z79.01 Long term (current) use of anticoagulants; Z79.52 Long term (current) use of systemic steroids; Z87.891 Personal history of nicotine dependence
CPT/HCPCS: 0241U; 36415; 71046; 80048; 80053; 83605; 83735; 83880; 84100; 84145; 84484; 85025; 87040; 92610; 93005; 93010; 94640; 94660; 94664; 94761; 94762; 99285-25; A9270; J0456; J0692; J0696; J1650; J2919; J3370; J7040; J7050

== ENCOUNTER → 2025-05-26 | Outpatient (CLI) | payer OTHER ==
[~2025-05-26] MED LIST changes: +AMLO10 PO; +VISBIOME 112.51 EACH PO
== END ==
LOC: LAB 12:00 → LAB SHORT 12:00
PROVIDERS: Hospitalist
DX: G89.4 Chronic pain syndrome (principal)

== ENCOUNTER → 2025-10-19 | Outpatient (CLI) | payer OTHER ==
[~2025-10-19] MED LIST changes: +CEPH500 PO; +DUPIXENT P300 MG/2 M SC; +FUROSEMIDE40 MG PO; +IPRAT-ALBUT 0.5-3 ML INH; +Potassium Chlo20 ME1 PO; +Prednisone10 MG PO; +SPIR25 PO; -SPIR50 PO; +XARELTO20 M1 PO
== END | disposition home or self-care (01) ==
LOC: LAB 10:29 → LAB SHORT 10:29
DX: Z01.89 Encounter for other specified special examinations (principal); B96.20 Unspecified Escherichia coli [E. coli] as the cause of diseases classified elsewhere
CPT/HCPCS: 87070; 87077; 87102; 87106; 87186; 87205